=== PATIENT | male | born 1940 | race Caucasian/White ===

== ENCOUNTER 2022-01-23 17:03 | Inpatient (IN) | payer MEDICARE, OTHER ==
[~2022-01-23] VITALS: Ht 177.8 cm; Wt 81.5 kg
[2022-01-23 17:32] LABS: BASOPHILS % (AUTO) 0 % (0-10); EOSINOPHILS % (AUTO) 1 % (0-10); HEMATOCRIT 34 % (40-54); LYMPHOCYTES # (AUTO) 0.9 10^3/uL (1.0-4.0); LYMPHOCYTES % (AUTO) 12 % (12-44); MEAN CORPUSCULAR HEMOGLOBIN 27 pg (25-34); MEAN CORPUSCULAR HGB CONC 36 g/dL (32-36); MEAN CORPUSCULAR VOLUME 75 fL (80-99); MEAN PLATELET VOLUME 8.6 fL (9.0-12.2); MONOCYTES # (AUTO) 0.5 10^3/uL (0.0-1.0); MONOCYTES % (AUTO) 6 % (0-12); NEUTROPHILS # (AUTO) 6.2 10^3/uL (1.8-7.8); NEUTROPHILS % (AUTO) 81 % (42-75); PLATELET COUNT 405 10^3/uL (130-400); WHITE BLOOD COUNT 7.7 10^3/uL (4.3-11.0)
--- NOTE | 2022-01-23 17:36 | Diagnostic Imaging Report ---
INDICATION: Weak, vomiting. Shortness of air. COMPARISON: None FINDINGS: Two frontal radiographic views of the chest were obtained and demonstrate normal heart size and pulmonary vascularity. The lungs are well aerated and clear. No large pleural effusion or pneumothorax is seen. The visualized osseous structures show no acute abnormalities. IMPRESSION: 1. No acute cardiopulmonary process. Dictated by: Dictated on workstation # [id number]
--- NOTE | 2022-01-23 17:42 | ED Abdominal Pain ---
General Chief Complaint: Abdominal/GI Problems Stated Complaint: WEAKNESS/VOMITING Nursing Triage Note: PT PRESENTS TO ED WITH COMPLAINTS OF COMPLAINTS OF N/V, IRRITATION, HEARTBURN, RAND SINCE YESTERDAY EVENING. Source of Information: Patient Exam Limitations: No Limitations History of Present Illness Date Seen by Provider: Jan 23, 2022 Time Seen by Provider: 17:40 Initial Comments To ER from [facility] where he is at for rehab following a right hip fracture. He has a headache and vomiting since yesterday. No fevers or chills. He had Zofran called in and has been receiving that without much improvement in symptoms. Timing/Duration: 1-2 Days Severity/Quality: Moderate Radiation: No Radiation Activities at Onset: None Associated Symptoms: Headache, Nausea/Vomiting Allergies and Home Medications Allergies Coded Allergies: Penicillins (Verified Allergy, Unknown, 01/23/22) bee venom protein (honey bee) (Verified Allergy, Unknown, 01/23/22) codeine (Verified Allergy, Unknown, 01/23/22) Patient Home Medication List Home Medication List Reviewed: Yes Review of Systems Review of Systems Constitutional: see HPI EENTM: No Symptoms Reported Respiratory: No Symptoms Reported Cardiovascular: No Symptoms Reported Gastrointestinal: See HPI, Abdominal Pain; Denies Diarrhea; Nausea Genitourinary: No Symptoms Reported Musculoskeletal: no symptoms reported Psychiatric/Neurological: No Symptoms Reported Endocrine: No Symptoms Reported Hematologic/Lymphatic: No Symptoms Reported Past Yjoniwu-Yylhwq-Lleaqq Hx Patient Social History Tobacco Use?: Yes Smoking Status: Former Smoker Substance use?: No Alcohol Use?: No Pt feels they are or have been: No Immunizations Up To Date First/Initial COVID19 Vaccinat: YES Second COVID19 Vaccination Rick: YES 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 Physical Exam Vital Signs Vital Signs - First Documented 01/23/22 17:28 Temp 35.8 Pulse 77 Resp 18 B/P (MAP) 167/92 (117) Pulse Ox 94 Capillary Refill : Less Than 3 Seconds Height/Weight/BMI Height: '" Weight: lbs. oz. kg; 26.00 BMI Method: General Appearance: WD/WN, no apparent distress, other (No distress alert and oriented GCS 15. He states his headache "isNt bad".) HEENT: PERRL/EOMI, normal ENT inspection Neck: non-tender, full range of motion Respiratory: no respiratory distress, no accessory muscle use Cardiovascular: regular rate, rhythm, no murmur Gastrointestinal: normal bowel sounds, soft, tenderness (Right abdomen tender. Old healed incisions to the midline abdomen and right lower abdomen from what he states was appendectomy and cholecystectomy.) Extremities: normal range of motion, non-tender, normal inspection Skin: normal color, warm/dry Progress/Results/Core Measures Results/Orders Lab Results Laboratory Tests Test 01/23/22 17:25 Range/Units White Blood Count 7.7 4.3-11.0 10^3/uL Red Blood Count 4.48 4.30-5.52 10^6/uL Hemoglobin 12.0 L 13.3-17.7 g/dL Hematocrit 34 L 40-54 % Mean Corpuscular Volume 75 L 80-99 fL Mean Corpuscular Hemoglobin 27 25-34 pg Mean Corpuscular Hemoglobin Concent 36 32-36 g/dL Red Cell Distribution Width 13.3 10.0-14.5 % Platelet Count 405 H 130-400 10^3/uL Mean Platelet Volume 8.6 L 9.0-12.2 fL Immature Granulocyte % (Auto) 1 % Neutrophils (%) (Auto) 81 H 42-75 % Lymphocytes (%) (Auto) 12 12-44 % Monocytes (%) (Auto) 6 0-12 % Eosinophils (%) (Auto) 1 0-10 % Basophils (%) (Auto) 0 0-10 % Neutrophils # (Auto) 6.2 1.8-7.8 10^3/uL Lymphocytes # (Auto) 0.9 L 1.0-4.0 10^3/uL Monocytes # (Auto) 0.5 0.0-1.0 10^3/uL Eosinophils # (Auto) 0.0 0.0-0.3 10^3/uL Basophils # (Auto) 0.0 0.0-0.1 10^3/uL Immature Granulocyte # (Auto) 0.1 0.0-0.1 10^3/uL Prothrombin Time 14.1 12.2-14.7 SEC INR Comment 1.1 0.8-1.4 Sodium Level 108 *L 135-145 MMOL/L Potassium Level 3.1 L 3.6-5.0 MMOL/L Chloride Level 74 L 98-107 MMOL/L Carbon Dioxide Level 21 21-32 MMOL/L Anion Gap 13 5-14 MMOL/L Blood Urea Nitrogen 9 7-18 MG/DL Creatinine 0.80 0.60-1.30 MG/DL Estimat Glomerular Filtration Rate 88 BUN/Creatinine Ratio 11 Glucose Level 115 H 70-105 MG/DL Calcium Level 8.9 8.5-10.1 MG/DL Corrected Calcium 9.1 8.5-10.1 MG/DL Magnesium Level 1.3 L 1.6-2.4 MG/DL Total Bilirubin 1.2 H 0.1-1.0 MG/DL Aspartate Amino Transf (AST/SGOT) 24 5-34 U/L Alanine Aminotransferase (ALT/SGPT) 19 0-55 U/L Alkaline Phosphatase 107 40-136 U/L B-Type Natriuretic Peptide 41.0 <100.0 PG/ML Total Protein 6.4 6.4-8.2 GM/DL Albumin 3.8 3.2-4.5 GM/DL Lipase 35 8-78 U/L My Orders Orders - ANUPAM RAYMOND FIELD REP Cbc With Automated Diff (01/23/22 17:14) Comprehensive Metabolic Panel (01/23/22 17:14) Ua Culture If Indicated (01/23/22 17:14) Ed Iv/Invasive Line Start (01/23/22 17:14) Chest 1 View, Ap/Pa Only (01/23/22 17:14) Magnesium (01/23/22 17:14) Bnp Kailyn (01/23/22 17:14) Lipase (01/23/22 17:14) Protime With Inr (01/23/22 17:14) Ct Head Wo (01/23/22 17:38) Ct Abdomen/Pelvis Wo (01/23/22 17:38) Lactated Ringers (Lr 1000 Ml Iv Solution (01/23/22 17:45) Ketorolac Injection (Toradol Injection) (01/23/22 17:45) Promethazine Injection (Phenergan Injec (01/23/22 17:45) Sodium Chloride 3% (Hypertonic Sodium Ch (01/23/22 18:30) Osmolality Urine (01/23/22 18:38) Osmolality Serum (01/23/22 18:38) Sodium Urine Random (01/23/22 18:38) Thyroid Stimulating Hormone (01/23/22 18:38) Medications Given in ED Current Medications Medications Dose Ordered Sig/Latasha Route Start Time Stop Time Status Last Admin Dose Admin Ketorolac Tromethamine 15 mg ONCE ONCE IVP 01/23/22 17:45 01/23/22 17:46 DC 01/23/22 18:15 15 MG Promethazine HCl 12.5 mg ONCE ONCE IVP 01/23/22 17:45 01/23/22 17:46 DC 01/23/22 18:15 12.5 MG Vital Signs/I&O 01/23/22 17:28 Temp 35.8 Pulse 77 Resp 18 B/P (MAP) 167/92 (117) Pulse Ox 94 Blood Pressure Mean: 117 Departure Communication (Admissions) 1835-spoke with Dr. Junior hospitalist and Dr. Dorantes from [facility]. They would both like to finish the liter of LR. Then we will repeat a basic metabolic at 4 hours after the first 1 which would be 2124. She would also like a serum osmolality sent at that point and would like a urine osmolality and urine sodium as well as TSH sent. He is alert. There is been no seizure history. He is never been here before for me to evaluate previous sodium levels. 1851-spoke with the patient and his daughter who is at the bedside. They are not aware that his sodium has ever been low. Daughter asks if this could make him more tired than usual because he does seem to be a bit more tired recently. He states that he has been eating and drinking fine until yesterday when he developed the nausea and the headache and because of that he did not eat much but he did drink plenty of fluids and reports that he still feels like he is drinking enough fluids. He does not appear to be hyper or hypovolemic. Mucous membranes are moist. He has surprisingly mild symptoms given his severe hyponatremia. He was able to use the urinal to produce a urine sample for us. NAME: ANN MARIE JAIN MED REC#: [id number] PT STATUS: REG ER : 1940 PHYSICIAN: ANUPAM RAYMOND APRN ADMIT DATE: 01/23/22/ER Draft Date of Exam:01/23/22 CT HEAD WO INDICATION: HEADACHE VOMITING. TECHNIQUE: Routine non contrast-enhanced axial images were obtained from the skull base to the vertex. Auto Exposure Controls were utilized during the CT exam to meet ALARA standards for radiation dose reduction COMPARISON: None. FINDINGS: The ventricles and cortical sulci are diffusely prominent, compatible with age-related volume loss. There are confluent areas of abnormal, low attenuation in the periventricular white matter. Findings are most suggestive of chronic small vessel ischemic changes. There is, however, an asymmetric area of more prominent diminished attenuation extending from the periventricular deep white matter of the posterior horn of the right lateral ventricle to the subcortical deep white matter of the right temporal lobe. Cortical medullary differentiation in this area is maintained. There is no midline shift or mass-effect. No acute intra-axial hemorrhage is seen. There is no intra or extra-axial intracranial hemorrhage. No extra-axial masses or collections are present. The bony calvarium is intact. The visualized paranasal sinuses show small air-fluid level in the right sphenoid sinus. The mastoid air cells are clear. IMPRESSION: 1. No CT evidence of acute infarct or intracranial hemorrhage. 2. Asymmetric prominent area of diminished deep white matter attenuation of the right parietal lobe as described above. Findings may be on the basis of focal area of asymmetric chronic small vessel ischemic change. Given preservation of wei-white matter junction differentiation, cytotoxic edema from infarct is felt to be unlikely. Vasogenic edema from underlying parenchymal mass is a consideration, although no suspicious abnormality is seen on this noncontrast exam. Correlation with postcontrast MRI of the brain is recommended. Dictated on workstation # [id number] Dict: 01/23/22 1804 Trans: 01/23/22 1812 LUIS [id number] Interpreted by: MICHEL GARCIA MD Electronically signed by: NAME: ANN MARIE JAIN [facility] REC#: [id number] PT STATUS: REG ER : 1940 PHYSICIAN: ANUPAM RAYMOND APRN ADMIT DATE: 01/23/22/ER Signed Date of Exam:01/23/22 CT ABDOMEN/PELVIS WO PROCEDURE: CT abdomen and pelvis without contrast. TECHNIQUE: Multiple contiguous axial images were obtained through the abdomen and pelvis without the use of intravenous contrast. Auto Exposure Controls were utilized during the CT exam to meet ALARA standards for radiation dose reduction. INDICATION: Vomiting, pain, hip surgery 1 week ago. EXAMINATION: CT abdomen and pelvis without contrast 01/23/2022 FINDINGS: There is bibasilar atelectasis with a calcified granuloma at the left lung base. A tiny nodule in the right middle lobe may be calcified. This is less than 2 mm in size. The nonopacified abdominal viscera limited in evaluation given the lack of contrast. There are postcholecystectomy changes. The liver appears grossly unremarkable. The spleen and adrenal glands unremarkable. Pancreas unremarkable. There is a small hiatal hernia. There is a simple cyst along the lateral border of the left kidney. Kidneys otherwise unremarkable. Appendix not seen with clips in the right lower quadrant possibly due to a previous appendectomy. There is a nonobstructive bowel gas pattern. Diverticular disease is seen without evidence for acute diverticulitis. There is diffuse atherosclerotic disease. 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 There is no ascites or free air. There is a small fat-containing umbilical hernia. There is postoperative change about the right hip with a hip fracture noted in good anatomic alignment. Diffuse soft tissue prominence about the region likely postoperative and posttraumatic. Remaining osseous structures demonstrate degenerative changes with an age-indeterminate compression fracture at L1 and minimal loss of height also seen at T10, also age indeterminate. IMPRESSION: 1. Incidental findings throughout the abdomen and pelvis with no acute intra-abdominal process appreciated. 2. Postoperative changes about the right hip. 3. Age indeterminate fractures in the thoracolumbar spine. 4. Other findings, as above. Dictated by: Dictated on workstation # [id number] Dict: 01/23/22 1804 Trans: 01/23/221814 [facility] [id number] Interpreted by: ANGELINA CARLTON MD Electronically signed by: ANGELINA CARLTON MD 01/23/221814 Impression Primary Impression: hyponatremia Disposition: ADMITTED INPATIENT Condition: Stable Admissions Decision to Admit Reason: Admit from ER (General) Decision to Admit/Date: Jan 23, 2022 Time/Decision to Admit Time: 18:20 Departure-Patient Inst. Referrals: DAVID ESTRADA MD (PCP/Family) Primary Care Physician ANUPAM RAYMOND APRN Jan 23, 2022 17:42
[2022-01-23] MEDS ORDERED: PROMETHAZINE INJ 25 MG/ML (PHENERGAN) AMP IVP ONE (17:45)
[2022-01-23] MEDS ORDERED: KETOROLAC 30 MG/ML VIAL IVP ONE (17:45)
[2022-01-23] MEDS ORDERED: LACTATED RINGERS 1,000 ML IV SCH (17:45)
[2022-01-23 17:46] LABS: ALBUMIN 3.8 GM/DL (3.2-4.5); POTASSIUM 3.1 MMOL/L (3.6-5.0)
[2022-01-23 17:47] LABS: CALCIUM 8.9 MG/DL (8.5-10.1); INR 1.1 (0.8-1.4); PROTHROMBIN TIME PATIENT 14.1 SEC (12.2-14.7)
[2022-01-23 17:49] LABS: TOTAL PROTEIN 6.4 GM/DL (6.4-8.2)
[2022-01-23 17:50] LABS: BILIRUBIN,TOTAL 1.2 MG/DL (0.1-1.0)
[2022-01-23 17:52] LABS: CREATININE SERUM 0.8 MG/DL (0.60-1.30)
[2022-01-23 17:55] LABS: MAGNESIUM 1.3 MG/DL (1.6-2.4)
--- NOTE | 2022-01-23 18:13 | Diagnostic Imaging Report ---
INDICATION: HEADACHE VOMITING. TECHNIQUE: Routine non contrast-enhanced axial images were obtained from the skull base to the vertex. Auto Exposure Controls were utilized during the CT exam to meet ALARA standards for radiation dose reduction COMPARISON: None. FINDINGS: The ventricles and cortical sulci are diffusely prominent, compatible with age-related volume loss. There are confluent areas of abnormal, low attenuation in the periventricular white matter. Findings are most suggestive of chronic small vessel ischemic changes. There is, however, an asymmetric area of more prominent diminished attenuation extending from the periventricular deep white matter of the posterior horn of the right lateral ventricle to the subcortical deep white matter of the right temporal lobe. Cortical medullary differentiation in this area is maintained. There is no midline shift or mass-effect. No acute intra-axial hemorrhage is seen. There is no intra or extra-axial intracranial hemorrhage. No extra-axial masses or collections are present. The bony calvarium is intact. The visualized paranasal sinuses show small air-fluid level in the right sphenoid sinus. The mastoid air cells are clear. IMPRESSION: 1. No CT evidence of acute infarct or intracranial hemorrhage. 2. Asymmetric prominent area of diminished deep white matter attenuation of the right parietal lobe as described above. Findings may be on the basis of focal area of asymmetric chronic small vessel ischemic change. Given preservation of wei-white matter junction differentiation, cytotoxic edema from infarct is felt to be unlikely. Vasogenic edema from underlying parenchymal mass is a consideration, although no suspicious abnormality is seen on this noncontrast exam. Correlation with postcontrast MRI of the brain is recommended. Dictated by: Dictated on workstation # [id number]
--- NOTE | 2022-01-23 18:14 | Diagnostic Imaging Report ---
PROCEDURE: CT abdomen and pelvis without contrast. TECHNIQUE: Multiple contiguous axial images were obtained through the abdomen and pelvis without the use of intravenous contrast. Auto Exposure Controls were utilized during the CT exam to meet ALARA standards for radiation dose reduction. INDICATION: Vomiting, pain, hip surgery 1 week ago. EXAMINATION: CT abdomen and pelvis without contrast 01/23/2022 FINDINGS: There is bibasilar atelectasis with a calcified granuloma at the left lung base. A tiny nodule in the right middle lobe may be calcified. This is less than 2 mm in size. The nonopacified abdominal viscera limited in evaluation given the lack of contrast. There are postcholecystectomy changes. The liver appears grossly unremarkable. The spleen and adrenal glands unremarkable. Pancreas unremarkable. There is a small hiatal hernia. There is a simple cyst along the lateral border of the left kidney. Kidneys otherwise unremarkable. Appendix not seen with clips in the right lower quadrant possibly due to a previous appendectomy. There is a nonobstructive bowel gas pattern. Diverticular disease is seen without evidence for acute diverticulitis. There is diffuse atherosclerotic disease. 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 There is no ascites or free air. There is a small fat-containing umbilical hernia. There is postoperative change about the right hip with a hip fracture noted in good anatomic alignment. Diffuse soft tissue prominence about the region likely postoperative and posttraumatic. Remaining osseous structures demonstrate degenerative changes with an age-indeterminate compression fracture at L1 and minimal loss of height also seen at T10, also age indeterminate. IMPRESSION: 1. Incidental findings throughout the abdomen and pelvis with no acute intra-abdominal process appreciated. 2. Postoperative changes about the right hip. 3. Age indeterminate fractures in the thoracolumbar spine. 4. Other findings, as above. Dictated by: Dictated on workstation # [id number]
[2022-01-23] MEDS ORDERED: SODIUM CHLORIDE 3% 500 ML IV SCH (18:30)
[2022-01-23 18:55] LABS: BILIRUBIN,URINE NEGATIVE (NEGATIVE); CLARITY,URINE CLEAR; COLOR,URINE YELLOW; GLUCOSE, URINE (UA) NEGATIVE (NEGATIVE); KETONES,URINE NEGATIVE (NEGATIVE); LEUKOCYTE ESTERASE ,URINE NEGATIVE (NEGATIVE); NITRITE,URINE NEGATIVE (NEGATIVE); PROTEIN,URINE NEGATIVE (NEGATIVE)
[2022-01-23 19:04] LABS: AMORPHOUS SEDIMENT,UR FEW AMOR PHOSPHATE /LPF; BACTERIA,URINE NEGATIVE /HPF
[2022-01-23] MEDS ORDERED: ACETAMINOPHEN 325 MG TABLET PO PRN (21:15)
[2022-01-23] MEDS ORDERED: CALCIUM CARBONATE 500 MG (TUMS) TAB.CHEW PO PRN (21:15)
[2022-01-23] MEDS ORDERED: BISACODYL 10 MG SUPP (DULCOLAX) PR PRN (21:15)
[2022-01-23] MEDS ORDERED: diphenhydrAMINE 50 MG/ML INJ (BENADRYL) IVP PRN (21:15)
[2022-01-23] MEDS ORDERED: ONDANSETRON 4 MG (ZOFRAN) ORAL DISSOLVE TAB PO PRN (21:15)
[2022-01-23] MEDS ORDERED: ONDANSETRON 4 MG/2 ML (SDV) Z0FRAN IV PRN ×2 (21:15→22:45)
[2022-01-23] MEDS ORDERED: diphenhydrAMINE 25 MG TAB (BENADRYL) PO PRN (21:15)
[2022-01-23] MEDS ORDERED: polyethylene glycoL POWDER 17 GM (MIRALAX) PACK PO PRN (21:15)
[2022-01-23] MEDS ORDERED: morphine INJ 4 MG/ML 1 ML (VIAL/SYRINGE) IV PRN (21:15)
[2022-01-23] MEDS ORDERED: MELATONIN 3 MG TABLET PO PRN (21:15)
[2022-01-23] MEDS ORDERED: LACTULOSE SYRUP 10GM/15ML (ENULOSE) 30ML UDC PO PRN (21:15)
[2022-01-23] MEDS ORDERED: ANTACID SUSP 30 ML UDC (MYLANTA) PO PRN (21:15)
[2022-01-23] MEDS ORDERED: MILK OF MAGNESIA 400 MG/5 ML 30 ML UDC PO PRN (21:15)
[2022-01-23] MEDS ORDERED: PROMETHAZINE INJ 25 MG/ML (PHENERGAN) AMP IM PRN (21:15)
--- NOTE | 2022-01-23 21:30 | Tele-ICU Progress Note ---
Progress Note 81M has been at rehab for hip fx, transferred for RAND, vomitting since yesterday. Found to have Na 108 at 17:25. He has been given 1L LR, nothing currently infusing. Labs have just been drawn and are pending. Will review when available, should be <110 for goal of 116 on 01/24 at 1730. Will adjust fluids accordingly, likely requiring more LR or NS. Will use hypotonic if needed. Etiology of hyponatremia unclear. Urine electrolytes pending. Will evaluate med list when available. Focused Exam Height, Weight, BMI Height: '" Weight: lbs. oz. kg; 25.62 BMI Method: MAIKEL RANDHAWA MD Jan 23, 2022 21:30
[2022-01-23 21:44] LABS: CALCIUM 8.5 MG/DL (8.5-10.1); CREATININE SERUM 0.76 MG/DL (0.60-1.30); POTASSIUM 3.3 MMOL/L (3.6-5.0)
[2022-01-23 21:52] VITALS: BP 167/92
[2022-01-23] MEDS ORDERED: RT-ALBUTEROL SULF 2.5 MG/3 ML PRE-MIX VIAL INH PRN (22:00)
[2022-01-23] MEDS ORDERED: ONDANSETRON 4 MG/2 ML (SDV) Z0FRAN ONE (22:12)
[2022-01-23] MEDS ORDERED: NS IV 1000 ML 1,000 ML ONE (22:28)
[2022-01-23] MEDS: NS IV 1000 ML 1,000 ML IV SCH (22:36)
[2022-01-23] MEDS ORDERED: LORazepam INJ 2 MG/ML (ATIVAN) VIAL IV PRN (22:45)
[2022-01-23] MEDS ORDERED: PROMETHAZINE INJ 25 MG/ML (PHENERGAN) AMP IVP PRN (22:45)
[2022-01-23] MEDS: ENOXAPARIN 40 MG/0.4 ML (LOVENOX) SYR SC SCH (22:57)
[2022-01-23] MEDS: MAGNESIUM 1 GM/100 ML IVPB 100 ML IV SCH (22:58)
[2022-01-23] MEDS: POTASSIUM CL 10MEQ/50ML IVPB 50 ML IV SCH (22:58)
[2022-01-24] MEDS: MAGNESIUM 1 GM/100 ML IVPB 100 ML IV SCH ×4 (01:02→05:25)
[2022-01-24] MEDS: POTASSIUM CL 10MEQ/50ML IVPB 50 ML IV SCH ×10 (01:02→23:10)
[2022-01-24 01:26] LABS: POTASSIUM 3.2 MMOL/L (3.6-5.0)
[2022-01-24 01:27] LABS: CALCIUM 8.5 MG/DL (8.5-10.1)
[2022-01-24 01:31] LABS: CREATININE SERUM 0.78 MG/DL (0.60-1.30)
[2022-01-24 05:01] LABS: BASOPHILS % (AUTO) 0 % (0-10); EOSINOPHILS # (AUTO) 0.1 10^3/uL (0.0-0.3); EOSINOPHILS % (AUTO) 2 % (0-10); HEMATOCRIT 31 % (40-54); HEMOGLOBIN 10.8 g/dL (13.3-17.7); LYMPHOCYTES # (AUTO) 1.2 10^3/uL (1.0-4.0); LYMPHOCYTES % (AUTO) 19 % (12-44); MEAN CORPUSCULAR HEMOGLOBIN 27 pg (25-34); MEAN CORPUSCULAR HGB CONC 35 g/dL (32-36); MEAN CORPUSCULAR VOLUME 75 fL (80-99); MEAN PLATELET VOLUME 8.9 fL (9.0-12.2); MONOCYTES # (AUTO) 0.6 10^3/uL (0.0-1.0); MONOCYTES % (AUTO) 10 % (0-12); NEUTROPHILS # (AUTO) 4.3 10^3/uL (1.8-7.8); NEUTROPHILS % (AUTO) 68 % (42-75); PLATELET COUNT 357 10^3/uL (130-400); WHITE BLOOD COUNT 6.3 10^3/uL (4.3-11.0)
[2022-01-24 05:19] LABS: ALBUMIN 3.4 GM/DL (3.2-4.5); CALCIUM 8.3 MG/DL (8.5-10.1); CREATININE SERUM 0.76 MG/DL (0.60-1.30); PHOSPHORUS 2.5 MG/DL (2.3-4.7); POTASSIUM 3.3 MMOL/L (3.6-5.0); TOTAL PROTEIN 5.6 GM/DL (6.4-8.2)
[2022-01-24] MEDS: KCL 20 MEQ TAB (K-DUR) PO SCH (05:25)
[2022-01-24 09:20] LABS: CALCIUM 8.7 MG/DL (8.5-10.1); CREATININE SERUM 0.82 MG/DL (0.60-1.30); POTASSIUM 3.6 MMOL/L (3.6-5.0)
[2022-01-24] MEDS: DOCUSATE SODIUM 100 MG (COLACE) CAP PO SCH ×2 (09:39→20:05)
[2022-01-24] MEDS: SENNOSIDES 8.6 MG (SENOKOT) TAB PO SCH ×2 (09:40→20:05)
--- NOTE | 2022-01-24 09:50 | Tele-ICU Progress Note ---
Subjective Date Seen by a Provider: Jan 24, 2022 Time Seen by a Provider: 08:10 Subjective/Events-last exam This virtual visit was conducted using real time audio/video. Thank you for asking us to see this patient for Na 106. PE: Appears comfortable.VSS. O2 sat 95% on RA. HEENT: No obvious masses, adenopathy or JVD. Chest: clear to auscultation. CV: RRR S1 S2 No murmur or added sounds. Abd: Non-tender. Bowel sounds Y. : Unremarkable. Orellana . ILLUSTRATOR SET/psychiatric: Grossly intact. No obvious focal findings. Extremities: edema. Capillary refill < 3 seconds. Skin: Guille now up to 112. K 3.3 . Available chart/ vitals / labs / images reviewed. Video assessment done using teleICU camera, rest of exam as per RN. A/P: Critical Care: critically ill patient. Cont. NS for slow normalization of Na. Cont Lovenox. Discussed with ROBIN Shabazz. Asked RN to reach out to eICU if any questions or concerns later. Time spent with patient/coordination of care with other health professionals (mins): 20 Sepsis Event Evaluation Height, Weight, BMI Height: '" Weight: lbs. oz. kg; 25.62 BMI Method: Exam Exam Patient acknowledged, consented, and participated in this virtual visit which was conducted using real time audio/video Vital Signs Date Time Temp Pulse Resp B/P (MAP) Pulse Ox O2 Delivery O2 Flow Rate FiO2 01/24/22 08:00 84 12 128/85 Room Air 01/24/22 07:00 75 01/24/22 07:00 72 16 137/74 Room Air 01/24/22 06:00 67 15 129/84 NIV CPAP 01/24/22 05:00 69 9 129/78 NIV CPAP 01/24/22 04:36 36.1 01/24/22 04:00 NIV CPAP 01/24/22 04:00 68 10 126/83 NIV CPAP 01/24/22 03:00 81 11 142/83 98 NIV CPAP 01/24/22 02:34 82 12 127/92 92 NIV CPAP 01/24/22 01:00 75 15 119/88 97 NIV CPAP 01/24/22 01:00 75 01/24/22 00:00 73 15 140/87 94 NIV CPAP 01/24/22 00:00 NIV CPAP 01/23/22 23:35 NIV CPAP 01/23/22 23:30 36.4 01/23/22 23:24 73 13 128/83 95 Room Air 01/23/22 22:15 78 23 155/78 91 Room Air 01/23/22 22:00 77 16 142/83 92 Room Air 01/23/22 21:52 35.8 77 94 21 01/23/22 21:45 77 12 127/85 92 Room Air 01/23/22 21:30 89 17 159/86 94 Room Air 01/23/22 21:15 88 15 133/63 92 Room Air 01/23/22 21:00 89 12 154/97 93 Room Air 01/23/22 21:00 95 Room Air 01/23/22 20:48 37.7 89 14 155/93 95 Room Air 01/23/22 20:40 84 14 156/93 01/23/22 20:40 84 01/23/22 20:35 36.9 85 16 151/92 93 Room Air 01/23/22 17:28 35.8 77 18 167/92 (117) 94 I & O 01/24/22 07:00 Intake Total 1800 ml Output Total 1750 ml Balance 50 ml Height & Weight Height: '" Weight: lbs. oz. kg; 25.62 BMI Method: General Appearance: No Apparent Distress Capillary Refill: Less Than 3 Seconds Peripheral Pulses: 1+ Dorsalis Pedis (R), 1+ Left Dors-Pedis (L) (See free t ext.) Gastrointestinal: normal bowel sounds, soft, tenderness (Right abdomen tender. Old healed incisions to the midline abdomen and right lower abdomen from what he states was appendectomy and cholecystectomy.) Results Lab Laboratory Tests 01/23/22 17:25 01/23/22 21:10 01/24/22 01:09 01/24/22 04:45 01/24/22 08:41 Assessment/Plan Assessment/Plan See free text. Critical Care: Critically Ill Patient BOUBACAR WALSH MD Jan 24, 2022 09:50
--- NOTE | 2022-01-24 09:54 | Physical Therapy Evaluation ---
PT Evaluation-General Medical Diagnosis Admission Date Jan 23, 2022 at 18:41 Medical Diagnosis: hyponatremia Onset Date: Jan 23, 2022 Therapy Diagnosis Therapy Diagnosis: debility/weakness Precautions Precautions/Isolations: Fall Prevention, Standard Precautions Weight Bear Status Right Lower Extremity: Right Weight Bearing/Tolerated Left Lower Extremity: Left Full Weight Bearing Referral Physician: Leticia Reason for Referral: Evaluation/Treatment Medical History Additional Medical History right hip fracture Current History ER from [place] due to N&V, heartburn Reviewed History: Yes Social History Home: [facility] (for right hip fracture rehab) Prior Prior Level of Function SCALE: Activities may be completed with or without assistive devices. 2-Ziekcmxehu-dzszbiv completes the activity by him/herself with no assistance from a helper. 5-Set-up or Clean-up Assistance-helper sets up or cleans up; patient completes activity. [place] assists only prior to or following the activity. 4-Supervision or Touching Assistance-helper provides verbal cues and/or touching/steadying and/or contact guard assistance as patient completes activity. Assistance may be provided throughout the activity or intermittently. 3-Partial/Moderate Assistance-helper does LESS THAN HALF the effort. [place] lifts, holds or supports trunk or limbs, but provides less than half the effort. 2-Substantial/Maximal Assistance-helper does MORE THAN HALF the effort. [place] lifts or holds trunk or limbs and provides more than half the effort. 1-Jetqfumin-vqjove does ALL the effort. Patient does none of the effort to complete the activity. Or, the assistance of 2 or more helpers is required for the patient to complete the activity. If activity was not attempted, code reason: 7-Patient Refused. 9-Not Applicable-not attempted and the patient did not perform the activity before the current illness, exacerbation or injury. 10-Not Attempted due to Environmental Limitations-(lack of equipment, weather restraints, etc.). 88-Not Attempted due to Medical Conditions or Safety Concerns. Bed Mobility: 3 Transfers (B,C,W/C): 3 Gait: 3 Indoor Mobility (Ambulation): Needed Some Help Stairs: Not Applicalbe Prior Devices Use: Walker PT Evaluation-Current Subjective Patient agrees to PT. Pain Numeric Pain Scale: 5-Moderate Pain Location: Right Location Body Site: Hip Pain Description: Acute Objective Patient Orientation: Normal For Age Attachments: Orellana Catheter, IV ROM/Strength ROM Lower Extremities bilateral LE WFL Strength Lower Extremities right LE 3+/5 grossly/left LE 4/5 grossly Integumentary/Posture Bladder Incontinence: Orellana Cath Posture WFL Neuromuscular (Tone, Coordination, Reflexes) grossly intact Sensory Vision: Functional Hearing: Hearing Aid/Aides Transfers Lying to Sitting/Side of Bed(Q: 3 Sit to Stand (QC): 3 Chair/Zta-dr-Rwyjl Xfer(QC): 3 Gait Does the Patient Walk?: Yes Mode of Locomotion: Walk Anticipated Mode of Locomotion: Walk Walk 10 feet (QC): 3 Walk 50 ft with 2 Turns(QC): 3 Walk 150 ft (QC): 3 Distance: 200' Gait Assistive Device: FWW Comments/Gait Description slow, slightly antalgic and unsteady Balance Sitting Static: Normal Sitting Dynamic: Normal Standing Static: Fair Standing Dynamic: Fair Assessment/Needs 81 y.o. male, will benefit from skilled PT to address functional strength and mobility to improve current LOF. Patient is currently at [facility] assist LOF with all gross motor skills. Per patient, he is from home but fell on the ice last week resulting in right hip fracture. Transferred to [place] for rehab. Rehab Potential: Fair PT Snf Goals Snf Goals PT Substitute Teacher Goals Time Frame: Feb 04, 2022 Roll Left & Right (QC): 4 Sit to Lying (QC): 4 Lying-Sitting on Side/Bed(QC): 4 Sit to Stand (QC): 4 Chair/Zgz-wm-Zgqdr Xfer(QC): 4 Toilet Transfer (QC): 4 Walk 10 feet (QC): 4 Walk 50ft with 2 Turns (QC): 4 Walk 150 ft (QC): 4 PT Plan Problem List Problem List: Activity Tolerance, Functional Strength, Safety, Balance, Gait, Transfer, Bed Mobility Treatment/Plan Treatment Plan: Continue Plan of Care Treatment Plan: Bed Mobility, Education, Functional Activity Jamie, Functional Strength, Gait, Safety, Therapeutic Exercise, Transfers Treatment Duration: Feb 04, 2022 Frequency: 6 times per week Estimated Hrs Per Day: .5 hour per day Patient and/or Family Agrees t: Yes Time/GCodes Time In: 720 Time Out: 744 Total Billed Treatment Time: 24 Total Billed Treatment 1 visit EVModC 10min GT 14 min WANDER OTT PT Jan 24, 2022 09:54
--- NOTE | 2022-01-24 10:16 | Occupational Therapy Eval ---
OT Evaluation-General/PLF Medical Diagnosis Admission Date Jan 23, 2022 at 18:41 Medical Diagnosis: hyponatremia Onset Date: Jan 23, 2022 Therapy Diagnosis Therapy Diagnosis: reduced adl status, weakness Precautions Precautions/Isolations: Fall Prevention, Standard Precautions Referral Physician: Leticia Garcia Reason: Evaluation/Treatment Medical History Additional Medical History Recent R hip fracture. Current History Pt transferred from [facility] with c/o abdominal pain, heartburn, and vomiting. Per patient he was at [facility] for rehab after having recent R hip surgery. Pt denies having any hip precautions. Prior to surgery, pt was living in a single level home with his , son and daughter. He was indep with adls and shared all iadl responsibilities with his family. He was not using any AD prior to admission but was using a Walker while receiving rehab. Reviewed History: Yes Social History Home: Single Level Current Living Status: Spouse ADL-Prior Level of Function SCALE: Activities may be completed with or without assistive devices. 0-Hqdwptgvsi-dloyjrr completes the activity by him/herself with no assistance from a helper. 5-Set-up or Clean-up Assistance-helper sets up or cleans up; patient completes activity. [place] assists only prior to or following the activity. 4-Supervision or Touching Assistance-helper provides verbal cues and/or touching/steadying and/or contact guard assistance as patient completes activity. Assistance may be provided throughout the activity or intermittently. 3-Partial/Moderate Assistance-helper does LESS THAN HALF the effort. [place] lifts, holds or supports trunk or limbs, but provides less than half the effort. 2-Substantial/Maximal Assistance-helper does MORE THAN HALF the effort. [place] lifts or holds trunk or limbs and provides more than half the effort. 0-Cnqvtgzoo-rkreso does ALL the effort. Patient does none of the effort to complete the activity. Or, the assistance of 2 or more helpers is required for the patient to complete the activity. If activity was not attempted, code reason: 7-Patient Refused. 9-Not Applicable-not attempted and the patient did not perform the activity be fore the current illness, exacerbation or injury. 10-Not Attempted due to Environmental Limitations-(lack of equipment, weather restraints, etc.). 88-Not Attempted due to Medical Conditions or Safety Concerns. Self Care: Independent Functional Cognition: Independent DME/Equipment: Bath Chair, Tub/Shower OT Current Status Subjective Denies pain, reports feeling much better, agreeable to treatment. Appearance Pt returned to sitting in recliner, all needs within reach. Mental Status/Objective Patient Orientation: Person, Situation Attachments: IV, Telemetry Current Glasses/Contacts: Yes Hearing Aids: Yes (bilateral, still [place]) Hand Dominance: Right Upper Extremity ROM WNL Upper Extremity Strength 3+/5 throughout ADL-Treatment Eating (QC): 5 Lower Body Dressing (QC): 3 On/Off Footwear (QC): 4 Pt sitting using urinal at OT arrival. He denies having hip precautions/restrictions (no notes clarify what kind of surgery was performed). OT educated pt on adaptive equipment and paying attention to pain tolerance. He was able to don/doff bilateral socks without assist, extra time only with R due to weakness and extra effort to lift completely off the floor. No c/o pain. He stood with Min a, slightly unsteady. He was able to demonstrate lifting one hand off walker for a short time (~15 seconds) with min a for balance. Anticipate steadying/min a will be needed at this time during clothing management. Education OT Patient Education: Correct positioning, Disease process, Energy conservation, Modified ADL techniques, Purpose of tx/functional activities, Reviewed precautions, Safety issues, Use of adapted equipment Teaching Recipient: Patient Teaching Methods: Discussion Response to Teaching: Verbalize Understanding, Return Demonstration, Reinforcement Needed OT Back Tender Cloth Printing Goals Back Tender [employer] Printing Goals 1=Demonstrate adherence to instructed precautions during ADL tasks. 2=Patient will verbalize/demonstrate understanding of assistive devices/modifications for ADL. 3=Patient will improve strength/tolerance for activity to enable patient to perform ADL's. OT Education/Plan Problem List/Assessment Assessment: Decreased Activ Tolerance, Decreased UE Strength, Impaired Funct Balance, Impaired I ADL's, Impaired Self-Care Skills Discharge Recommendations Plan/Recommendations: Continue POC Therapy Discharge Recommendati: Post Acute OT Target Placement anticipate return to [facility] Treatment Plan/Plan of Care Treatment,Training & Education: Yes Patient would benefit from OT for education, treatment and training to promote independence in ADL's, mobility, safety and/or upper extremity function for ADL's. Plan of Care: ADL Retraining, Functional Mobility, Group Exercise/Act as Ind, UE Funct Exercise/Act Treatment Duration: Feb 03, 2022 Frequency: 3 times per week (3-5x/week) Estimated Hrs Per Day: .25 hour per day Agreement: Yes Rehab Potential: Fair Time/GCodes Start Time: 09:46 Stop Time: 09:58 Total Time Billed (hr/min): 12 Billed Treatment Time 1 visit Re [place] OT Jan 24, 2022 10:16
--- NOTE | 2022-01-24 10:34 | History & Physical ---
MIGUEL JUNIOR 01/24/22 1034: History of Present Illness History of Present Illness Reason for visit/HPI CC: Abdominal Pain and Vomiting HPI: This is a 81 yo M who presented to the ER on 01/23/2022 with abdominal pain and vomiting from [facility] where he is completing rehab following a right hip fracture. History of COPD, wears O2 as needed. Patient also had weakness, headache, and heart burn symptoms. Zofran did not improve symptoms. Initial labs on 01/23 showed the patient to have hyponatremia at 108, hypokalemia at 3.1, and hypochloremia at 74. CXR on 01/[address] abdomen/pelvis on 01/23 were both unremarkable. Head CT on 01/23 showed no acute infarct or intracranial hemorrhage, and does have a parenchymal mass. Further imaging by MRI suggested. When visiting the patient today, he reported to be doing much better. Not having abdominal pain, nausea, or vomiting. He is also getting up and walking down the hyman with PT. Date of Admission Jan 23, 2022 at 18:41 Date Seen by a Provider: Jan 24, 2022 Time Seen by a Provider: 08:40 I consulted on this patient on 01/24/22 10:33 Attending Physician Sasha Junior MD Admitting Physician Bruno Richardson MD Consult Allergies and Home Medications Allergies Coded Allergies: Penicillins (Verified Allergy, Unknown, 01/23/22) bee venom protein (honey bee) (Verified Allergy, Unknown, 01/23/22) codeine (Verified Allergy, Unknown, 01/23/22) Patient Home Medication List Acetaminophen (Tylenol Extra Strength) 500 Mg Tablet, 500-1,000 MG PO Q6H, (Reported) Entered as Reported by: GENA BJEARANO on 01/24/221127 Last Action: Continued Aspirin (Aspirin) 81 Mg Tab.chew, 81 MG PO DAILY, (Reported) Entered as Reported by: GENA BEJARANO on 01/24/221127 Last Action: Continued Donepezil HCl (Donepezil HCl) 10 Mg Tablet, 10 MG PO HS, (Reported) Entered as Reported by: GENA BEJARANO on 01/24/221127 Last Action: Continued Ergocalciferol (Vitamin D2) (Vitamin D2) 50 Mcg Capsule, 50 MCG PO DAILY, (Reported) Entered as Reported by: GENA BEJARANO on 01/24/221127 Last Action: Converted Famotidine (Pepcid) 20 Mg Tablet, 20 MG PO BID, (Reported) Entered as Reported by: GENA BEJARANO on 01/24/221127 Last Action: Continued Losartan/Hydrochlorothiazide (Losartan-Hctz 100-25 mg Tab) 1 Each Tablet, 1 EACH PO BID, (Reported) Entered as Reported by: GENA BEJARANO on 01/24/221127 Last Action: Held Montelukast Sodium (Montelukast Sodium) 10 Mg Tablet, 10 MG PO HS, (Reported) Entered as Reported by: GENA BEJARANO on 01/24/221127 Last Action: Continued [employer] Fatty Acids/Fish Oil ([employer] 3 1,000 mg Softgel) 1 Each Capsule, 1 EACH PO Q12H, (Reported) Entered as Reported by: GENA BEJARANO on 01/24/221127 Last Action: Converted Omeprazole (Omeprazole) 20 Mg Capsule.dr, 20 MG PO DAILY, (Reported) Entered as Reported by: GENA BEJARANO on 01/24/221127 Last Action: Continued Ondansetron (Ondansetron Odt) 8 Mg Tab.rapdis, 8 MG PO Q6H PRN for NAUSEA/VOMITING-1ST LINE, (Reported) Entered as Reported by: GENA BEJARANO on 01/24/221127 Last Action: Converted Venlafaxine HCl (Venlafaxine HCl ER) 150 Mg Cap.er.24h, 150 MG PO DAILY, (Reported) Entered as Reported by: GENA BEJARANO on 01/24/221127 Last Action: Converted Vit A/C/E/Zinc/Co (Preservision Areds Softgel) 1 Cap Capsule, 1 CAP PO BID, (Reported) Entered as Reported by: GENA BEJARANO on 01/24/221127 Last Action: Continued Past Srspxvt-Grntxj-Qxmkow Hx Patient Social History Tobacco Use?: No Tobacco type used: Cigarettes Smoking Status: Former Smoker Smokeless Tobacco Frequency: Never a User Use of E-Cig and/or Vaping dev: No Substance use?: No Alcohol Use?: No Pt feels they are or have been: No Immunizations Up To Date First/Initial COVID19 Vaccinat: 2020 Second COVID19 Vaccination Rick: 2020 Current Status Advance Directives: No Communicates: Verbally Primary Language: [place] Preferred Spoken Language: [place]agu[place] Sensory deficits: Hearing impairment Implanted or Applied Medical D: None Review of Systems Constitutional: No chills, No diaphoresis, No dizziness, No fever EENTM: No hearing loss, No blurred vision Respiratory: No cough, No dyspnea on exertion Cardiovascular: No chest pain, No edema Gastrointestinal: No abdominal pain, No diarrhea, No nausea, No vomiting Genitourinary: No decreased output, No dysuria Musculoskeletal: No back pain, No muscle pain Skin: No change in color, No dryness Psychiatric/Neurological: Denies Anxiety, Denies Depressed, Denies Headache Physical Exam Vital Signs Vital Signs - First Documented 01/23/22 01/23/22 01/23/22 17:28 20:35 21:52 Temp 35.8 Pulse 77 Resp 18 B/P (MAP) 167/92 (117) Pulse Ox 94 O2 Delivery Room Air FiO2 21 Capillary Refill : Less Than 3 Seconds Height, Weight, BMI Height: '" Weight: lbs. oz. kg; 25.62 BMI Method: General Appearance: No Apparent Distress, WD/WN, Other (Elderly) Respiratory: Chest Non Tender, Lungs Clear, Normal Breath Sounds, No Accessory Muscle Use, No Respiratory Distress Cardiovascular: No Murmur Gastrointestinal: Normal Bowel Sounds, No Organomegaly, No Pulsatile Mass, Non Tender, Soft Neurologic/Psychiatric: Alert, Oriented x3, No Motor/Sensory Deficits Skin: Normal Color, Warm/Dry Assessment/Plan Assessment and Plan Assessment: Emesis Hyponatremia Hypokalemia Hypochloremia Weakness Parenchymal Mass- Head CT on 01/23 Plan: 01/23/2022 Start with hypertonic saline to address hyponatremia, then to normal saline IVF Potassium Supplement Supportive Care Brain MRI CARLITOS BOWLES DO 01/25/22 0630: History of Present Illness History of Present Illness Reason for visit/HPI Chief complaint: Hyponatremia History of present illness: This is an 81-year-old white male clinic patient of [facility] in [place] who remains at [facility] to recover from right hip fracture who presents to the ER with nausea and vomiting and abdominal pain found to have hyponatremia of 108. He was placed on normal saline and eICU has been monitoring BMP checks every 4 hours. MRI will be obtained to evaluate a brain mass. Allergies and Home Medications Allergies Coded Allergies: Penicillins (Verified Allergy, Unknown, 01/23/22) bee venom protein (honey bee) (Verified Allergy, Unknown, 01/23/22) codeine (Verified Allergy, Unknown, 01/23/22) Patient Home Medication List Home Medication List Reviewed: Yes Acetaminophen (Tylenol Extra Strength) 500 Mg Tablet, 500-1,000 MG PO Q6H, (Reported) Entered as Reported by: GENA BEJARANO on 01/24/221127 Last Action: Continued Aspirin (Aspirin) 81 Mg Tab.chew, 81 MG PO DAILY, (Reported) Entered as Reported by: GENA BEJARANO on 01/24/221127 Last Action: Continued Donepezil HCl (Donepezil HCl) 10 Mg Tablet, 10 MG PO HS, (Reported) Entered as Reported by: GENA BEJARANO on 01/24/221127 Last Action: Continued Ergocalciferol (Vitamin D2) (Vitamin D2) 50 Mcg Capsule, 50 MCG PO DAILY, (Reported) Entered as Reported by: GENA BEJARANO on 01/24/221127 Last Action: Converted Famotidine (Pepcid) 20 Mg Tablet, 20 MG PO BID, (Reported) Entered as Reported by: GENA BEJARANO on 01/24/221127 Last Action: Continued Losartan/Hydrochlorothiazide (Losartan-Hctz 100-25 mg Tab) 1 Each Tablet, 1 EACH PO BID, (Reported) Entered as Reported by: GENA BEJARANO on 01/24/221127 Last Action: Held Montelukast Sodium (Montelukast Sodium) 10 Mg Tablet, 10 MG PO HS, (Reported) Entered as Reported by: GENA BEJARANO on 01/24/221127 Last Action: Continued [employer] Fatty Acids/Fish Oil ([employer] 3 1,000 mg Softgel) 1 Each Capsule, 1 EACH PO Q12H, (Reported) Entered as Reported by: GENA BEJARANO on 01/24/221127 Last Action: Converted Omeprazole (Omeprazole) 20 Mg Capsule.dr, 20 MG PO DAILY, (Reported) Entered as Reported by: GENA BEJARANO on 01/24/221127 Last Action: Continued Ondansetron (Ondansetron Odt) 8 Mg Tab.rapdis, 8 MG PO Q6H PRN for NAUSEA/VOMITING-1ST LINE, (Reported) Entered as Reported by: GENA BEJARANO on 01/24/221127 Last Action: Converted Venlafaxine HCl (Venlafaxine HCl ER) 150 Mg Cap.er.24h, 150 MG PO DAILY, (Reported) Entered as Reported by: GENA BEJARANO on 01/24/221127 Last Action: Converted Vit A/C/E/Zinc/Co (Preservision Areds Softgel) 1 Cap Capsule, 1 CAP PO BID, (Reported) Entered as Reported by: GENA BEJARANO on 01/24/221127 Last Action: Continued Past Yxwzuix-Cuiupy-Babals Hx Patient Social History Marrital Status: Employed/Student: retired Smoking Status: Former Smoker Past Medical History Surgeries: Orthopedic COPD High Cholesterol, Hypertension Dementia Bladder Infection Gastroesophageal Reflux Review of Systems Constitutional: see HPI, malaise, weakness EENTM: no symptoms reported Respiratory: no symptoms reported Cardiovascular: no symptoms reported Gastrointestinal: no symptoms reported Genitourinary: no symptoms reported Musculoskeletal: joint pain Skin: no symptoms reported Physical Exam General Appearance: No Apparent Distress, WD/WN, Chronically ill, Other (frail) Eyes: Bilateral Eye Normal Inspection, Bilateral Eye PERRL, Bilateral Eye EOMI HEENT: PERRL/EOMI, Normal ENT Inspection, Pharynx Normal Neck: Full Range of Motion, Normal Inspection, Non Tender, Supple, Carotid Bruit Respiratory: Chest Non Tender, Lungs Clear, Normal Breath Sounds, No Accessory Muscle Use, No Respiratory Distress Cardiovascular: Regular Rate, Rhythm, No Edema, No Gallop, No JVD, No Murmur, Normal Peripheral Pulses Gastrointestinal: Normal Bowel Sounds, No Organomegaly, No Pulsatile Mass, Non Tender, Soft Back: Normal Inspection, No CVA Tenderness, No Vertebral Tenderness Extremity: Normal Capillary Refill, Normal Inspection, Normal Range of Motion, Non Tender, No Calf Tenderness, No Pedal Edema Neurologic/Psychiatric: Alert, Oriented x3, No Motor/Sensory Deficits, Normal Mood/Affect Skin: Normal Color, Warm/Dry Lymphatic: No Adenopathy Assessment/Plan Assessment and Plan Assessment: Hyponatremia N/V CVA on MRI Weakness Hip fracture hx Dementia Plan: Fluid restriction NS BMP Cardiology consult Carotid usg Lipid Problems: (1) Hyponatremia (2) CVA (cerebral vascular accident) (3) Hypertension (4) Hip fracture (5) Dementia Admission Diagnosis Admission Status: Inpatient Order (span 2 midnights) Reason for Inpatient Admission: Hyponatremia Supervisory-Addendum Brief Verification & Attestation Participated in pt care: history, MDM, physical Personally performed: exam, history, MDM, supervision of care Care discussed with: Medical Student Procedures: n/a Results interpretation: Verified all documentation Verification and Attestation of Medical Student E/M Service A medical student performed and documented this service in my presence. I reviewed and verified all information documented by the medical student and made modifications to such information, when appropriate. I personally performed the physical exam and medical decision making. Carlitos Bowles, Jan 25, 2022,06:31 MIGUEL JUNIOR Jan 24, 2022 10:34 CARLITOS BOWLES DO Jan 25, 2022 06:30
[2022-01-24] MEDS: NS IV 1000 ML 1,000 ML IV SCH ×2 (10:56→20:38)
[2022-01-24] MEDS ORDERED: VENL150C98 PO (11:28)
[2022-01-24] MEDS ORDERED: OMEG1CAP58 PO (11:28)
[2022-01-24] MEDS ORDERED: ASPI-999 PO (11:28)
[2022-01-24] MEDS ORDERED: MONT-40 PO (11:28)
[2022-01-24] MEDS ORDERED: OMEP20CA18 PO (11:28)
[2022-01-24] MEDS ORDERED: FAMO-119 PO (11:28)
[2022-01-24] MEDS ORDERED: DONE10TA41 PO (11:28)
[2022-01-24] MEDS ORDERED: ACET-2267 PO (11:28)
[2022-01-24] MEDS ORDERED: ONDA8TAB13 PO (11:28)
[2022-01-24] MEDS ORDERED: VIT1CAPS5 PO (11:28)
[2022-01-24] MEDS ORDERED: LOSA1TAB23 PO (11:28)
[2022-01-24] MEDS ORDERED: ERGO50CA PO (11:28)
[2022-01-24] MEDS ORDERED: GADOTERATE 0.5 MMOL/ML (CLARISCAN) 15 ML VIAL IV ONE (12:30)
[2022-01-24 12:43] LABS: POTASSIUM 4.1 MMOL/L (3.6-5.0)
[2022-01-24 12:44] LABS: CALCIUM 8.7 MG/DL (8.5-10.1)
[2022-01-24 12:48] LABS: CREATININE SERUM 0.77 MG/DL (0.60-1.30)
[2022-01-24] MEDS ORDERED: ACETAMINOPHEN 500 MG TAB (TYLENOL) PO SCH (13:15)
[2022-01-24] MEDS ORDERED: ONDANSETRON 4 MG (ZOFRAN) ORAL DISSOLVE TAB PO PRN (13:15)
[2022-01-24] MEDS ORDERED: NON-FORMULARY MEDICATION 1 EA EA (Ondansetron (Ondansetron Odt) 8 MG) PO PRN (13:15)
[2022-01-24] MEDS ORDERED: ACETAMINOPHEN 500 MG TAB (TYLENOL) PO PRN (13:30)
--- NOTE | 2022-01-24 14:06 | Diagnostic Imaging Report ---
CLINICAL INDICATION: Abnormality found on prior head CT. MRI brain recommended. EXAM: MRI of the brain performed without and with 15 cc of Clariscan IV contrast. Sequences include axial DWI, ADC map, axial gradient echo, axial T2, axial FLAIR, axial T1, axial T1 post IV contrast, coronal T1 fat-sat post IV contrast, and sagittal T1 post IV contrast. COMPARISON: Head CT without contrast dated 01/23/2022. FINDINGS: There is no abnormal IV contrast enhancement seen on this exam. There is a roughly 13 mm x 4 mm area of diffusion restriction involving the high posterior right frontal lobe subcortical white matter. There is associated increased T2 signal in the region. There is a small area of elevated DWI and increased ADC map signal related to T2 shine-through involving right posterior aspects of the griffin. There are other small areas of high T2 signal involving the griffin, which may be related to chronic ischemic disease. There are no other areas of acute cerebral infarct. There is no intracranial hemorrhage, brain herniation, or midline shift. There is a 4 mm area of low gradient echo signal involving the right cerebellum. There is no associated T2 or T1 signal with it, and this may represent an area of remote microhemorrhage. There is a small confluent area of high T2 signal involving the right parietal lobe subcortical and deep white matter region, which was noted on the prior head CT. This does not involve the cortex. This may represent an area of asymmetric chronic ischemic changes. There are other focal, patchy, and confluent areas of high T2 signal white matter changes involving both cerebral hemispheres and periventricular regions, which is suspected to represent chronic small vessel ischemic disease and leukoaraiosis. There is brain parenchymal volume loss which appears appropriate for patient's age. There is no hydrocephalus. The [place] vascular structures show no gross abnormality as visualized. The pituitary gland, sella, and suprasellar regions are unremarkable as visualized. The extracranial soft tissue, skull, and orbits show no significant abnormality. Postop changes to both globes are noted, which may be related to cataract surgery/lens implants. There is mild mucosal thickening involving the ethmoid sinus. There is minimal fluid in the right mastoid air cells. IMPRESSION: 1: There is a small area of acute infarct involving the high posterior right frontal lobe region with small amount of high T2 signal. There is no associated IV contrast enhancement. 2: The remainder of the brain parenchyma shows no other acute abnormality. 3: There is a small amount of confluent high T2 signal involving the right parietal lobe, which correlates to the area on the prior head CT. This may represent asymmetric chronic ischemic changes. There is no abnormal enhancement in this region. 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 5: There is a small area of focal remote microhemorrhage involving the right cerebellum. Dictated by: Dictated on workstation # [id number]
[2022-01-24 16:39] LABS: POTASSIUM 3.9 MMOL/L (3.6-5.0)
[2022-01-24 16:40] LABS: CALCIUM 8.7 MG/DL (8.5-10.1)
[2022-01-24 16:44] LABS: CREATININE SERUM 0.81 MG/DL (0.60-1.30)
[2022-01-24 20:35] LABS: CALCIUM 8.5 MG/DL (8.5-10.1); CREATININE SERUM 0.76 MG/DL (0.60-1.30); POTASSIUM 3.4 MMOL/L (3.6-5.0)
[2022-01-24] MEDS: MONTELUKAST 10 MG (SINGULAIR) TAB PO SCH (20:39)
[2022-01-24] MEDS: ENOXAPARIN 40 MG/0.4 ML (LOVENOX) SYR SC SCH (20:39)
[2022-01-24] MEDS: DONEPEZIL 10 MG (ARICEPT) TAB PO SCH (20:39)
[2022-01-24] MEDS: FAMOTIDINE 20 MG (PEPCID) TABLET PO SCH (20:39)
[2022-01-24] MEDS: OMEGA 3 (FISH OIL) 1000 MG CAP PO SCH (20:39)
[2022-01-24] MEDS ORDERED: PRESERVISION AREDS SOFTGEL (BAUSH & LOMB) PO SCH (21:00)
[2022-01-25 00:49] LABS: POTASSIUM 4.3 MMOL/L (3.6-5.0)
[2022-01-25 00:50] LABS: CALCIUM 8.5 MG/DL (8.5-10.1)
[2022-01-25 00:55] LABS: CREATININE SERUM 0.72 MG/DL (0.60-1.30)
[2022-01-25] MEDS: KCL 20 MEQ TAB (K-DUR) PO SCH (01:46)
[2022-01-25] MEDS: POTASSIUM CL 10MEQ/50ML IVPB 50 ML IV SCH (01:46)
[2022-01-25] MEDS: MAGNESIUM 1 GM/100 ML IVPB 100 ML IV SCH ×2 (01:46→08:08)
[2022-01-25 04:57] LABS: BASOPHILS % (AUTO) 1 % (0-10); EOSINOPHILS # (AUTO) 0.1 10^3/uL (0.0-0.3); EOSINOPHILS % (AUTO) 1 % (0-10); HEMATOCRIT 34 % (40-54); HEMOGLOBIN 11.7 g/dL (13.3-17.7); LYMPHOCYTES # (AUTO) 0.8 10^3/uL (1.0-4.0); LYMPHOCYTES % (AUTO) 13 % (12-44); MEAN CORPUSCULAR HEMOGLOBIN 27 pg (25-34); MEAN CORPUSCULAR HGB CONC 35 g/dL (32-36); MEAN CORPUSCULAR VOLUME 78 fL (80-99); MEAN PLATELET VOLUME 8.9 fL (9.0-12.2); MONOCYTES # (AUTO) 0.4 10^3/uL (0.0-1.0); MONOCYTES % (AUTO) 7 % (0-12); NEUTROPHILS # (AUTO) 4.6 10^3/uL (1.8-7.8); NEUTROPHILS % (AUTO) 77 % (42-75); PLATELET COUNT 379 10^3/uL (130-400); WHITE BLOOD COUNT 5.9 10^3/uL (4.3-11.0)
[2022-01-25 05:03] LABS: ALBUMIN 3.7 GM/DL (3.2-4.5); POTASSIUM 4.1 MMOL/L (3.6-5.0)
[2022-01-25 05:05] LABS: CALCIUM 8.8 MG/DL (8.5-10.1)
[2022-01-25 05:06] LABS: TOTAL PROTEIN 6.1 GM/DL (6.4-8.2)
[2022-01-25 05:09] LABS: PHOSPHORUS 2.4 MG/DL (2.3-4.7)
[2022-01-25 05:10] LABS: CREATININE SERUM 0.76 MG/DL (0.60-1.30)
[2022-01-25 05:13] LABS: MAGNESIUM 1.5 MG/DL (1.6-2.4)
[2022-01-25] MEDS: VENlafaxine XR 75 MG (EFFEXOR XR) CAP PO SCH (06:18)
[2022-01-25 06:37] LABS: TRIGLYCERIDES 78 MG/DL (<150); VLDL CHOLESTEROL 16 MG/DL (5-40)
[2022-01-25 06:41] LABS: CHOLESTEROL 157 MG/DL (< 200)
[2022-01-25 06:42] LABS: HDL CHOLESTEROL 33 MG/DL (40-60)
[2022-01-25] MEDS: NS IV 1000 ML 1,000 ML IV SCH (06:47)
[2022-01-25] MEDS: DOCUSATE SODIUM 100 MG (COLACE) CAP PO SCH ×2 (08:07→19:58)
[2022-01-25] MEDS: ASPIRIN 81 MG CHEW (CHILDREN'S ASA) PO SCH (08:07)
[2022-01-25] MEDS: OMEGA 3 (FISH OIL) 1000 MG CAP PO SCH ×2 (08:07→20:27)
[2022-01-25] MEDS: PANTOPRAZOLE 20 MG TABLET (PROTONIX) PO SCH (08:07)
[2022-01-25] MEDS: SENNOSIDES 8.6 MG (SENOKOT) TAB PO SCH (08:07)
[2022-01-25] MEDS: FAMOTIDINE 20 MG (PEPCID) TABLET PO SCH ×2 (08:07→20:27)
--- NOTE | 2022-01-25 08:21 | Diagnostic Imaging Report ---
PROCEDURE: US carotid duplex, bilateral. TECHNIQUE: Multiple real-time grayscale images were obtained over the carotid arteries in various projections, bilaterally. Additional spectral analysis and color Doppler duplex images were also obtained. INDICATION: CVA Parameters based on the consensus panel Majano-Scale and Doppler ultrasound criteria published September 2003, Radiology, Volume 229. DOPPLER (peak systolic velocity M/S Right Left CCA .68 .80 ICA Proximal .52 .41 ICA Mid .37 .52 ICA Distal .37 .78 RATIO .77 .98 ECA .91 .49 VERT .52 .49 Mild plaque is seen within the carotid bulbs and bifurcations extending into the internal carotid arteries. Waveforms are normal. Normal antegrade flow within the vertebral arteries. IMPRESSION: Less than 50% stenosis of the bilateral internal carotid arteries by velocity and ratio criteria. Dictated by: Dictated on workstation # [id number]
--- NOTE | 2022-01-25 08:46 | Occupational Ther Daily Note ---
OT Current Status-Daily Note Subjective Pt denies pain, agreeable to treatment. Appearance Pt left sitting in recliner, all needs within reach at OT departure. Mental Status/Objective Attachments: IV, Telemetry ADL-Treatment Therapy Code Descriptions/Definitions Functional [place] Measure: 0=Not Assessed/NA 4=Minimal Assistance 1=Total Assistance 5=Supervision or Setup 2=Maximal Assistance 6=Modified [place] 3=Moderate Assistance 7=Complete IndependenceSCALE: Activities may be completed with or without assistive devices. 3-Tqichwksiu-qzynyfv completes the activity by him/herself with no assistance from a helper. 5-Set-up or Clean-up Assistance-helper sets up or cleans up; patient completes activity. [place] assists only prior to or following the activity. 4-Supervision or Touching Assistance-helper provides verbal cues and/or touching/steadying and/or contact guard assistance as patient completes activity. Assistance may be provided throughout the activity or intermittently. 3-Partial/Moderate Assistance-helper does LESS THAN HALF the effort. [place] lifts, holds or supports trunk or limbs, but provides less than half the effort. 2-Substantial/Maximal Assistance-helper does MORE THAN HALF the effort. [place] lifts or holds trunk or limbs and provides more than half the effort. 5-Aklgnzozl-riwuqe does ALL the effort. Patient does none of the effort to complete the activity. Or, the assistance of 2 or more helpers is required for the patient to complete the activity. If activity was not attempted, code reason: 7-Patient Refused. 9-Not Applicable-not attempted and the patient did not perform the activity before the current illness, exacerbation or injury. 10-Not Attempted due to Environmental Limitations-(lack of equipment, weather restraints, etc.). 88-Not Attempted due to Medical Conditions or Safety Concerns. Eating (QC): 6 Toileting Hygiene (QC): 4 Toilet Transfer (QC): 4 At OT arrival, Pt is sitting EOB eating breakfast. He was Agreeable to transfer to chair to finish meal. Sit<>stand: SBA. Pt ambulated ~8 feet to recliner with walker and close SBA-CGA for safety. Pt exhibits very slow movements but no unsteadiness observed this date. Once reaching chair, he requests to use urinal. He was able to lower pants with CGA and alternating one hand on walker. He requested to sit when voiding. No assistance needed for positioning/placement of urinal. Pt then able to manage pants back up to waist again with CGA. Education OT Patient Education: Correct positioning, Modified ADL techniques, Progress toward Goal/Update tx plan, Purpose of tx/functional activities, Transfer techniques Teaching Recipient: Patient Teaching Methods: Discussion Response to Teaching: Verbalize Understanding, Return Demonstration, Reinforcement Needed OT Shelter Goals Treating Engineer Helper Goals 1=Demonstrate adherence to instructed precautions during ADL tasks. 2=Patient will verbalize/demonstrate understanding of assistive devices/modifications for ADL. 3=Patient will improve strength/tolerance for activity to enable patient to perform ADL's. OT Education/Plan Problem List/Assessment Assessment: Decreased Activ Tolerance, Decreased UE Strength, Impaired Funct Balance, Impaired I ADL's, Impaired Self-Care Skills Discharge Recommendations Plan/Recommendations: Continue POC Treatment Plan/Plan of Care Treatment,Training & Education: Yes Patient would benefit from OT for education, treatment and training to promote independence in ADL's, mobility, safety and/or upper extremity function for ADL's. Plan of Care: ADL Retraining, Functional Mobility, Group Exercise/Act as Ind, UE Funct Exercise/Act Treatment Duration: Feb 03, 2022 Frequency: 3 times per week (3-5x/week) Estimated Hrs Per Day: .25 hour per day Agreement: Yes Rehab Potential: Fair Time/GCodes Start Time: 08:11 Stop Time: 08:25 Total Time Billed (hr/min): 14 Billed Treatment Time 1 visit ADL Re Tripathi OT Jan 25, 2022 08:46
[2022-01-25] MEDS ORDERED: OMEPRAZOLE 20 MG (PriLOSEC) CAP NON-FORMULARY PO SCH (09:00)
[2022-01-25] MEDS ORDERED: NON-FORMULARY MEDICATION 1 EA EA (Venlafaxine HCl (Venlafaxine HCl ER) 150 MG) PO SCH (09:00)
[2022-01-25] MEDS ORDERED: ERGOCALCIFEROL 50 MCG PO SCH (09:00)
--- NOTE | 2022-01-25 09:18 | Consultation-Cardiology ---
HPI-Cardiology Cardiology Consultation: Date of Consultation 01/25/2022 Date of Admission 01/23/2022 Attending Physician Itzel Kelly DO Admitting Physician Bruno Richardson MD Consulting Physician MOLLY VELAZQUEZ JR, MD HPI: Time Seen by a Provider: 09:17 Chief Complaint: Acute cerebrovascular accident I had the pleasure of seeing Cj in the intensive care unit at [facility] in [place], [place] this morning. He presented to the emergency room due to severe nausea and vomiting. He was actually at [facility] doing physical rehab after he fell and broke his hip a couple of weeks ago. During his evaluation in the emergency room, he was found to have altered mental status and severe hyponatremia. A head CT was performed that showed a questionable right frontal lesion. He then underwent an MRI of the brain that showed an acute right frontal stroke. A cardiology consultation was then requested. He denies any focal neurologic symptoms. He denies chest discomfort. He does have some dyspnea on exertion while doing physical therapy but this has improved since he started. He denies paroxysmal nocturnal dyspnea, orthopnea, palpitations, lightheadedness, syncope, or ankle edema. Certain portions of this document may have been dictated utilizing voice recognition technology. Inherent to this technology, typographical and grammatical errors may exist. As much as I am diligent to identify and correct these mistakes, some errors may remain in the document. Review of Systems-Cardiology Review of Systems Other comments Review of 10 organ systems is as per the history of present illness, otherwise negative. JRC-Lakswz-Mftxxb Hx Patient Social History Marrital Status: Employed/Student: retired Smoking Status: Former Smoker Have you traveled recently?: No Alcohol Use?: No Pt feels they are or have been: No Tobacco type used: Cigarettes Past Medical History PMH As described under Assessment. Family Medical History Family Medical History: The patient does not know of any family history of premature coronary artery disease in first-degree relatives. Allergies and Home Medications Allergies Coded Allergies: Penicillins (Verified Allergy, Unknown, 01/23/22) bee venom protein (honey bee) (Verified Allergy, Unknown, 01/23/22) codeine (Verified Allergy, Unknown, 01/23/22) Patient Home Medication List Home Medication List Reviewed: Yes Acetaminophen (Tylenol Extra Strength) 500 Mg Tablet, 500-1,000 MG PO Q6H, (Reported) Entered as Reported by: GENA BEJARANO on 01/24/221127 Last Action: Continued Aspirin (Aspirin) 81 Mg Tab.chew, 81 MG PO DAILY, (Reported) Entered as Reported by: GENA BEJARANO on 01/24/221127 Last Action: Continued Donepezil HCl (Donepezil HCl) 10 Mg Tablet, 10 MG PO HS, (Reported) Entered as Reported by: GENA BEJARANO on 01/24/221127 Last Action: Continued Ergocalciferol (Vitamin D2) (Vitamin D2) 50 Mcg Capsule, 50 MCG PO DAILY, (Reported) Entered as Reported by: GENA BEJARANO on 01/24/221127 Last Action: Converted Famotidine (Pepcid) 20 Mg Tablet, 20 MG PO BID, (Reported) Entered as Reported by: GENA BEJARANO on 01/24/221127 Last Action: Continued Losartan/Hydrochlorothiazide (Losartan-Hctz 100-25 mg Tab) 1 Each Tablet, 1 EACH PO BID, (Reported) Entered as Reported by: GENA BEJARANO on 01/24/221127 Last Action: Held Montelukast Sodium (Montelukast Sodium) 10 Mg Tablet, 10 MG PO HS, (Reported) Entered as Reported by: GENA BEJARANO on 01/24/221127 Last Action: Continued Arden-3 Fatty Acids/Fish Oil (Arden 3 1,000 mg Softgel) 1 Each Capsule, 1 EACH PO Q12H, (Reported) Entered as Reported by: GENA BEJARANO on 01/24/221127 Last Action: Converted Omeprazole (Omeprazole) 20 Mg Capsule.dr, 20 MG PO DAILY, (Reported) Entered as Reported by: GENA BEJARANO on 01/24/221127 Last Action: Continued Ondansetron (Ondansetron Odt) 8 Mg Tab.rapdis, 8 MG PO Q6H PRN for NAUSEA/VOMITING-1ST LINE, (Reported) Entered as Reported by: GENA BEJARANO on 01/24/221127 Last Action: Converted Venlafaxine HCl (Venlafaxine HCl ER) 150 Mg Cap.er.24h, 150 MG PO DAILY, (Reported) Entered as Reported by: GENA BEJARANO on 3/15/22 1128 Last Action: Converted Vit A/C/E/Zinc/Co (Preservision Areds Softgel) 1 Cap Capsule, 1 CAP PO BID, (Reported) Entered as Reported by: GENA BEJARANO on 01/24/22 1128 Last Action: Continued Exam Vital Signs Vital Signs Date Time Temp Pulse Resp B/P (MAP) Pulse Ox O2 Delivery O2 Flow Rate FiO2 01/25/22 15:46 36.1 78 14 144/85 92 Room Air 01/23/22 21:52 21 Physical Exam General: Alert. No acute distress. Well nourished and appears stated age. Eye: Extraocular movements are intact. Conjunctivae are clear. There are no xanthelasma. HENT: Normocephalic. Atraumatic. Carotid pulsations 2/2 without bruits. Neck: Jugular venous pressure does not appear elevated. No thyromegaly appreciated. Respiratory: Lungs have crackles at the right base. Respirations are non- labored. Breath sounds are equal. Symmetrical chest wall expansion. Cardiovascular: Normal rate. Regular rhythm. No murmur. No gallop. Point of maximal impulse is not appear displaced. Good pulses equal in all extremities. No edema. Gastrointestinal: Soft. Normal bowel sounds. Skin: Skin turgor is normal. There is no pallor. Musculoskeletal: No kyphosis or scoliosis appreciated. Neurologic: Alert and oriented to person, place, time. Cranial nerves 3-12 appear grossly intact. The patient has good motor tone strength in the upper and lower extremities bilaterally. Psychiatric: Cooperative. Appropriate mood & affect. Labs Laboratory Tests Test 01/24/22 20:00 01/25/22 00:25 01/25/22 04:25 01/25/22 04:45 Range/Units Sodium Level 117 *L 117 *L 120 *L 135-145 MMOL/L Potassium Level 3.4 L 4.3 4.1 3.6-5.0 MMOL/L Chloride Level 85 L 87 L 90 L 98-107 MMOL/L Carbon Dioxide Level 22 18 L 20 L 21-32 MMOL/L Anion Gap 10 12 10 5-14 MMOL/L Blood Urea Nitrogen 8 7 6 L 7-18 MG/DL Creatinine 0.76 0.72 0.76 0.60-1.30 MG/DL Estimat Glomerular Filtration Rate 90 91 90 BUN/Creatinine Ratio 11 10 8 Glucose Level 91 82 85 70-105 MG/DL Calcium Level 8.5 8.5 8.8 8.5-10.1 MG/DL Triglycerides Level 78 <150 MG/DL Cholesterol Level 157 < 200 MG/DL LDL Cholesterol Direct 121 1-129 MG/DL VLDL Cholesterol 16 5-40 MG/DL HDL Cholesterol 33 L 40-60 MG/DL White Blood Count 5.9 4.3-11.0 10^3/uL Red Blood Count 4.35 4.30-5.52 10^6/uL Hemoglobin 11.7 L 13.3-17.7 g/dL Hematocrit 34 L 40-54 % Mean Corpuscular Volume 78 L 80-99 fL Mean Corpuscular Hemoglobin 27 25-34 pg Mean Corpuscular Hemoglobin Concent 35 32-36 g/dL Red Cell Distribution Width 13.9 10.0-14.5 % Platelet Count 379 130-400 10^3/uL Mean Platelet Volume 8.9 L 9.0-12.2 fL Immature Granulocyte % (Auto) 1 % Neutrophils (%) (Auto) 77 H 42-75 % Lymphocytes (%) (Auto) 13 12-44 % Monocytes (%) (Auto) 7 0-12 % Eosinophils (%) (Auto) 1 0-10 % Basophils (%) (Auto) 1 0-10 % Neutrophils # (Auto) 4.6 1.8-7.8 10^3/uL Lymphocytes # (Auto) 0.8 L 1.0-4.0 10^3/uL Monocytes # (Auto) 0.4 0.0-1.0 10^3/uL Eosinophils # (Auto) 0.1 0.0-0.3 10^3/uL Basophils # (Auto) 0.0 0.0-0.1 10^3/uL Immature Granulocyte # (Auto) 0.0 0.0-0.1 10^3/uL Corrected Calcium 9.0 8.5-10.1 MG/DL Phosphorus Level 2.4 2.3-4.7 MG/DL Magnesium Level 1.5 L 1.6-2.4 MG/DL Total Bilirubin 1.0 0.1-1.0 MG/DL Aspartate Amino Transf (AST/SGOT) 27 5-34 U/L Alanine Aminotransferase (ALT/SGPT) 23 0-55 U/L Alkaline Phosphatase 116 40-136 U/L Total Protein 6.1 L 6.4-8.2 GM/DL Albumin 3.7 3.2-4.5 GM/DL Radiology ECHOCARDIOGRAM (01/25/2022): 1. This is a technically difficult study due to poor image quality in the apical views. 2. Left ventricle: The cavity size is normal. There is severe concentric hypertrophy. Systolic function is normal. The estimated ejection fraction is 60- 65%. There are no regional wall motion abnormalities identified on this technically difficult study. Doppler parameters are consistent with abnormal left ventricular relaxation (grade 1 diastolic dysfunction). 3. Left atrium: The left atrium is mildly dilated with a volume index ranging from 27-48 mL/m. 4. Aortic valve: There is mild aortic valve sclerosis. There is trivial regurgitation. 5. Pulmonary arteries: The estimated pulmonary artery systolic pressure is 32 mmHg assuming a right atrial pressure of 5 mmHg. ECG Impression ECG Comment Sinus rhythm with first-degree AV block, otherwise unremarkable tracing. Diagnosis/Problems Diagnosis/Problems (1) Acute cerebrovascular accident Assessment & Plan: Exact etiology unclear. He has mild bilateral carotid atherosclerosis but no significant stenosis. This raises a concern for a cardiac embolic event. His echocardiogram did not show any obvious structural heart disease to explain cardiac source of embolism. This raises a concern for paroxysmal atrial fibrillation. I recommend he continue on aspirin, clopidogrel and high-dose statin medication. I will plan on an implantable loop recorder insertion tomorrow for prolonged surveillance for atrial fibrillation. There is no indication to start him on oral anticoagulation at this time. He should just continue with dual antiplatelet therapy. (2) Atherosclerosis of both carotid arteries Assessment & Plan: As above, he had a carotid ultrasound earlier today showing mild bilateral disease but no obstruction. He should continue on aspirin and statin medication. (3) Mixed hyperlipidemia Assessment & Plan: Continue statin medication. He should be on intensive dose statin for at least the next month due to the acute stroke. (4) Primary hypertension Assessment & Plan: Blood pressures are intermittently elevated although he has not this acute stroke so we want to avoid excessive drops in his blood pressure. We may want to consider restarting his losartan in the next 24-48 hours. Given his severe hyponatremia at the time of admission, we may want to avoid restart ing hydrochlorothiazide. (5) Short-term memory loss Assessment & Plan: He tells me his primary provider started him on donezepil well over 5 years ago but he is completely oriented and does not appear to have any significant memory loss. I would question the diagnosis of dementia. MOLLY VELAZQUEZ JR, MD Jan 25, 2022 09:18
--- NOTE | 2022-01-25 09:54 | Physical Therapy Daily Note ---
PT Daily Note-Current Subjective Pt. in bed, states he just found out that he has had a little stroke, "and they are hooking me up to a special kind of heart monitor this afternoon" Also states it feels so good to get up Pain Location: No Pain Reported Mental Status Patient Orientation: Normal For Age Attachments: [place] Catheter, Other-See Comments (,BP,O2 sat, telemetry), IV Transfers SCALE: Activities may be completed with or without assistive devices. 8-Ukxosggwtr-fgyccmn completes the activity by him/herself with no assistance from a helper. 5-Set-up or Clean-up Assistance-helper sets up or cleans up; patient completes activity. [place] assists only prior to or following the activity. 4-Supervision or Touching Assistance-helper provides verbal cues and/or touching/steadying and/or contact guard assistance as patient completes activi ty. Assistance may be provided throughout the activity or intermittently. 3-Partial/Moderate Assistance-helper does LESS THAN HALF the effort. [place] lifts, holds or supports trunk or limbs, but provides less than half the effort. 2-Substantial/Maximal Assistance-helper does MORE THAN HALF the effort. [place] lifts or holds trunk or limbs and provides more than half the effort. 8-Ddqutrzdu-ncmrjs does ALL the effort. Patient does none of the effort to complete the activity. Or, the assistance of 2 or more helpers is required for the patient to complete the activity. If activity was not attempted, code reason: 7-Patient Refused. 9-Not Applicable-not attempted and the patient did not perform the activity before the current illness, exacerbation or injury. 10-Not Attempted due to Environmental Limitations-(lack of equipment, weather restraints, etc.). 88-Not Attempted due to Medical Conditions or Safety Concerns. Roll Left & Right (QC): 4 Lying to Sitting/Side of Bed(Q: 4 Sit to Stand (QC): 4 Chair/Drz-tr-Egfsm Xfer(QC): 4 instruction in use of FWW for sit to stand and proper hand placement on bed or chair arms etc Weight Bearing Right Lower Extremity: Right Weight Bearing/Tolerated Left Lower Extremity: Left Full Weight Bearing Gait Training Does the Patient Walk?: Yes Walk 10 feet (QC): 4 Walk 50 ft with 2 Turns(QC): 4 Gait Persons Needed: 1 Gait Assistive Device: FWW 60ft, 10 ft CGA and assist all attachments, instruction in proper use of AD Exercises Seated Therapy Exercises: Ankle pumps, Sit to stand, Long arc quads Seated Reps: 10 Treatments TRFs, gait, up in recliner with all attachments insitu, call trivedi at hand Assessment Current Status: Good Progress PT Usp Goals Exploitation Analyst Goals PT Exploitation Analyst Goals Time Frame: Feb 04, 2022 Roll Left & Right (QC): 4 Sit to Lying (QC): 4 Lying-Sitting on Side/Bed(QC): 4 Sit to Stand (QC): 4 Chair/Qqq-sv-Dfrlq Xfer(QC): 4 Toilet Transfer (QC): 4 Walk 10 feet (QC): 4 Walk 50ft with 2 Turns (QC): 4 Walk 150 ft (QC): 4 PT Plan Treatment/Plan Treatment Plan: Continue Plan of Care Treatment Plan: Bed Mobility, Education, Functional Activity Jamie, Functional Strength, Gait, Safety, Therapeutic Exercise, Transfers Treatment Duration: Feb 04, 2022 Frequency: 6 times per week Estimated Hrs Per Day: .5 hour per day Patient and/or Family Agrees t: Yes Safety Risks/Education Patient Education: Gait Training, Transfer Techniques, Correct Positioning, Safety Issues Teaching Recipient: Patient Teaching Methods: Demonstration, Discussion Response to Teaching: Verbalize Understanding, Return Demonstration, Reinforcement Needed Time/GCodes Time In: 919 Time Out: 944 Total Billed Treatment Time: 25 Total Billed Treatment 1,FA25m SIA HUGHES PTA Jan 25, 2022 09:54
[2022-01-25] MEDS: LACTULOSE SYRUP 10GM/15ML (ENULOSE) 30ML UDC PO SCH ×2 (10:12→19:58)
--- NOTE | 2022-01-25 10:12 | Tele-ICU Progress Note ---
Subjective Date Seen by a Provider: Jan 25, 2022 Time Seen by a Provider: 10:12 Sepsis Event Evaluation Height, Weight, BMI Height: '" Weight: lbs. oz. kg; 25.62 BMI Method: Exam Exam Patient acknowledged, consented, and participated in this virtual visit which was conducted using real time audio/video Vital Signs Date Time Temp Pulse Resp B/P (MAP) Pulse Ox O2 Delivery O2 Flow Rate FiO2 01/25/22 09:00 90 14 Room Air 01/25/22 08:05 96 Room Air 01/25/22 08:00 82 16 142/88 Room Air 01/25/22 07:25 36.8 01/25/22 07:00 73 10 153/80 Room Air 01/25/22 06:42 70 01/25/22 06:00 69 9 152/101 Room Air 01/25/22 05:00 85 132/67 90 Room Air 01/25/22 04:00 68 12 151/82 91 NIV CPAP 01/25/22 04:00 96 Room Air 01/25/22 03:00 87 15 172/84 92 NIV CPAP 01/25/22 02:00 70 11 131/91 90 NIV CPAP 01/25/22 01:00 78 01/25/22 01:00 78 16 135/86 88 NIV CPAP 01/25/22 00:00 64 12 146/94 97 NIV CPAP 01/24/22 23:59 95 Room Air 01/24/22 23:17 67 9 134/87 91 NIV CPAP 01/24/22 22:00 72 18 110/84 99 Room Air 01/24/22 21:00 74 11 123/75 97 Room Air 01/24/22 20:00 81 20 137/72 96 Room Air 01/24/22 20:00 96 Room Air 01/24/22 19:40 36.6 83 16 126/77 94 Room Air 01/24/22 19:00 87 01/24/22 18:00 88 14 152/84 91 Room Air 01/24/22 17:00 80 8 129/75 93 Room Air 01/24/22 16:00 98 Room Air 01/24/22 16:00 72 15 133/74 96 Room Air 01/24/22 15:50 36.4 01/24/22 15:00 79 22 125/78 98 Room Air 01/24/22 14:00 83 13 Room Air 01/24/22 13:00 75 30 128/77 94 Room Air 01/24/22 13:00 86 01/24/22 12:00 74 14 142/85 98 Room Air 01/24/22 12:00 36.4 01/24/22 11:42 98 Room Air 01/24/22 11:00 73 12 147/89 Room Air I & O 01/25/22 07:00 Intake Total 3990 ml Output Total 3775 ml Balance 215 ml Height & Weight Height: '" Weight: lbs. oz. kg; 25.62 BMI Method: General Appearance: No Apparent Distress, WD/WN, Chronically ill, Other (frail) HEENT: PERRL/EOMI, Normal ENT Inspection, Pharynx Normal Neck: Full Range of Motion, Normal Inspection, Non Tender, Supple, Carotid Bruit Respiratory: Chest Non Tender, Lungs Clear, Normal Breath Sounds, No Accessory Muscle Use, No Respiratory Distress Cardiovascular: Regular Rate, Rhythm, No Edema, No Gallop, No JVD, No Murmur, Normal Peripheral Pulses Capillary Refill: Less Than 3 Seconds Peripheral Pulses: 1+ Dorsalis Pedis (R), 1+ Left Dors-Pedis (L) (See free text.) Gastrointestinal: normal bowel sounds, soft, tenderness (Right abdomen tender. Old healed incisions to the midline abdomen and right lower abdomen from what he states was appendectomy and cholecystectomy.) Extremity: Normal Capillary Refill, Normal Inspection, Normal Range of Motion, Non Tender, No Calf Tenderness, No Pedal Edema Neurologic/Psychiatric: Alert, Oriented x3, No Motor/Sensory Deficits, Normal Mood/Affect Skin: Normal Color, Warm/Dry Lymphatic: No Adenopathy Results Lab Laboratory Tests 01/23/22 17:25 01/23/22 21:10 01/24/22 01:09 01/24/22 04:45 01/24/22 08:41 01/24/22 12:15 01/24/22 16:15 01/24/22 20:00 01/25/22 00:25 01/25/22 04:45 Assessment/Plan Assessment/Plan (Tele-ICU Physician , Progress Note ) Available chart/ vitals / labs / Images reviewed Video assessment done using teleICU camera, rest of exam as per RN Discussed with RN , EXAM PER RN Events overnight : Afebrile FiO2 - ra I/O = pos Drips: ns 100 Pressors: , hemodynamically stable Consultants: Hospital course: 01/23: 81 y/o male presented to the ED from Rehab facility and admitted with hyponatremia, RAND and N/V A/P Hyponatremia . 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 Discussed with RN to reach out if any questions or concerns A total of 31 minutes of critical care time was devoted to this patient today, required to treat and/or prevent further deterioration of critical care condition ( as above) . KRISTEN HAIR MD Jan 25, 2022 10:12
[2022-01-25] MEDS: SENNA W/DOCUSATE (SENOKOT S) TABLET PO SCH ×2 (10:13→19:59)
[2022-01-25] MEDS: polyethylene glycoL POWDER 17 GM (MIRALAX) PACK PO SCH ×2 (10:13→19:59)
--- NOTE | 2022-01-25 11:06 | Progress Note ---
MIGUEL JUNIOR 01/25/22 1106: Subjective Date Seen by a Provider: Jan 25, 2022 Time Seen by a Provider: 07:50 Subjective/Events-last exam Chief complaint: Hyponatremia History of present illness: This is an 81-year-old white male clinic patient of physician in [place] who remains at [facility] to recover from right hip fracture who presents to the ER with nausea and vomiting and abdominal pain found to have hyponatremia of 108. He was placed on normal saline and eICU has been monitoring BMP checks every 4 hours. MRI will be obtained to evaluate a brain mass. Subjective/Events-last exam Patient reported that he is doing well. Not having abdominal pain, nausea, or vomiting. He is continuing to be active and walk with PT. Reports that he peed a lot last night. Hyponatremia is continuing to resolve, Na at 120 today. Patient records were received showing medications he receives at [facility]. Losartan/Hydrochlorothiazide was recorded to have been started within the past week and Hydrochlorothiazide is likely the cause of the patient's severe hyponatremia. Patient needs to be listed as having an adverse reaction to Hydrochlorothiazide. MRI completed on 01/24 shows a small area of acute infarct. Review of Systems General: No Chills, No Night Sweats, No Fatigue HEENT: No Head Aches, No Visual Changes Pulmonary: No Dyspnea; Cough Cardiovascular: No: Chest Pain, Palpitations Gastrointestinal: Diarrhea; No: Nausea, Vomiting Genitourinary: No Dysuria, No Frequency, No Incontinence Musculoskeletal: No: back pain Neurological: No: Numbness, Change in speech, Confusion Objective Exam Last Set of Vital Signs Vital Signs Date Time Temp Pulse Resp B/P (MAP) Pulse Ox O2 Delivery O2 Flow Rate FiO2 01/25/22 09:00 90 14 Room Air 01/25/22 08:05 96 01/25/22 07:25 36.8 01/23/22 21:52 21 Capillary Refill : Less Than 3 Seconds I&O Intake and Output 01/25/22 00:00 Intake Total 4040 ml Output Total 3825 ml Balance 215 ml Intake Oral 2340 ml IV Total 1700 ml Output Urine Total 3825 ml # Voids 2 # Bowel Movements 2 General: Alert, Oriented X3 Lungs: Clear to Auscultation, Normal Air Movement Heart: Regular Rate, No Murmurs Abdomen: Normal Bowel Sounds, No Tenderness Psych/Mental Status: Mental Status NL, Mood NL Results Lab Laboratory Tests 01/24/22 12:15: Sodium Level 113*L, Potassium Level 4.1, Chloride Level 82L, Carbon Dioxide Level 20L, Anion Gap 11, Blood Urea Nitrogen 8, Creatinine 0.77, Estimat Glomerular Filtration Rate 89, BUN/Creatinine Ratio 10, Glucose Level 91, Calcium Level 8.7 01/24/22 16:15: Sodium Level 116*L, Potassium Level 3.9, Chloride Level 84L, Carbon Dioxide Level 21, Anion Gap 11, Blood Urea Nitrogen 8, Creatinine 0.81, Estimat Glomerular Filtration Rate 88, BUN/Creatinine Ratio 10, Glucose Level 83, Calcium Level 8.7 01/24/22 20:00: Sodium Level 117*L, Potassium Level 3.4L, Chloride Level 85L, Carbon Dioxide Level 22, Anion Gap 10, Blood Urea Nitrogen 8, Creatinine 0.76, Estimat Glomer ular Filtration Rate 90, BUN/Creatinine Ratio 11, Glucose Level 91, Calcium Level 8.5 01/25/22 00:25: Sodium Level 117*L, Potassium Level 4.3, Chloride Level 87L, Carbon Dioxide Level 18L, Anion Gap 12, Blood Urea Nitrogen 7, Creatinine 0.72, Estimat Glomerular Filtration Rate 91, BUN/Creatinine Ratio 10, Glucose Level 82, Calcium Level 8.5 01/25/22 04:25: Triglycerides Level 78, Cholesterol Level 157, LDL Cholesterol Direct 121, VLDL Cholesterol 16, HDL Cholesterol 33L 01/25/22 04:45: White Blood Count 5.9, Red Blood Count 4.35, Hemoglobin 11.7L, Hematocrit 34L, Mean Corpuscular Volume 78L, Mean Corpuscular Hemoglobin 27, Mean Corpuscular Hemoglobin Concent 35, Red Cell Distribution Width 13.9, Platelet Count 379, Mean Platelet Volume 8.9L, Immature Granulocyte % (Auto) 1, Neutrophils (%) (Auto) 77H, Lymphocytes (%) (Auto) 13, Monocytes (%) (Auto) 7, Eosinophils (%) (Auto) 1, Basophils (%) (Auto) 1, Neutrophils # (Auto) 4.6, Lymphocytes # (Auto) 0.8L, Monocytes # (Auto) 0.4, Eosinophils # (Auto) 0.1, Basophils # (Auto) 0.0, Immature Granulocyte # (Auto) 0.0, Sodium Level 120*L, Potassium Level 4.1, Chloride Level 90L, Carbon Dioxide Level 20L, Anion Gap 10, Blood Urea Nitrogen 6L, Creatinine 0.76, Estimat Glomerular Filtration Rate 90, BUN/Creatinine Ratio 8, Glucose Level 85, Calcium Level 8.8, Corrected Calcium 9.0, Phosphorus Level 2.4, Magnesium Level 1.5L, Total Bilirubin 1.0, Aspartate Amino Transf (AST/SGOT) 27, Alanine Aminotransferase (ALT/SGPT) 23, Alkaline Phosphatase 116, Total Protein 6.1L, Albumin 3.7 Microbiology 01/23/22 MRSA Screen - Final, Complete MRSA not isolated Assessment/Plan Assessment/Plan Assess & Plan/Chief Complaint Assessment: Hyponatremia due to Hydrochlorothiazide as an adverse event N/V CVA on MRI Weakness Hip fracture hx Dementia Plan: 01/24/2022: Fluid restriction NS BMP Cardiology consult Carotid usg Lipid 01/25/2022: Fluid restriction Stop Normal Saline due to excess urination and adequate oral intake of fluids Transition to 4th floor Clinical Quality Measures Admission Status Admission Dx Assessment: Emesis Hyponatremia Hypokalemia Hypochloremia Weakness Parenchymal Mass- Head CT on 01/23 Plan: 01/24/2022 Start with hypertonic saline to address hyponatremia, then to normal saline IVF Potassium Supplement Supportive Care Brain MRI ITZEL BOWLES DO 01/26/22 0600: Subjective Subjective/Events-last exam Patient doing a lot better Had an assisted fall later in the afternoon Dementia and poor judgment of position is noted Fluid restriction continues Transferring patient to fourth floor Review of Systems General: Fatigue, Malaise Musculoskeletal: leg pain Neurological: Confusion Objective Exam General: Alert, Oriented X3 Lungs: Clear to Auscultation Heart: Regular Rate Abdomen: Normal Bowel Sounds Psych/Mental Status: Mental Status NL Assessment/Plan Assessment/Plan Assess & Plan/Chief Complaint Transfer to fourth floor Loop recorder per cardiology Hep-Lock IV fluid Place hydrochlorothiazide as an allergy Supervisory-Addendum Brief Verification & Attestation Participated in pt care: history, MDM, physical Personally performed: exam, history, MDM, supervision of care Care discussed with: Medical Student Procedures: n/a Results interpretation: Verified all documentation Verification and Attestation of Medical Student E/M Service A medical student performed and documented this service in my presence. I reviewed and verified all information documented by the medical student and made modifications to such information, when appropriate. I personally performed the physical exam and medical decision making. Itzel Bowles, Jan 26, 2022,05:58 MIGUEL JUNIOR Jan 25, 2022 11:06 ITZEL BOWLES DO Jan 26, 2022 06:00
[2022-01-25] MEDS: MONTELUKAST 10 MG (SINGULAIR) TAB PO SCH (20:27)
[2022-01-25] MEDS: DONEPEZIL 10 MG (ARICEPT) TAB PO SCH (20:27)
[2022-01-25] MEDS: ENOXAPARIN 40 MG/0.4 ML (LOVENOX) SYR SC SCH (20:27)
[2022-01-26 05:06] LABS: BASOPHILS % (AUTO) 0 % (0-10); EOSINOPHILS # (AUTO) 0.1 10^3/uL (0.0-0.3); EOSINOPHILS % (AUTO) 2 % (0-10); HEMATOCRIT 32 % (40-54); HEMOGLOBIN 10.7 g/dL (13.3-17.7); LYMPHOCYTES # (AUTO) 0.9 10^3/uL (1.0-4.0); LYMPHOCYTES % (AUTO) 20 % (12-44); MEAN CORPUSCULAR HEMOGLOBIN 27 pg (25-34); MEAN CORPUSCULAR HGB CONC 34 g/dL (32-36); MEAN CORPUSCULAR VOLUME 79 fL (80-99); MEAN PLATELET VOLUME 9.4 fL (9.0-12.2); MONOCYTES # (AUTO) 0.5 10^3/uL (0.0-1.0); MONOCYTES % (AUTO) 10 % (0-12); NEUTROPHILS # (AUTO) 3.1 10^3/uL (1.8-7.8); NEUTROPHILS % (AUTO) 67 % (42-75); PLATELET COUNT 313 10^3/uL (130-400); WHITE BLOOD COUNT 4.6 10^3/uL (4.3-11.0)
[2022-01-26 05:28] LABS: ALBUMIN 3.4 GM/DL (3.2-4.5)
[2022-01-26 05:29] LABS: POTASSIUM 3.7 MMOL/L (3.6-5.0)
[2022-01-26 05:30] LABS: CALCIUM 8.8 MG/DL (8.5-10.1)
[2022-01-26 05:31] LABS: TOTAL PROTEIN 5.6 GM/DL (6.4-8.2)
[2022-01-26 05:33] LABS: BILIRUBIN,TOTAL 0.7 MG/DL (0.1-1.0)
[2022-01-26 05:35] LABS: CREATININE SERUM 0.75 MG/DL (0.60-1.30)
[2022-01-26 05:37] LABS: MAGNESIUM 1.6 MG/DL (1.6-2.4)
[2022-01-26] MEDS: BISACODYL 10 MG SUPP (DULCOLAX) PR SCH (07:39)
[2022-01-26] MEDS: LACTULOSE SYRUP 10GM/15ML (ENULOSE) 30ML UDC PO SCH ×2 (07:39→20:15)
[2022-01-26] MEDS: polyethylene glycoL POWDER 17 GM (MIRALAX) PACK PO SCH ×2 (07:39→20:15)
[2022-01-26] MEDS: DOCUSATE SODIUM 100 MG (COLACE) CAP PO SCH ×2 (07:39→20:14)
[2022-01-26] MEDS: SENNA W/DOCUSATE (SENOKOT S) TABLET PO SCH ×2 (07:39→20:14)
[2022-01-26] MEDS ORDERED: LIDOCAINE 2% 20 ML (XYLOCAINE) VIAL ONE (07:40)
[2022-01-26] MEDS: PANTOPRAZOLE 20 MG TABLET (PROTONIX) PO SCH (08:03)
[2022-01-26] MEDS: ASPIRIN 81 MG CHEW (CHILDREN'S ASA) PO SCH (08:03)
[2022-01-26] MEDS: VENlafaxine XR 75 MG (EFFEXOR XR) CAP PO SCH (08:03)
[2022-01-26] MEDS: OMEGA 3 (FISH OIL) 1000 MG CAP PO SCH ×2 (08:03→20:14)
[2022-01-26] MEDS: FAMOTIDINE 20 MG (PEPCID) TABLET PO SCH ×2 (08:03→20:14)
--- NOTE | 2022-01-26 09:25 | Cardiology Progress Note ---
Progress Note-Cardiology Events since last exam Date Seen by Provider: Jan 26, 2022 Time Seen by Provider: 09:21 Events since last exam I am following him due to acute cerebrovascular accident. He denies any kavitha rologic symptoms. Furthermore, when he presented to the hospital he was not having any focal neurologic symptoms. He denies chest pain, dyspnea, palpitations, syncope, or ankle edema. He wants to know when he can go back to [facility] for inpatient rehab which he was doing after he fell and slipped on the ice and broke his hip. Vitals Last set of Vitals Signs Vital Signs 01/23/22 01/26/22 01/26/22 01/26/22 21:52 07:59 08:00 08:06 Temp 37.4 Pulse 84 Resp 20 B/P (MAP) 141/91 Pulse Ox 96 O2 Delivery Room Air FiO2 21 Labs Labs Laboratory Tests 01/26/22 04:43 Exam Vital Signs Vital Signs Date Time Temp Pulse Resp B/P (MAP) Pulse Ox O2 Delivery O2 Flow Rate FiO2 01/26/22 08:06 96 Room Air 01/26/22 08:00 84 20 141/91 01/26/22 07:59 37.4 01/23/22 21:52 21 Physical Exam General: Alert. No acute distress. Eye: No xanthelasma. HENT: Normocephalic. Neck: Jugular venous pressure does not appear elevated. Respiratory: Lungs are clear to auscultation. Respirations are non-labored. Breath sounds are equal. Symmetrical chest wall expansion. Cardiovascular: Normal rate. Regular rhythm. No murmur. No gallop. No edema. Gastrointestinal: Soft. Normal bowel sounds. Skin: Warm. Dry. Neurologic: Alert and oriented to person, place, time. Cranial nerves 3-11 grossly intact. Psychiatric: Cooperative. Appropriate mood & affect. Labs Laboratory Tests Test 01/26/22 04:43 Range/Units White Blood Count 4.6 4.3-11.0 10^3/uL Red Blood Count 3.98 L 4.30-5.52 10^6/uL Hemoglobin 10.7 L 13.3-17.7 g/dL Hematocrit 32 L 40-54 % Mean Corpuscular Volume 79 L 80-99 fL Mean Corpuscular Hemoglobin 27 25-34 pg Mean Corpuscular Hemoglobin Concent 34 32-36 g/dL Red Cell Distribution Width 14.5 10.0-14.5 % Platelet Count 313 130-400 10^3/uL Mean Platelet Volume 9.4 9.0-12.2 fL Immature Granulocyte % (Auto) 0 % Neutrophils (%) (Auto) 67 42-75 % Lymphocytes (%) (Auto) 20 12-44 % Monocytes (%) (Auto) 10 0-12 % Eosinophils (%) (Auto) 2 0-10 % Basophils (%) (Auto) 0 0-10 % Neutrophils # (Auto) 3.1 1.8-7.8 10^3/uL Lymphocytes # (Auto) 0.9 L 1.0-4.0 10^3/uL Monocytes # (Auto) 0.5 0.0-1.0 10^3/uL Eosinophils # (Auto) 0.1 0.0-0.3 10^3/uL Basophils # (Auto) 0.0 0.0-0.1 10^3/uL Immature Granulocyte # (Auto) 0.0 0.0-0.1 10^3/uL Sodium Level 125 *L 135-145 MMOL/L Potassium Level 3.7 3.6-5.0 MMOL/L Chloride Level 96 L 98-107 MMOL/L Carbon Dioxide Level 18 L 21-32 MMOL/L Anion Gap 11 5-14 MMOL/L Blood Urea Nitrogen 9 7-18 MG/DL Creatinine 0.75 0.60-1.30 MG/DL Estimat Glomerular Filtration Rate 90 BUN/Creatinine Ratio 12 Glucose Level 91 70-105 MG/DL Calcium Level 8.8 8.5-10.1 MG/DL Corrected Calcium 9.3 8.5-10.1 MG/DL Magnesium Level 1.6 1.6-2.4 MG/DL Total Bilirubin 0.7 0.1-1.0 MG/DL Aspartate Amino Transf (AST/SGOT) 22 5-34 U/L Alanine Aminotransferase (ALT/SGPT) 22 0-55 U/L Alkaline Phosphatase 101 40-136 U/L Total Protein 5.6 L 6.4-8.2 GM/DL Albumin 3.4 3.2-4.5 GM/DL Diagnosis/Problems Diagnosis/Problems (1) Acute cerebrovascular accident Assessment & Plan: Exact etiology unclear. He has mild bilateral carotid atherosclerosis but no significant stenosis. This raises a concern for a cardiac embolic event. His echocardiogram did not show any obvious structural heart disease to explain cardiac source of embolism. This raises a concern for paroxysmal atrial fibrillation. I recommend he continue on aspirin, clopidogrel and high-dose statin medication. There is no indication to start him on oral anticoagulation at this time. He should just continue with dual antiplatelet therapy. I placed an implantable loop recorder this morning. He will need to come to my office in 1 week for a wound check. From a cardiac standpoint, the patient can be discharged back to inpatient rehab once his other noncardiac issues are improved. (2) Atherosclerosis of both carotid arteries Assessment & Plan: As above, he had a carotid ultrasound during this admission showing mild bilateral disease but no obstruction. He should continue on as pirin and statin medication. (3) Mixed hyperlipidemia Assessment & Plan: Continue statin medication. He should be on intensive dose statin for at least the next month due to the acute stroke. (4) Primary hypertension Assessment & Plan: Blood pressures are intermittently elevated although he has not this acute stroke so we want to avoid excessive drops in his blood pressure. We may want to consider restarting his losartan today or tomorrow. Given his severe hyponatremia at the time of admission, we may want to avoid restarting hydrochlorothiazide. (5) Short-term memory loss Assessment & Plan: He tells me his primary provider started him on donezepil well over 5 years ago but he is completely oriented and does not appear to have any significant memory loss. I would question the diagnosis of dementia. MOLLY VELAZQUEZ JR, MD Jan 26, 2022 09:25
--- NOTE | 2022-01-26 09:29 | Cardiac Procedure Note ---
Cardiology Procedures Date of Procedure 01/26/2022 IMPLANTABLE LOOP RECORDER INSERTION INDICATION: Acute cerebrovascular accident. PROCEDURE: After informed consent, the left pectoral region was prepped and draped in the usual sterile fashion. 2% lidocaine was then used for local anesthesia in the fourth intercostal space in the left midclavicular line. A lianet was then made in the skin using the insertion kit. I subsequently inserted a Medtronic LINQ II (serial number [id number]) with the insertion tool. The device was interrogated and there was good R wave amplitude. Dermabond was applied to the incision and a sterile dressing was applied. IMPRESSION: 1. Status post implantable loop recorder insertion with a Medtronic LINQ II (serial number [id number]). Certain portions of this document may have been dictated utilizing voice recognition technology. Inherent to this technology, typographical and grammatical errors may exist. As much as I am diligent to identify and correct these mistakes, some errors may remain in the document. MOLLY VELAZQUEZ JR, MD Jan 26, 2022 09:29
--- NOTE | 2022-01-26 10:47 | Physical Therapy Daily Note ---
PT Daily Note-Current Subjective Patient in bed. RN reports patient is "okay" to work with. Family present. Mental Status Patient Orientation: Person Transfers SCALE: Activities may be completed with or without assistive devices. 0-Oejtcpuegw-ozpjqce completes the activity by him/herself with no assistance from a helper. 5-Set-up or Clean-up Assistance-helper sets up or cleans up; patient completes activity. Obion assists only prior to or following the activity. 4-Supervision or Touching Assistance-helper provides verbal cues and/or touching/steadying and/or contact guard assistance as patient completes activity. Assistance may be provided throughout the activity or intermittently. 3-Partial/Moderate Assistance-helper does LESS THAN HALF the effort. Obion lifts, holds or supports trunk or limbs, but provides less than half the effort. 2-Substantial/Maximal Assistance-helper does MORE THAN HALF the effort. Obion lifts or holds trunk or limbs and provides more than half the effort. 5-Fwmxrahep-majquk does ALL the effort. Patient does none of the effort to complete the activity. Or, the assistance of 2 or more helpers is required for the patient to complete the activity. If activity was not attempted, code reason: 7-Patient Refused. 9-Not Applicable-not attempted and the patient did not perform the activity before the current illness, exacerbation or injury. 10-Not Attempted due to Environmental Limitations-(lack of equipment, weather restraints, etc.). 88-Not Attempted due to Medical Conditions or Safety Concerns. Lying to Sitting/Side of Bed(Q: 4 (SBA) Sit to Stand (QC): 4 (CGA) Chair/Wpg-rp-Opyha Xfer(QC): 4 (CGA) Weight Bearing Right Lower Extremity: Right Weight Bearing/Tolerated Left Lower Extremity: Left Full Weight Bearing Gait Training Does the Patient Walk?: Yes Distance: 225' Walk 10 feet (QC): 4 (CGA) Walk 50 ft with 2 Turns(QC): 4 (CGA) Walk 150 ft (QC): 4 (CGA) Gait Assistive Device: FWW VC's for body placement in FWW to not "step through" FWW/step to gait sequence with 3 standing recovery periods due to fatigue Exercises Supine Ex: Ankle pumps, Quad Set, Heel Slides Supine Reps: 10 Seated Therapy Exercises: Ankle pumps, Long arc quads Seated Reps: 15 Assessment Patient requires redirection to remain on task. Patient's family voice frustration with insurance process. Patient is currently at [facility] with all gross motor skills for safety. PT Fpc Goals Fpc Goals PT Mechanical Handyman Goals Time Frame: Feb 04, 2022 Roll Left & Right (QC): 4 Sit to Lying (QC): 4 Lying-Sitting on Side/Bed(QC): 4 Sit to Stand (QC): 4 Chair/Eui-nt-Jbnpz Xfer(QC): 4 Toilet Transfer (QC): 4 Walk 10 feet (QC): 4 Walk 50ft with 2 Turns (QC): 4 Walk 150 ft (QC): 4 PT Plan Treatment/Plan Treatment Plan: Continue Plan of Care Treatment Plan: Bed Mobility, Education, Functional Activity Jamie, Functional Strength, Gait, Safety, Therapeutic Exercise, Transfers Treatment Duration: Feb 04, 2022 Frequency: 6 times per week Estimated Hrs Per Day: .5 hour per day Patient and/or Family Agrees t: Yes Time/GCodes Time In: 1018 Time Out: 1042 Total Billed Treatment Time: 23 Total Billed Treatment 1 visit GT 15 min EX 8 min WANDER OTT PT Jan 26, 2022 10:47
--- NOTE | 2022-01-26 11:42 | Progress Note ---
MIGUEL JUNIOR 01/26/22 1142: Subjective Date Seen by a Provider: Jan 26, 2022 Time Seen by a Provider: 09:33 Subjective/Events-last exam Chief complaint: Hyponatremia History of present illness: This is an 81-year-old white male clinic patient of [facility] in [place] who remains at [facility] to recover from right hip fracture who presents to the ER with nausea and vomiting and abdominal pain found to have hyponatremia of 108. He was placed on normal saline and eICU has been monitoring BMP checks every 4 hours. MRI will be obtained to evaluate a brain mass. Subjective/Events-last exam Patient is doing well today, accompanied by and granddaughter on this visit. Continuing to work with PT. Had an assisted fall yesterday. Hyponatremia is continuing to resolve, Na at 125 today. Review of Systems General: No Chills, No Night Sweats, No Fatigue HEENT: No Head Aches, No Visual Changes Pulmonary: No Dyspnea, No Cough Cardiovascular: No: Chest Pain, Palpitations Gastrointestinal: No: Nausea, Vomiting, Diarrhea Genitourinary: No Dysuria, No Frequency, No Incontinence Musculoskeletal: No: back pain Neurological: No: Numbness, Change in speech, Confusion Objective Exam Last Set of Vital Signs Vital Signs Date Time Temp Pulse Resp B/P (MAP) Pulse Ox O2 Delivery O2 Flow Rate FiO2 01/26/22 08:06 96 Room Air 01/26/22 08:00 84 20 141/91 01/26/22 07:59 37.4 01/23/22 21:52 21 Capillary Refill : Less Than 3 Seconds I&O Intake and Output 01/26/22 00:00 Intake Total 1410 ml Output Total 3350 ml Balance -1940 ml Intake Oral 1410 ml Output Urine Total 3350 ml # Bowel Movements 1 General: Alert, Oriented X3 Lungs: Clear to Auscultation, Normal Air Movement Heart: Regular Rate Skin: Other (Ecchymosis on right posterior arm.) Psych/Mental Status: Mental Status NL, Mood NL Results Lab Laboratory Tests 01/26/22 04:43: White Blood Count 4.6, Red Blood Count 3.98L, Hemoglobin 10.7L, Hematocrit 32L, Mean Corpuscular Volume 79L, Mean Corpuscular Hemoglobin 27, Mean Corpuscular Hemoglobin Concent 34, Red Cell Distribution Width 14.5, Platelet Count 313, Mean Platelet Volume 9.4, Immature Granulocyte % (Auto) 0, Neutrophils (%) (Auto) 67, Lymphocytes (%) (Auto) 20, Monocytes (%) (Auto) 10, Eosinophils (%) (Auto) 2, Basophils (%) (Auto) 0, Neutrophils # (Auto) 3.1, Lymphocytes # (Auto) 0.9L, Monocytes # (Auto) 0.5, Eosinophils # (Auto) 0.1, Basophils # (Auto) 0.0, Immature Granulocyte # (Auto) 0.0, Sodium Level 125*L, Potassium Level 3.7, Chloride Level 96L, Carbon Dioxide Level 18L, Anion Gap 11, Blood Urea Nitrogen 9, Creatinine 0.75, Estimat Glomerular Filtration Rate 90, BUN/Creatinine Ratio 12, Glucose Level 91, Calcium Level 8.8, Corrected Calcium 9.3, Magnesium Level 1.6, Total Bilirubin 0.7, Aspartate Amino Transf (AST/SGOT) 22, Alanine Aminotransferase (ALT/SGPT) 22, Alkaline Phosphatase 101, Total Protein 5.6L, Albumin 3.4 Microbiology 01/23/22 MRSA Screen - Final, Complete MRSA not isolated Assessment/Plan Assessment/Plan Assess & Plan/Chief Complaint Assessment: Hyponatremia due to Hydrochlorothiazide as an adverse event N/V CVA- MRI on 01/24/2022 Weakness Hip fracture hx Dementia Plan: 01/24/2022: Fluid restriction NS BMP Cardiology consult Carotid usg Lipid 01/25/2022: Fluid restriction Stop Normal Saline due to excess urination and adequate oral intake of fluids Transition to 4th [address] hydrochlorothiazide as an allergy 01/26/2022: Continue supportive care and monitoring labs Ready for discharge to [facility] loop recorder placed this am Clinical Quality Measures Admission Status Admission Dx Assessment: Emesis Hyponatremia Hypokalemia Hypochloremia Weakness Parenchymal Mass- Head CT on 01/23 Plan: 01/24/2022 Start with hypertonic saline to address hyponatremia, then to normal saline IVF Potassium Supplement Supportive Care Brain MRI ITZEL BOWLES DO 01/27/22 0630: Subjective Subjective/Events-last exam Patient doing much better Moving down to fourth floor at bedside and everything explained in great detail Loop recorder placed Sodium level 125 [address]charge [facility] tomorrow Review of Systems General: Fatigue, Malaise Musculoskeletal: leg pain Objective Exam General: Alert, Oriented X3 Lungs: Clear to Auscultation Heart: Regular Rate Psych/Mental Status: Mental Status NL Assessment/Plan Assessment/Plan Assess & Plan/Chief Complaint Transfer to fourth floor [facility] Supervisory-Addendum Brief Verification & Attestation Participated in pt care: history, MDM, physical Personally performed: exam, history, MDM, supervision of care Care discussed with: Medical Student Procedures: n/a Results interpretation: Verified all documentation Verification and Attestation of Medical Student E/M Service A medical student performed and documented this service in my presence. I reviewed and verified all information documented by the medical student and made modifications to such information, when appropriate. I personally performed the physical exam and medical decision making. Itzel Bowles, Jan 27, 2022,06:29 MIGUEL JUNIOR Jan 26, 2022 11:42 ITZEL BOWLES DO Jan 27, 2022 06:30
--- NOTE | 2022-01-26 12:54 | Occupational Ther Daily Note ---
OT Current Status-Daily Note Subjective Pt alert, sitting in recliner. Pt agrees to therapy. No c/o pain. Mental Status/Objective Patient Orientation: Person, Place, Time, Situation Attachments: IV ADL-Treatment After gathering supplies, pt able to complete oral care and wash face by self. Nrsg reported that pt required 2 person assist to complete toileting, one to stand and one to cleanse/clothing manipulation. Therapy Code Descriptions/Definitions Functional [place] Measure: 0=Not Assessed/NA 4=Minimal Assistance 1=Total Assistance 5=Supervision or Setup 2=Maximal Assistance 6=Modified [place] 3=Moderate Assistance 7=Complete IndependenceSCALE: Activities may be completed with or without assistive devices. 4-Eyccazcrtf-cdvwzlo completes the activity by him/herself with no assistance from a helper. 5-Set-up or Clean-up Assistance-helper sets up or cleans up; patient completes activity. [place] assists only prior to or following the activity. 4-Supervision or Touching Assistance-helper provides verbal cues and/or touching/steadying and/or contact guard assistance as patient completes activity. Assistance may be provided throughout the activity or intermittently. 3-Partial/Moderate Assistance-helper does LESS THAN HALF the effort. [place] lifts, holds or supports trunk or limbs, but provides less than half the effort. 2-Substantial/Maximal Assistance-helper does MORE THAN HALF the effort. [place] lifts or holds trunk or limbs and provides more than half the effort. 8-Jyettjibv-hixwhp does ALL the effort. Patient does none of the effort to complete the activity. Or, the assistance of 2 or more helpers is required for the patient to complete the activity. If activity was not attempted, code reason: 7-Patient Refused. 9-Not Applicable-not attempted and the patient did not perform the activity before the current illness, exacerbation or injury. 10-Not Attempted due to Environmental Limitations-(lack of equipment, weather restraints, etc.). 88-Not Attempted due to Medical Conditions or Safety Concerns. Other Treatment Pt completed 3 B UE exercises against gravity with recovery breaks between sets. B shldr flex, B shldr abd/add, B shldr horizontal abd/add. After session, pt sitting in recliner with call light/phone in reach. Safety measures in place. OT Prison Goals Prison Goals 1=Demonstrate adherence to instructed precautions during ADL tasks. 2=Patient will verbalize/demonstrate understanding of assistive devices/modifications for ADL. 3=Patient will improve strength/tolerance for activity to enable patient to perform ADL's. OT Education/Plan Problem List/Assessment Assessment: Decreased Activ Tolerance, Decreased UE Strength, Impaired Self- Care Skills Discharge Recommendations Plan/Recommendations: Continue POC Treatment Plan/Plan of Care Patient would benefit from OT for education, treatment and training to promote independence in ADL's, mobility, safety and/or upper extremity function for ADL's. Plan of Care: ADL Retraining, Functional Mobility, Group Exercise/Act as Ind, U E Funct Exercise/Act Treatment Duration: Feb 03, 2022 Frequency: 3 times per week (3-5x/week) Estimated Hrs Per Day: .25 hour per day Agreement: Yes Rehab Potential: Fair Time/GCodes Start Time: 11:10 Stop Time: 11:36 Total Time Billed (hr/min): 26 Billed Treatment Time 1 visit-EX 1 (15 min) ADL 1 (11 min) RUBY JC Jan 26, 2022 12:54
[2022-01-26 13:27] VITALS: BP 134/76
[2022-01-26 15:54] VITALS: BP 142/80
[2022-01-26 19:23] VITALS: BP 132/76
[2022-01-26] MEDS: DONEPEZIL 10 MG (ARICEPT) TAB PO SCH (20:14)
[2022-01-26] MEDS: MONTELUKAST 10 MG (SINGULAIR) TAB PO SCH (20:14)
[2022-01-26] MEDS: ENOXAPARIN 40 MG/0.4 ML (LOVENOX) SYR SC SCH (20:15)
[2022-01-27] VITALS: BP 146/84
[2022-01-27 04:00] VITALS: BP 156/77
[2022-01-27 05:43] LABS: BASOPHILS % (AUTO) 0 % (0-10); EOSINOPHILS # (AUTO) 0.1 10^3/uL (0.0-0.3); EOSINOPHILS % (AUTO) 2 % (0-10); HEMATOCRIT 29 % (40-54); HEMOGLOBIN 9.7 g/dL (13.3-17.7); LYMPHOCYTES # (AUTO) 1.1 10^3/uL (1.0-4.0); LYMPHOCYTES % (AUTO) 24 % (12-44); MEAN CORPUSCULAR HEMOGLOBIN 27 pg (25-34); MEAN CORPUSCULAR HGB CONC 33 g/dL (32-36); MEAN CORPUSCULAR VOLUME 80 fL (80-99); MEAN PLATELET VOLUME 9.5 fL (9.0-12.2); MONOCYTES # (AUTO) 0.4 10^3/uL (0.0-1.0); MONOCYTES % (AUTO) 9 % (0-12); NEUTROPHILS % (AUTO) 64 % (42-75); PLATELET COUNT 292 10^3/uL (130-400); WHITE BLOOD COUNT 4.7 10^3/uL (4.3-11.0)
[2022-01-27 05:54] LABS: ALBUMIN 3.2 GM/DL (3.2-4.5); POTASSIUM 3.5 MMOL/L (3.6-5.0)
[2022-01-27 05:56] LABS: CALCIUM 8.5 MG/DL (8.5-10.1)
[2022-01-27 05:57] LABS: TOTAL PROTEIN 5.1 GM/DL (6.4-8.2)
[2022-01-27 05:59] LABS: BILIRUBIN,TOTAL 0.6 MG/DL (0.1-1.0)
[2022-01-27 06:01] LABS: CREATININE SERUM 0.71 MG/DL (0.60-1.30)
[2022-01-27 06:03] LABS: MAGNESIUM 1.4 MG/DL (1.6-2.4)
[2022-01-27] MEDS: VENlafaxine XR 75 MG (EFFEXOR XR) CAP PO SCH (06:10)
[2022-01-27 07:45] VITALS: BP 141/71
[2022-01-27] MEDS: LACTULOSE SYRUP 10GM/15ML (ENULOSE) 30ML UDC PO SCH ×2 (07:47→20:53)
[2022-01-27] MEDS: ASPIRIN 81 MG CHEW (CHILDREN'S ASA) PO SCH (08:27)
[2022-01-27] MEDS: OMEGA 3 (FISH OIL) 1000 MG CAP PO SCH ×2 (08:27→20:52)
[2022-01-27] MEDS: PANTOPRAZOLE 20 MG TABLET (PROTONIX) PO SCH (08:27)
[2022-01-27] MEDS: FAMOTIDINE 20 MG (PEPCID) TABLET PO SCH ×2 (08:27→20:52)
--- NOTE | 2022-01-27 08:37 | Occupational Ther Daily Note ---
OT Current Status-Daily Note Subjective Pt pleasant, agreeable for treatment. Appearance Pt returned to sitting in recliner, alarm set, all needs within reach. Mental Status/Objective Patient Orientation: Person, Place, Situation Attachments: IV, Telemetry ADL-Treatment Therapy Code Descriptions/Definitions Functional [place] Measure: 0=Not Assessed/NA 4=Minimal Assistance 1=Total Assistance 5=Supervision or Setup 2=Maximal Assistance 6=Modified [place] 3=Moderate Assistance 7=Complete IndependenceSCALE: Activities may be completed with or without assistive devices. 9-Mdjfljfngx-hrmfmxx completes the activity by him/herself with no assistance from a helper. 5-Set-up or Clean-up Assistance-helper sets up or cleans up; patient completes activity. [place] assists only prior to or following the activity. 4-Supervision or Touching Assistance-helper provides verbal cues and/or touching/steadying and/or contact guard assistance as patient completes activity. Assistance may be provided throughout the activity or intermittently. 3-Partial/Moderate Assistance-helper does LESS THAN HALF the effort. [place] lifts, holds or supports trunk or limbs, but provides less than half the effort. 2-Substantial/Maximal Assistance-helper does MORE THAN HALF the effort. [place] lifts or holds trunk or limbs and provides more than half the effort. 1-Sdtwnrarm-pnkdmn does ALL the effort. Patient does none of the effort to co mplete the activity. Or, the assistance of 2 or more helpers is required for the patient to complete the activity. If activity was not attempted, code reason: 7-Patient Refused. 9-Not Applicable-not attempted and the patient did not perform the activity before the current illness, exacerbation or injury. 10-Not Attempted due to Environmental Limitations-(lack of equipment, weather restraints, etc.). 88-Not Attempted due to Medical Conditions or Safety Concerns. Oral Hygiene (QC): 4 Shower/Bathe Self (QC): 3 Upper Body Dressing (QC): 5 Toileting Hygiene (QC): 3 Toilet Transfer (QC): 4 Sit<>stand: CGA. Pt ambulated to/from bathroom with walker and Min A. He stood at sink for oral care and face washing with CGA for safety. While standing, pt appears to be limiting full weightbearing onto RLE. Mild LOB, able to recover independently with good use of ankle strategy. Education on widening PIPE. As fatigue worsens, unsteadiness increases. Partial sponge bath performed seated in recliner. Pt washed upper body without assist. CGA-Min a for standing balance when washing dilip area/buttocks. Slight increase in balance assist needed when reaching posteriorly to wash buttocks, but no LOB. Pt able to bend at waist to reach pants in order to pull back up to waist. Pt initially wanted to change clothing, but no clean pants were available. Education OT Patient Education: Correct positioning, Modified ADL techniques, Progress toward Goal/Update tx plan, Purpose of tx/functional activities, Safety issues, Transfer techniques Teaching Recipient: Patient Teaching Methods: Demonstration, Discussion Response to Teaching: Verbalize Understanding, Return Demonstration, Reinforcement Needed OT Skilled Nursing Goals Skilled Nursing Goals 1=Demonstrate adherence to instructed precautions during ADL tasks. 2=Patient will verbalize/demonstrate understanding of assistive devices/modifications for ADL. 3=Patient will improve strength/tolerance for activity to enable patient to perform ADL's. OT Education/Plan Problem List/Assessment Assessment: Decreased Activ Tolerance, Decreased Safety Aware, Decreased UE Strength, Impaired Funct Balance, Impaired I ADL's, Impaired Self-Care Skills Discharge Recommendations Plan/Recommendations: Continue POC Treatment Plan/Plan of Care Treatment,Training & Education: Yes Patient would benefit from OT for education, treatment and training to promote independence in ADL's, mobility, safety and/or upper extremity function for ADL's. Plan of Care: ADL Retraining, Functional Mobility, Group Exercise/Act as Ind, UE Funct Exercise/Act Treatment Duration: Feb 03, 2022 Frequency: 3 times per week (3-5x/week) Estimated Hrs Per Day: .25 hour per day Agreement: Yes Rehab Potential: Fair Time/GCodes Start Time: 07:50 Stop Time: 08:15 Total Time Billed (hr/min): 25 Billed Treatment Time 1 visit ADL x2 Re Tripathi OT Jan 27, 2022 08:37
[2022-01-27] MEDS: DOCUSATE SODIUM 100 MG (COLACE) CAP PO SCH ×2 (09:37→20:52)
[2022-01-27] MEDS: polyethylene glycoL POWDER 17 GM (MIRALAX) PACK PO SCH ×2 (09:37→20:53)
[2022-01-27] MEDS: SENNA W/DOCUSATE (SENOKOT S) TABLET PO SCH ×2 (09:37→20:53)
[2022-01-27] MEDS: BISACODYL 10 MG SUPP (DULCOLAX) PR SCH (09:38)
[2022-01-27] MEDS ORDERED: SENN1TAB76 PO (10:48)
[2022-01-27] MEDS ORDERED: OXC5T PO (10:48)
[2022-01-27] MEDS ORDERED: ATOR80TA64 PO (10:48)
--- NOTE | 2022-01-27 10:51 | Discharge Inst-Skilled Nursing ---
Discharge Inst-Skilled NF Reconcile Patient Problems Problems Reviewed?: Yes Patient Instructions Patient Problems: CVA s/p loop recorder Hyponatremia due to HCTZ Goal: [place] Consult/Follow Up/Orders Follow Up Appt.: PCP 1 week Skilled NF Admit to: [facility] Certification ([facility]) I certify that [facility] services are required to be given on an inpatient basis because of the above named patient's need for half-way care on a continuing basis for the conditions(s) for which he/she was receiving inpatient hospital services prior to his/her transfer to the [facility]. [facility] Facility Order: Nursing Services, Maintenance Chief-Evaluate & Treat, Physical Therapy-Evaluate & Treat, Speech Language-Evaluate & Treat Oxygen Delivery Method: Room Air Discharge Diet: No Restrictions, Other Diet Daily Activity as Tolerated: Yes Resuscitation Status: Full Code New & Resume Previous Orders New Medications: Atorvastatin Calcium (Lipitor) 80 Mg Tablet 80 MG PO DAILY, #90 TAB 3 Refills Oxycodone Hcl (Oxyir Tablet) 5 Mg Tab 5 MG PO Q4H PRN for PAIN-SEE DOSE INSTRUCTIONS, #10 TAB Sennosides/Docusate Sodium (Stool Softener-Laxative Tablet) 1 Each Tablet 2 EA PO BID, #30 TAB Continued Medications: Acetaminophen (Tylenol Extra Strength) 500 Mg Tablet 500-1000 MG PO Q6H, TAB Aspirin (Aspirin) 81 Mg Tab.chew 81 MG PO DAILY, TAB Donepezil HCl (Donepezil HCl) 10 Mg Tablet 10 MG PO HS, TAB Ergocalciferol (Vitamin D2) (Vitamin D2) 50 Mcg Capsule 50 MCG PO DAILY, CAP Famotidine (Pepcid) 20 Mg Tablet 20 MG PO BID, TAB Montelukast Sodium (Montelukast Sodium) 10 Mg Tablet 10 MG PO HS, TAB [place]-3 Fatty Acids/Fish Oil ([place] 3 1,000 mg Softgel) 1 Each Capsule 1 EACH PO Q12H, CAP Omeprazole (Omeprazole) 20 Mg Capsule.dr 20 MG PO DAILY, CAP Ondansetron (Ondansetron Odt) 8 Mg Tab.rapdis 8 MG PO Q6H PRN for NAUSEA/VOMITING-1ST LINE, TAB Venlafaxine HCl (Venlafaxine HCl ER) 150 Mg Cap.er.24h 150 MG PO DAILY, CAP Vit A/C/E/Zinc/Co (Preservision Areds Softgel) 1 Cap Capsule 1 CAP PO BID, CAP Discontinued Medications: Losartan/Hydrochlorothiazide (Losartan-Hctz 100-25 mg Tab) 1 Each Tablet 1 EACH PO BID, TAB Other Instructions BMP on 01/30/22 Itzel Kelly Jan 27, 2022 10:49 ITZEL KELLY DO Jan 27, 2022 10:51
--- NOTE | 2022-01-27 10:52 | Discharge Summary ---
Diagnosis/Chief Complaint Date of Admission Jan 23, 2022 at 18:41 Date of Discharge Discharge Date: Jan 27, 2022 Reason Hospital Visit Chief complaint: Hyponatremia History of present illness: This is an 81-year-old white male clinic patient of [facility] in [place] who remains at [facility] to recover from right hip fracture who presents to the ER with nausea and vomiting and abdominal pain found to have hyponatremia of 108. He was placed on normal saline and eICU has been monitoring BMP checks every 4 hours. MRI will be obtained to evaluate a brain mass. Discharge Summary Discharge Physical Examination Allergies: Coded Allergies: Penicillins (Verified Allergy, Unknown, 01/23/22) bee venom protein (honey bee) (Verified Allergy, Unknown, 01/23/22) codeine (Verified Allergy, Unknown, 01/23/22) hydrochlorothiazide (Verified Allergy, Unknown, 01/26/22) Hyponatremia Vitals & I&Os Vital Signs Date Time Temp Pulse Resp B/P (MAP) Pulse Ox O2 Delivery O2 Flow Rate FiO2 01/28/22 04:00 37.0 75 18 169/73 (105) 94 NIV CPAP 01/26/22 13:27 21 Hospital Course Labs (last 24 hrs) Laboratory Tests 01/23/22 17:25: White Blood Count 7.7, Red Blood Count 4.48, Hemoglobin 12.0L, Hematocrit 34L, Mean Corpuscular Volume 75L, Mean Corpuscular Hemoglobin 27, Mean Corpuscular Hemoglobin Concent 36, Red Cell Distribution Width 13.3, Platelet Count 405H, Mean Platelet Volume 8.6L, Immature Granulocyte % (Auto) 1, Neutrophils (%) (Auto) 81H, Lymphocytes (%) (Auto) 12, Monocytes (%) (Auto) 6, Eosinophils (%) (Auto) 1, Basophils (%) (Auto) 0, Neutrophils # (Auto) 6.2, Lymphocytes # (Auto) 0.9L, Monocytes # (Auto) 0.5, Eosinophils # (Auto) 0.0, Basophils # (Auto) 0.0, Immature Granulocyte # (Auto) 0.1, Prothrombin Time 14.1, INR Comment 1.1, Sodium Level 108*L, Potassium Level 3.1L, Chloride Level 74L, Carbon Dioxide Level 21, Anion Gap 13, Blood Urea Nitrogen 9, Creatinine 0.80, Estimat Glomerular Filtration Rate 88, BUN/Creatinine Ratio 11, Glucose Level 115H, Calcium Level 8.9, Corrected Calcium 9.1, Magnesium Level 1.3L, Iron Level 107, Total Iron Binding Capacity 350H, Unsaturated Iron Binding Capacity 243, Transferrin % Saturation 31, Ferritin 494.4H, Total Bilirubin 1.2H, Aspartate Amino Transf (AST/SGOT) 24, Alanine Aminotransferase (ALT/SGPT) 19, Alkaline Phosphatase 107, B-Type Natriuretic Peptide 41.0, Total Protein 6.4, Albumin 3.8, Lipase 35, Thyroid Stimulating Hormone (TSH) 1.16 01/23/22 18:50: Urine Color YELLOW, Urine Clarity CLEAR, Urine pH 7.0, Urine Specific [place] 1.015L, Urine Protein NEGATIVE, Urine Glucose (UA) NEGATIVE, Urine Ketones NEGATIVE, Urine Nitrite NEGATIVE, Urine Bilirubin NEGATIVE, Urine Urobilinogen 1.0, Urine Leukocyte Esterase NEGATIVE, Urine RBC (Auto) NEGATIVE, Urine RBC NONE, Urine WBC NONE, Urine Crystals PRESENTH, Urine Amorphous Sediment FEW ROMY PHOSPHATEH, Urine Bacteria NEGATIVE, Urine Casts NONE, Urine Mucus NEGATIVE, Urine Culture Indicated NO, Urine Osmolality 470, Urine Random Sodium 86, Serum Osmolality 229L 01/23/22 21:10: Sodium Level 106*L, Potassium Level 3.3L, Chloride Level 76L, Carbon Dioxide Level 19L, Anion Gap 11, Blood Urea Nitrogen 9, Creatinine 0.76, Estimat Glomerular Filtration Rate 90, BUN/Creatinine Ratio 12, Glucose Level 98, Calcium Level 8.5 01/24/22 01:09: Sodium Level 107*L, Potassium Level 3.2L, Chloride Level 76L, Carbon Dioxide Level 21, Anion Gap 10, Blood Urea Nitrogen 9, Creatinine 0.78, Estimat Glomerular Filtration Rate 89, BUN/Creatinine Ratio 12, Glucose Level 103, Calcium Level 8.5 01/24/22 04:45: White Blood Count 6.3, Red Blood Count 4.07L, Hemoglobin 10.8L, Hematocrit 31L, Mean Corpuscular Volume 75L, Mean Corpuscular Hemoglobin 27, Mean Corpuscular Hemoglobin Concent 35, Red Cell Distribution Width 13.2, Platelet Count 357, Mean Platelet Volume 8.9L, Immature Granulocyte % (Auto) 1, Neutrophils (%) (Auto) 68, Lymphocytes (%) (Auto) 19, Monocytes (%) (Auto) 10, Eosinophils (%) (Auto) 2, Basophils (%) (Auto) 0, Neutrophils # (Auto) 4.3, Lymphocytes # (Auto) 1.2, Monocytes # (Auto) 0.6, Eosinophils # (Auto) 0.1, Basophils # (Auto) 0.0, Immature Granulocyte # (Auto) 0.1, Sodium Level 110*L, Potassium Level 3.3L, Chloride Level 79L, Carbon Dioxide Level 20L, Anion Gap 11, Blood Urea Nitrogen 8, Creatinine 0.76, Estimat Glomerular Filtration Rate 90, BUN/Creatinine Ratio 11, Glucose Level 91, Calcium Level 8.3L, Corrected Calcium 8.8, Phosphorus Level 2.5, Magnesium Level 2.0, Total Bilirubin 1.0, Aspartate Amino Transf (AST/SGOT) 25, Alanine Aminotransferase (ALT/SGPT) 19, Alkaline Phosphatase 107, Total Protein 5.6L, Albumin 3.4 01/24/22 08:41: Sodium Level 112*L, Potassium Level 3.6, Chloride Level 80L, Carbon Dioxide Level 23, Anion Gap 9, Blood Urea Nitrogen 8, Creatinine 0.82, Estimat Glomerular Filtration Rate 88, BUN/Creatinine Ratio 10, Glucose Level 115H, Calcium Level 8.7 01/24/22 12:15: Sodium Level 113*L, Potassium Level 4.1, Chloride Level 82L, Carbon Dioxide Level 20L, Anion Gap 11, Blood Urea Nitrogen 8, Creatinine 0.77, Estimat Glomerular Filtration Rate 89, BUN/Creatinine Ratio 10, Glucose Level 91, Calcium Level 8.7 01/24/22 16:15: Sodium Level 116*L, Potassium Level 3.9, Chloride Level 84L, Carbon Dioxide Level 21, Anion Gap 11, Blood Urea Nitrogen 8, Creatinine 0.81, Estimat Glomerular Filtration Rate 88, BUN/Creatinine Ratio 10, Glucose Level 83, Calcium Level 8.7 01/24/22 20:00: Sodium Level 117*L, Potassium Level 3.4L, Chloride Level 85L, Carbon Dioxide Level 22, Anion Gap 10, Blood Urea Nitrogen 8, Creatinine 0.76, Estimat Glomerular Filtration Rate 90, BUN/Creatinine Ratio 11, Glucose Level 91, Calcium Level 8.5 01/25/22 00:25: Sodium Level 117*L, Potassium Level 4.3, Chloride Level 87L, Carbon Dioxide Level 18L, Anion Gap 12, Blood Urea Nitrogen 7, Creatinine 0.72, Estimat Glomerular Filtration Rate 91, BUN/Creatinine Ratio 10, Glucose Level 82, Calcium Level 8.5 01/25/22 04:25: Triglycerides Level 78, Cholesterol Level 157, LDL Cholesterol Direct 121, VLDL Cholesterol 16, HDL Cholesterol 33L 01/25/22 04:45: Sodium Level 120*L, Potassium Level 4.1, Chloride Level 90L, Carbon Dioxide Level 20L, Anion Gap 10, Blood Urea Nitrogen 6L, Creatinine 0.76, Estimat Glomerular Filtration Rate 90, BUN/Creatinine Ratio 8, Glucose Level 85, Calcium Level 8.8, White Blood Count 5.9, Red Blood Count 4.35, Hemoglobin 11.7L, Hematocrit 34L, Mean Corpuscular Volume 78L, Mean Corpuscular Hemoglobin 27, Mean Corpuscular Hemoglobin Concent 35, Red Cell Distribution Width 13.9, Platelet Count 379, Mean Platelet Volume 8.9L, Immature Granulocyte % (Auto) 1, Neutrophils (%) (Auto) 77H, Lymphocytes (%) (Auto) 13, Monocytes (%) (Auto) 7, Eosinophils (%) (Auto) 1, Basophils (%) (Auto) 1, Neutrophils # (Auto) 4.6, Lymphocytes # (Auto) 0.8L, Monocytes # (Auto) 0.4, Eosinophils # (Auto) 0.1, Basophils # (Auto) 0.0, Immature Granulocyte # (Auto) 0.0, Corrected Calcium 9.0, Phosphorus Level 2.4, Magnesium Level 1.5L, Total Bilirubin 1.0, Aspartate Amino Transf (AST/SGOT) 27, Alanine Aminotransferase (ALT/SGPT) 23, Alkaline Phosphatase 116, Total Protein 6.1L, Albumin 3.7 01/26/22 04:43: White Blood Count 4.6, Red Blood Count 3.98L, Hemoglobin 10.7L, Hematocrit 32L, Mean Corpuscular Volume 79L, Mean Corpuscular Hemoglobin 27, Mean Corpuscular Hemoglobin Concent 34, Red Cell Distribution Width 14.5, Platelet Count 313, Mean Platelet Volume 9.4, Immature Granulocyte % (Auto) 0, Neutrophils (%) (Auto) 67, Lymphocytes (%) (Auto) 20, Monocytes (%) (Auto) 10, Eosinophils (%) (Auto) 2, Basophils (%) (Auto) 0, Neutrophils # (Auto) 3.1, Lymphocytes # (Auto) 0.9L, Monocytes # (Auto) 0.5, Eosinophils # (Auto) 0.1, Basophils # (Auto) 0.0, Immature Granulocyte # (Auto) 0.0, Sodium Level 125*L, Potassium Level 3.7, Ch loride Level 96L, Carbon Dioxide Level 18L, Anion Gap 11, Blood Urea Nitrogen 9, Creatinine 0.75, Estimat Glomerular Filtration Rate 90, BUN/Creatinine Ratio 12, Glucose Level 91, Calcium Level 8.8, Corrected Calcium 9.3, Magnesium Level 1.6, Total Bilirubin 0.7, Aspartate Amino Transf (AST/SGOT) 22, Alanine Aminotransferase (ALT/SGPT) 22, Alkaline Phosphatase 101, Total Protein 5.6L, Albumin 3.4 01/27/22 05:19: White Blood Count 4.7, Red Blood Count 3.63L, Hemoglobin 9.7L, Hematocrit 29L, Mean Corpuscular Volume 80, Mean Corpuscular Hemoglobin 27, Mean Corpuscular Hemoglobin Concent 33, Red Cell Distribution Width 14.6H, Platelet Count 292, Mean Platelet Volume 9.5, Immature Granulocyte % (Auto) 1, Neutrophils (%) (Auto) 64, Lymphocytes (%) (Auto) 24, Monocytes (%) (Auto) 9, Eosinophils (%) (Auto) 2, Basophils (%) (Auto) 0, Neutrophils # (Auto) 3.0, Lymphocytes # (Auto) 1.1, Monocytes # (Auto) 0.4, Eosinophils # (Auto) 0.1, Basophils # (Auto) 0.0, Immature Granulocyte # (Auto) 0.0, Sodium Level 126L, Potassium Level 3.5L, Chloride Level 95L, Carbon Dioxide Level 19L, Anion Gap 12, Blood Urea Nitrogen 9, Creatinine 0.71, Estimat Glomerular Filtration Rate 92, BUN/Creatinine Ratio 13, Glucose Level 91, Calcium Level 8.5, Corrected Calcium 9.1, Magnesium Level 1.4L, Total Bilirubin 0.6, Aspartate Amino Transf (AST/SGOT) 19, Alanine Aminotransferase (ALT/SGPT) 20, Alkaline Phosphatase 91, Total Protein 5.1L, Albumin 3.2 Microbiology 01/23/22 MRSA Screen - Final, Complete MRSA not isolated Pending Labs Microbiology Date/Time Source Procedure Growth Status 01/23/22 20:40 Nasal MRSA Screen - Final MRSA not isolated Complete Laboratory Tests 01/23/22 17:25: White Blood Count 7.7, Red Blood Count 4.48, Hemoglobin 12.0, Hematocrit 34, Mean Corpuscular Volume 75, Mean Corpuscular Hemoglobin 27, Mean Corpuscular Hemoglobin Concent 36, Red Cell Distribution Width 13.3, Platelet Count 405, Mean Platelet Volume 8.6, Immature Granulocyte % (Auto) 1, Neutrophils (%) (Auto) 81, Lymphocytes (%) (Auto) 12, Monocytes (%) (Auto) 6, Eosinophils (%) (Auto) 1, Basophils (%) (Auto) 0, Neutrophils # (Auto) 6.2, Lymphocytes # (Auto) 0.9, Monocytes # (Auto) 0.5, Eosinophils # (Auto) 0.0, Basophils # (Auto) 0.0, Immature Granulocyte # (Auto) 0.1, Prothrombin Time 14.1, INR Comment 1.1, [place] um Level 108, Potassium Level 3.1, Chloride Level 74, Carbon Dioxide Level 21, Anion Gap 13, Blood Urea Nitrogen 9, Creatinine 0.80, Estimat Glomerular Filtration Rate 88, BUN/Creatinine Ratio 11, Glucose Level 115, Calcium Level 8.9, Corrected Calcium 9.1, Magnesium Level 1.3, Iron Level 107, Total Iron Binding Capacity 350, Unsaturated Iron Binding Capacity 243, Transferrin % Sat uration 31, Ferritin 494.4, Total Bilirubin 1.2, Aspartate Amino Transf (AST/SGOT) 24, Alanine Aminotransferase (ALT/SGPT) 19, Alkaline Phosphatase 107, B-Type Natriuretic Peptide 41.0, Total Protein 6.4, Albumin 3.8, Lipase 35, Thyroid Stimulating Hormone (TSH) 1.16 01/23/22 18:50: Urine Color YELLOW, Urine Clarity CLEAR, Urine pH 7.0, Urine Specific [place] 1 .015, Urine Protein NEGATIVE, Urine Glucose (UA) NEGATIVE, Urine Ketones NEGATIVE, Urine Nitrite NEGATIVE, Urine Bilirubin NEGATIVE, Urine Urobilinogen 1.0, Urine Leukocyte Esterase NEGATIVE, Urine RBC (Auto) NEGATIVE, Urine RBC NONE, Urine WBC NONE, Urine Crystals PRESENT, Urine Amorphous Sediment FEW [place]Y PHOSPHATE, Urine Bacteria NEGATIVE, Urine Casts NONE, Urine Mucus NEGATIVE, Urine Culture Indicated NO, Urine Osmolality 470, Urine Random Sodium 86, Serum Osmolality 229 01/23/22 21:10: Sodium Level 106, Potassium Level 3.3, Chloride Level 76, Carbon Dioxide Level 19, Anion Gap 11, Blood Urea Nitrogen 9, Creatinine 0.76, Estimat Glomerular Filtration Rate 90, BUN/Creatinine Ratio 12, Glucose Level 98, Calcium Level 8.5 01/24/22 01:09: Sodium Level 107, Potassium Level 3.2, Chloride Level 76, Carbon Dioxide Level 21, Anion Gap 10, Blood Urea Nitrogen 9, Creatinine 0.78, Estimat Glomerular Filtration Rate 89, BUN/Creatinine Ratio 12, Glucose Level 103, Calcium Level 8.5 01/24/22 04:45: White Blood Count 6.3, Red Blood Count 4.07, Hemoglobin 10.8, Hematocrit 31, Mean Corpuscular Volume 75, Mean Corpuscular Hemoglobin 27, Mean Corpuscular Hemoglobin Concent 35, Red Cell Distribution Width 13.2, Platelet Count 357, Mean Platelet Volume 8.9, Immature Granulocyte % (Auto) 1, Neutrophils (%) (Auto) 68, Lymphocytes (%) (Auto) 19, Monocytes (%) (Auto) 10, Eosinophils (%) (Auto) 2, Basophils (%) (Auto) 0, Neutrophils # (Auto) 4.3, Lymphocytes # (Auto) 1.2, Monocytes # (Auto) 0.6, Eosinophils # (Auto) 0.1, Basophils # (Auto) 0.0, Immature Granulocyte # (Auto) 0.1, Sodium Level 110, Potassium Level 3.3, Chloride Level 79, Carbon Dioxide Level 20, Anion Gap 11, Blood Urea Nitrogen 8, Creatinine 0.76, Estimat Glomerular Filtration Rate 90, BUN/Creatinine Ratio 11, Glucose Level 91, Calcium Level 8.3, Corrected Calcium 8.8, Phosphorus Level 2.5, Magnesium Level 2.0, Total Bilirubin 1.0, Aspartate Amino Transf (AST/SGOT) 25, Alanine Aminotransferase (ALT/SGPT) 19, Alkaline Phosphatase 107, Total Protein 5.6, Albumin 3.4 01/24/22 08:41: Sodium Level 112, Potassium Level 3.6, Chloride Level 80, Carbon Dioxide Level 23, Anion Gap 9, Blood Urea Nitrogen 8, Creatinine 0.82, Estimat Glomerular Filtration Rate 88, BUN/Creatinine Ratio 10, Glucose Level 115, Calcium Level 8.7 01/24/22 12:15: Sodium Level 113, Potassium Level 4.1, Chloride Level 82, Carbon Dioxide Level 20, Anion Gap 11, Blood Urea Nitrogen 8, Creatinine 0.77, Estimat Glomerular Filtration Rate 89, BUN/Creatinine Ratio 10, Glucose Level 91, Calcium Level 8.7 01/24/22 16:15: Sodium Level 116, Potassium Level 3.9, Chloride Level 84, Carbon Dioxide Level 21, Anion Gap 11, Blood Urea Nitrogen 8, Creatinine 0.81, Estimat Glomerular Filtration Rate 88, BUN/Creatinine Ratio 10, Glucose Level 83, Calcium Level 8.7 01/24/22 20:00: Sodium Level 117, Potassium Level 3.4, Chloride Level 85, Carbon Dioxide Level 22, Anion Gap 10, Blood Urea Nitrogen 8, Creatinine 0.76, Estimat Glomerular Filtration Rate 90, BUN/Creatinine Ratio 11, Glucose Level 91, Calcium Level 8.5 01/25/22 00:25: Sodium Level 117, Potassium Level 4.3, Chloride Level 87, Carbon Dioxide Level 18, Anion Gap 12, Blood Urea Nitrogen 7, Creatinine 0.72, Estimat Glomerular Filtration Rate 91, BUN/Creatinine Ratio 10, Glucose Level 82, Calcium Level 8.5 01/25/22 04:25: Triglycerides Level 78, Cholesterol Level 157, LDL Cholesterol Direct 121, VLDL Cholesterol 16, HDL Cholesterol 33 01/25/22 04:45: Sodium Level 120, Potassium Level 4.1, Chloride Level 90, Carbon Dioxide Level 20, Anion Gap 10, Blood Urea Nitrogen 6, Creatinine 0.76, Estimat Glomerular Filtration Rate 90, BUN/Creatinine Ratio 8, Glucose Level 85, Calcium Level 8.8, White Blood Count 5.9, Red Blood Count 4.35, Hemoglobin 11.7, Hematocrit 34, Mean Corpuscular Volume 78, Mean Corpuscular Hemoglobin 27, Mean Corpuscular Hemoglobin Concent 35, Red Cell Distribution Width 13.9, Platelet Count 379, Mean Platelet Volume 8.9, Immature Granulocyte % (Auto) 1, Neutrophils (%) (Auto) 77, Lymphocytes (%) (Auto) 13, Monocytes (%) (Auto) 7, Eosinophils (%) (Auto) 1, Basophils (%) (Auto) 1, Neutrophils # (Auto) 4.6, Lymphocytes # (Auto) 0.8, Monocytes # (Auto) 0.4, Eosinophils # (Auto) 0.1, Basophils # (Auto) 0.0, Immature Granulocyte # (Auto) 0.0, Corrected Calcium 9.0, Phosphorus Level 2.4, Magnesium Level 1.5, Total Bilirubin 1.0, Aspartate Amino Transf (AST/SGOT) 27, Alanine Aminotransferase (ALT/SGPT) 23, Alkaline Phosphatase 116, Total Protein 6.1, Albumin 3.7 01/26/22 04:43: White Blood Count 4.6, Red Blood Count 3.98, Hemoglobin 10.7, Hematocrit 32, Mean Corpuscular Volume 79, Mean Corpuscular Hemoglobin 27, Mean Corpuscular Hemoglobin Concent 34, Red Cell Distribution Width 14.5, Platelet Count 313, Mean Platelet Volume 9.4, Immature Granulocyte % (Auto) 0, Neutrophils (%) (Auto) 67, Lymphocytes (%) (Auto) 20, Monocytes (%) (Auto) 10, Eosinophils (%) (Auto) 2, Basophils (%) (Auto) 0, Neutrophils # (Auto) 3.1, Lymphocytes # (Auto) 0.9, Monocytes # (Auto) 0.5, Eosinophils # (Auto) 0.1, Basophils # (Auto) 0.0, Immature Granulocyte # (Auto) 0.0, Sodium Level 125, Potassium Level 3.7, Chloride Level 96, Carbon Dioxide Level 18, Anion Gap 11, Blood Urea Nitrogen 9, Creatinine 0.75, Estimat Glomerular Filtration Rate 90, BUN/Creatinine Ratio 12, Glucose Level 91, Calcium Level 8.8, Corrected Calcium 9.3, Magnesium Level 1.6, Total Bilirubin 0.7, Aspartate Amino Transf (AST/SGOT) 22, Alanine Aminotransferase (ALT/SGPT) 22, Alkaline Phosphatase 101, Total Protein 5.6, Albumin 3.4 01/27/22 05:19: White Blood Count 4.7, Red Blood Count 3.63, Hemoglobin 9.7, Hematocrit 29, Mean Corpuscular Volume 80, Mean Corpuscular Hemoglobin 27, Mean Corpuscular Hemoglobin Concent 33, Red Cell Distribution Width 14.6, Platelet Count 292, Mean Platelet Volume 9.5, Immature Granulocyte % (Auto) 1, Neutrophils (%) (Auto) 64, Lymphocytes (%) (Auto) 24, Monocytes (%) (Auto) 9, Eosinophils (%) (Auto) 2, Basophils (%) (Auto) 0, Neutrophils # (Auto) 3.0, Lymphocytes # (Auto) 1.1, Monocytes # (Auto) 0.4, Eosinophils # (Auto) 0.1, Basophils # (Auto) 0.0, Immature Granulocyte # (Auto) 0.0, Sodium Level 126, Potassium Level 3.5, Chloride Level 95, Carbon Dioxide Level 19, Anion Gap 12, Blood Urea Nitrogen 9, Creatinine 0.71, Estimat Glomerular Filtration Rate 92, BUN/Creatinine Ratio 13, Glucose Level 91, Calcium Level 8.5, Corrected Calcium 9.1, Magnesium Level 1.4, Total Bilirubin 0.6, Aspartate Amino Transf (AST/SGOT) 19, Alanine Aminotransferase (ALT/SGPT) 20, Alkaline Phosphatase 91, Total Protein 5.1, Albumin 3.2 Discharge Home Medications: Active Scripts Active Stool Softener-Laxative Tablet (Sennosides/Docusate Sodium) 1 Each Tablet 2 Ea PO BID Oxyir Tablet (Oxycodone HCl) 5 Mg Tab 5 Mg PO Q4H PRN Lipitor (Atorvastatin Calcium) 80 Mg Tablet 80 Mg PO DAILY Reported Aspirin 81 Mg Tab.chew 81 Mg PO DAILY Tylenol Extra Strength (Acetaminophen) 500 Mg Tablet 500-1,000 Mg PO Q6H Losartan-Hctz 100-25 mg Tab (Losartan/Hydrochlorothiazide) 1 Each Tablet 1 Each PO BID Preservision Areds Softgel (Vit A/C/E/Zinc/Co) 1 Cap Capsule 1 Cap PO BID Donepezil HCl 10 Mg Tablet 10 Mg PO HS Vitamin D2 (Ergocalciferol (Vitamin D2)) 50 Mcg Capsule 50 Mcg PO DAILY [place] 3 1,000 mg Softgel ([place]-3 Fatty Acids/Fish Oil) 1 Each Capsule 1 Each PO Q12H Omeprazole 20 Mg Capsule.dr 20 Mg PO DAILY Venlafaxine HCl ER (Venlafaxine HCl) 150 Mg Cap.er.24h 150 Mg PO DAILY Montelukast Sodium 10 Mg Tablet 10 Mg PO HS Ondansetron Odt (Ondansetron) 8 Mg Tab.rapdis 8 Mg PO Q6H PRN Pepcid (Famotidine) 20 Mg Tablet 20 Mg PO BID Instructions to patient/family Please see electronic discharge instructions given to patient. Diagnosis/Problems Diagnosis/Problems (1) Hyponatremia (2) CVA (cerebral vascular accident) (3) Hypertension (4) Hip fracture (5) Dementia CARLITOS BOWLES DO Jan 27, 2022 10:52
--- NOTE | 2022-01-27 11:07 | Progress Note ---
MIGUEL JUNIOR 01/27/22 1107: Progress Note This is an 81-year-old white male who presented to the ER on 01/23/2022 with nausea, vomiting, and abdominal pain, found to have severe hyponatremia at 108. He is a clinic patient of a physician in [place] and is completing rehab at [facility] following a right hip fracture. History of COPD, wears O2 as needed. For hyponatrema, he was placed on normal saline with monitoring of BMP. Later IV fluids were later stopped and placed on fluid restriction to further increase serum Na. The patient's records were received showing medications he receives at [facility]. Losartan/Hydrochlorothiazide was recorded to have been started within the past week and Hydrochlorothiazide is likely the cause of the patient's severe hyponatremia. Hydrochlorothiazide was placed as an allergy for this patient to prevent future recurrence of this issue. CXR on 01/[address] abdomen/pelvis on 01/[address] on 01/23 showed a parenchymal mass. This was followed by an MRI on 01/24 which showed a small area of acute infarct. Cardiology was consulted. Loop recorder was placed. Carotid US on 01/25 showed Less than 50% stenosis of bilateral internal carotid arteries. Also found to have hypokalemia and hypochloremia which resolved. Patient was active and walking with PT during his stay. Transitioned to the 4th floor from ICU. patient improved throughout his course with the most recent serum sodium at 126. Patient was started on Atorvastatin on discharge as stroke prophylaxis and was already taking aspirin. He is being transferred back to [facility] for rehabilitation of his hip. ITZEL BOWLES DO 01/28/22 0532: Supervisory-Addendum Brief Verification & Attestation Participated in pt care: history, MDM, physical Personally performed: exam, history, MDM, supervision of care Care discussed with: Medical Student Procedures: n/a Results interpretation: Verified all documentation Verification and Attestation of Medical Student E/M Service A medical student performed and documented this service in my presence. I reviewed and verified all information documented by the medical student and made modifications to such information, when appropriate. I personally performed the physical exam and medical decision making. Itzel Bowles Jan 28, 2022,05:32 MIGUEL JUNIOR Jan 27, 2022 11:07 ITZEL BOWLES DO Jan 28, 2022 05:32
--- NOTE | 2022-01-27 11:11 | Physical Therapy Daily Note ---
PT Daily Note-Current Subjective Pt was sitting in chair upon entering room. Pt stated he was ready to walk today. Appearance Patient in recliner post tx with nurse call, phone, tray, chair alarm on. Mental Status Patient Orientation: Person, Place, Situation Transfers SCALE: Activities may be completed with or without assistive devices. 7-Felowtgkdn-bujkvnv completes the activity by him/herself with no assistance from a helper. 5-Set-up or Clean-up Assistance-helper sets up or cleans up; patient completes activity. [place] assists only prior to or following the activity. 4-Supervision or Touching Assistance-helper provides verbal cues and/or touching/steadying and/or contact guard assistance as patient completes activity. Assistance may be provided throughout the activity or intermittently. 3-Partial/Moderate Assistance-helper does LESS THAN HALF the effort. [place] lifts, holds or supports trunk or limbs, but provides less than half the effort. 2-Substantial/Maximal Assistance-helper does MORE THAN HALF the effort. [place] lifts or holds trunk or limbs and provides more than half the effort. 0-Olndchfch-ryysvu does ALL the effort. Patient does none of the effort to complete the activity. Or, the assistance of 2 or more helpers is required for the patient to complete the activity. If activity was not attempted, code reason: 7-Patient Refused. 9-Not Applicable-not attempted and the patient did not perform the activity before the current illness, exacerbation or injury. 10-Not Attempted due to Environmental Limitations-(lack of equipment, weather restraints, etc.). 88-Not Attempted due to Medical Conditions or Safety Concerns. 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 Wheelchair Training Does the Pt Use a Wheelchair?: No Type of Wheelchair: N/A Treatments Ambulation Assessment Current Status: Good Progress Pt did well walking with FWW and CGA. Pt initially walked with a R step-to gait, but eventually ambulated with a step-through gait. PT [facility] Goals [facility] Goals PT [facility] Goals Time Frame: Feb 04, 2022 Roll Left & Right (QC): 4 Sit to Lying (QC): 4 Lying-Sitting on Side/Bed(QC): 4 Sit to Stand (QC): 4 Chair/Tev-no-Agdwr Xfer(QC): 4 Toilet Transfer (QC): 4 Walk 10 feet (QC): 4 Walk 50ft with 2 Turns (QC): 4 Walk 150 ft (QC): 4 PT Plan Problem List Problem List: Activity Tolerance, Functional Strength, Safety, Balance, Gait, Transfer Treatment/Plan Treatment Plan: Continue Plan of Care Treatment Plan: Bed Mobility, Education, Functional Activity Jamie, Functional Strength, Gait, Safety, Therapeutic Exercise, Transfers Treatment Duration: Feb 04, 2022 Frequency: 6 times per week Estimated Hrs Per Day: .5 hour per day Patient and/or Family Agrees t: Yes Safety Risks/Education Patient Education: Gait Training, Safety Issues Teaching Recipient: Patient Teaching Methods: Discussion Response to Teaching: Verbalize Understanding Time/GCodes Time In: 1011 Time Out: 1023 Total Billed Treatment Time: 12 Total Billed Treatment 1 visit GT 12' TUNDE OCHOA PT Jan 27, 2022 11:11
[2022-01-27 11:20] VITALS: BP 136/65
[2022-01-27 15:50] VITALS: BP 168/80
--- NOTE | 2022-01-27 18:26 | Cardiology Progress Note ---
Progress Note-Cardiology Events since last exam Date Seen by Provider: Jan 27, 2022 Time Seen by Provider: 18:21 Events since last exam I am following him due to cerebrovascular accident. He was supposed to be t ransferred to an inpatient rehab today but at the last minute, his insurance denied the transfer. He denies chest discomfort, dyspnea, palpitations, syncope, or ankle edema. Certain portions of this document may have been dictated utilizing voice recognition technology. Inherent to this technology, typographical and grammatical errors may exist. As much as I am diligent to identify and correct these mistakes, some errors may remain in the document. Vitals Last set of Vitals Signs Vital Signs 01/26/22 01/27/22 13:27 15:50 Temp 36.7 Pulse 81 Resp 18 B/P (MAP) 168/80 (109) Pulse Ox 97 O2 Delivery Room Air FiO2 21 Labs Labs Laboratory Tests 01/27/22 05:19 Exam Vital Signs Vital Signs Date Time Temp Pulse Resp B/P (MAP) Pulse Ox O2 Delivery O2 Flow Rate FiO2 01/27/22 15:50 36.7 81 18 168/80 (109) 97 Room Air 01/26/22 13:27 21 Physical Exam General: Alert. No acute distress. Eye: No xanthelasma. HENT: Normocephalic. Neck: Jugular venous pressure does not appear elevated. Respiratory: Lungs are clear to auscultation. Respirations are non-labored. Breath sounds are equal. Symmetrical chest wall expansion. Cardiovascular: Normal rate. Regular rhythm. No murmur. No gallop. No edema. Gastrointestinal: Soft. Normal bowel sounds. Skin: Warm. Dry. Neurologic: Alert and oriented to person, place, time. Cranial nerves 3-11 grossly intact. Psychiatric: Cooperative. Appropriate mood & affect. Labs Laboratory Tests Test 01/27/22 05:19 Range/Units White Blood Count 4.7 4.3-11.0 10^3/uL Red Blood Count 3.63 L 4.30-5.52 10^6/uL Hemoglobin 9.7 L 13.3-17.7 g/dL Hematocrit 29 L 40-54 % Mean Corpuscular Volume 80 80-99 fL Mean Corpuscular Hemoglobin 27 25-34 pg Mean Corpuscular Hemoglobin Concent 33 32-36 g/dL Red Cell Distribution Width 14.6 H 10.0-14.5 % Platelet Count 292 130-400 10^3/uL Mean Platelet Volume 9.5 9.0-12.2 fL Immature Granulocyte % (Auto) 1 % Neutrophils (%) (Auto) 64 42-75 % Lymphocytes (%) (Auto) 24 12-44 % Monocytes (%) (Auto) 9 0-12 % Eosinophils (%) (Auto) 2 0-10 % Basophils (%) (Auto) 0 0-10 % Neutrophils # (Auto) 3.0 1.8-7.8 10^3/uL Lymphocytes # (Auto) 1.1 1.0-4.0 10^3/uL Monocytes # (Auto) 0.4 0.0-1.0 10^3/uL Eosinophils # (Auto) 0.1 0.0-0.3 10^3/uL Basophils # (Auto) 0.0 0.0-0.1 10^3/uL Immature Granulocyte # (Auto) 0.0 0.0-0.1 10^3/uL Sodium Level 126 L 135-145 MMOL/L Potassium Level 3.5 L 3.6-5.0 MMOL/L Chloride Level 95 L 98-107 MMOL/L Carbon Dioxide Level 19 L 21-32 MMOL/L Anion Gap 12 5-14 MMOL/L Blood Urea Nitrogen 9 7-18 MG/DL Creatinine 0.71 0.60-1.30 MG/DL Estimat Glomerular Filtration Rate 92 BUN/Creatinine Ratio 13 Glucose Level 91 70-105 MG/DL Calcium Level 8.5 8.5-10.1 MG/DL Corrected Calcium 9.1 8.5-10.1 MG/DL Magnesium Level 1.4 L 1.6-2.4 MG/DL Total Bilirubin 0.6 0.1-1.0 MG/DL Aspartate Amino Transf (AST/SGOT) 19 5-34 U/L Alanine Aminotransferase (ALT/SGPT) 20 0-55 U/L Alkaline Phosphatase 91 40-136 U/L Total Protein 5.1 L 6.4-8.2 GM/DL Albumin 3.2 3.2-4.5 GM/DL Diagnosis/Problems Diagnosis/Problems (1) Acute cerebrovascular accident Assessment & Plan: Exact etiology unclear. He has mild bilateral carotid atherosclerosis but no significant stenosis. This raises a concern for a cardiac embolic event. His echocardiogram did not show any obvious structural heart disease to explain cardiac source of embolism. This raises a concern for paroxysmal atrial fibrillation. I recommend he continue on aspirin, clopidogrel and high-dose statin medication. There is no indication to start him on oral anticoagulation at this time. He should just continue with dual antiplatelet therapy. He now has an implantable loop recorder which I will monitor in my office. From a cardiac standpoint, he can be transferred to inpatient rehab at any time. (2) Primary hypertension Assessment & Plan: Blood pressures are intermittently elevated although he has not this acute stroke so we want to avoid excessive drops in his blood pressure. I will restart a low-dose of losartan. Given his severe hyponatremia at the time of admission, we may want to avoid restarting hydrochlorothiazide. (3) Mixed hyperlipidemia Assessment & Plan: Continue statin medication. He should be on intensive dose statin for at least the next month due to the acute stroke. (4) Atherosclerosis of both carotid arteries Assessment & Plan: As above, he had a carotid ultrasound during this admission showing mild bilateral disease but no obstruction. He should continue on aspirin and statin medication. (5) Short-term memory loss Assessment & Plan: He tells me his primary provider started him on donezepil well over 5 years ago but he is completely oriented and does not appear to have any significant memory loss. I would question the diagnosis of dementia. MOLLY VELAZQUEZ JR, MD Jan 27, 2022 18:26
[2022-01-27] MEDS ORDERED: LOSARTAN 25 MG (COZAAR) TAB PO ONE (18:30)
--- NOTE | 2022-01-27 19:12 | Progress Note ---
Subjective Date Seen by a Provider: Jan 27, 2022 Time Seen by a Provider: 10:30 Subjective/Events-last exam Patient doing really well Set for discharge to [facility] has not approved it so will remain here over the weekend Fluid restriction remains Denies any pain Feels like he is doing a lot better Review of Systems General: Fatigue, Malaise Musculoskeletal: leg pain Objective Exam Last Set of Vital Signs Vital Signs Date Time Temp Pulse Resp B/P (MAP) Pulse Ox O2 Delivery O2 Flow Rate FiO2 01/27/22 15:50 36.7 81 18 168/80 (109) 97 Room Air 01/26/22 13:27 21 Capillary Refill : Less Than 3 Seconds I&O Intake and Output 01/27/22 00:00 Intake Total 790 ml Output Total 575 ml Balance 215 ml Intake Oral 790 ml Output Urine Total 575 ml General: Alert, Oriented X3, Cooperative, No Acute Distress Lungs: Clear to Auscultation, Normal Air Movement Heart: Regular Rate Psych/Mental Status: Mental Status NL Results Lab Laboratory Tests 01/27/22 05:19: White Blood Count 4.7, Red Blood Count 3.63L, Hemoglobin 9.7L, Hematocrit 29L, Mean Corpuscular Volume 80, Mean Corpuscular Hemoglobin 27, Mean Corpuscular Hemoglobin Concent 33, Red Cell Distribution Width 14.6H, Platelet Count 292, Mean Platelet Volume 9.5, Immature Granulocyte % (Auto) 1, Neutrophils (%) (Auto) 64, Lymphocytes (%) (Auto) 24, Monocytes (%) (Auto) 9, Eosinophils (%) (Auto) 2, Basophils (%) (Auto) 0, Neutrophils # (Auto) 3.0, Lymphocytes # (Auto) 1.1, Monocytes # (Auto) 0.4, Eosinophils # (Auto) 0.1, Basophils # (Auto) 0.0, Immature Granulocyte # (Auto) 0.0, Sodium Level 126L, Potassium Level 3.5L, Chloride Level 95L, Carbon Dioxide Level 19L, Anion Gap 12, Blood Urea Nitrogen 9, Creatinine 0.71, Estimat Glomerular Filtration Rate 92, BUN/Creatinine Ratio 13, Glucose Level 91, Calcium Level 8.5, Corrected Calcium 9.1, Magnesium Level 1.4L, Total Bilirubin 0.6, Aspartate Amino Transf (AST/SGOT) 19, Alanine Aminotransferase (ALT/SGPT) 20, Alkaline Phosphatase 91, Total Protein 5.1L, Albumin 3.2 Microbiology 01/23/22 MRSA Screen - Final, Complete MRSA not isolated Assessment/Plan Assessment/Plan Assess & Plan/Chief Complaint Assessment: Severe hyponatremia 108 now 126 caused by hydrochlorothiazide now listed as an allergy Recent right hip fracture [place] Hypertension Subacute stroke Status post loop recorder placement Anemia Plan: Statin Aspirin Loop recorder management PT and OT Fluid restriction Diagnosis/Problems Diagnosis/Problems (1) Hyponatremia (2) CVA (cerebral vascular accident) (3) Hypertension (4) Hip fracture (5) Dementia Clinical Quality Measures Admission Status Admission Dx Assessment: Hyponatremia N/V CVA on MRI Weakness Hip fracture hx Dementia Plan: Fluid restriction NS BMP Cardiology consult Carotid usg Lipid CARLITOS BOWLES DO Jan 27, 2022 19:12
[2022-01-27 20:06] VITALS: BP 177/94
[2022-01-27] MEDS: MONTELUKAST 10 MG (SINGULAIR) TAB PO SCH (20:52)
[2022-01-27] MEDS: ENOXAPARIN 40 MG/0.4 ML (LOVENOX) SYR SC SCH (20:52)
[2022-01-27] MEDS: DONEPEZIL 10 MG (ARICEPT) TAB PO SCH (20:52)
[2022-01-28] VITALS: BP 162/91
[2022-01-28 04:00] VITALS: BP 169/73
[2022-01-28 06:14] LABS: BASOPHILS % (AUTO) 0 % (0-10); EOSINOPHILS # (AUTO) 0.2 10^3/uL (0.0-0.3); EOSINOPHILS % (AUTO) 4 % (0-10); HEMATOCRIT 31 % (40-54); HEMOGLOBIN 10.2 g/dL (13.3-17.7); LYMPHOCYTES # (AUTO) 1.2 10^3/uL (1.0-4.0); LYMPHOCYTES % (AUTO) 24 % (12-44); MEAN CORPUSCULAR HEMOGLOBIN 27 pg (25-34); MEAN CORPUSCULAR HGB CONC 33 g/dL (32-36); MEAN CORPUSCULAR VOLUME 81 fL (80-99); MEAN PLATELET VOLUME 9.8 fL (9.0-12.2); MONOCYTES # (AUTO) 0.5 10^3/uL (0.0-1.0); MONOCYTES % (AUTO) 10 % (0-12); NEUTROPHILS # (AUTO) 3.1 10^3/uL (1.8-7.8); NEUTROPHILS % (AUTO) 62 % (42-75); PLATELET COUNT 295 10^3/uL (130-400)
[2022-01-28] MEDS: VENlafaxine XR 75 MG (EFFEXOR XR) CAP PO SCH (06:14)
--- NOTE | 2022-01-28 06:14 | Progress Note - Hospitalist ---
Subjective HPI/CC On Admission Date Seen by Provider: Jan 28, 2022 Time Seen by Provider: 10:30 Subjective/Events-last exam Patient doing well No major concerns Sodium level 128 Increasing fluid intake for him to be able to drink Bowels are moving Awaiting insurance approval [facility] Review of Systems General: Fatigue, Malaise Musculoskeletal: leg pain Objective Exam Vital Signs Vital Signs Date Time Temp Pulse Resp B/P (MAP) Pulse Ox O2 Delivery O2 Flow Rate FiO2 01/29/22 04:29 37.0 76 18 145/82 (103) 92 NIV CPAP 01/26/22 13:27 21 Capillary Refill : Less Than 3 Seconds General Appearance: No Apparent Distress, WD/WN, Chronically ill Respiratory: Lungs Clear, Normal Breath Sounds Cardiovascular: Regular Rate, Rhythm Neurologic/Psychiatric: Alert, Oriented x3, No Motor/Sensory Deficits, Normal Mood/Affect Results/Procedures Lab Patient resulted labs reviewed. Assessment/Plan Assessment and Plan Assess & Plan/Chief Complaint Assessment: Severe hyponatremia of 108 now 128 Subacute CVA status post loop recorder cryptogenic at this time Hypertension Recent hip fracture Dementia Plan: Fluid restriction Monitor closely Critical Care Critically Ill Patient Diagnosis/Problems Diagnosis/Problems (1) Hyponatremia (2) CVA (cerebral vascular accident) (3) Hypertension (4) Hip fracture (5) Dementia Clinical Quality Measures Admission Status Admission Dx Assessment: Hyponatremia N/V CVA on MRI Weakness Hip fracture hx Dementia Plan: Fluid restriction NS BMP Cardiology consult Carotid usg Lipid CARLITOS BOWLES DO Jan 28, 2022 06:14
[2022-01-28 06:25] LABS: ALBUMIN 3.2 GM/DL (3.2-4.5)
[2022-01-28 06:26] LABS: POTASSIUM 3.5 MMOL/L (3.6-5.0)
[2022-01-28 06:27] LABS: CALCIUM 8.7 MG/DL (8.5-10.1)
[2022-01-28 06:28] LABS: TOTAL PROTEIN 5.3 GM/DL (6.4-8.2)
[2022-01-28 06:30] LABS: BILIRUBIN,TOTAL 0.7 MG/DL (0.1-1.0)
[2022-01-28 06:32] LABS: CREATININE SERUM 0.7 MG/DL (0.60-1.30)
[2022-01-28 06:34] LABS: MAGNESIUM 1.5 MG/DL (1.6-2.4)
[2022-01-28 07:47] VITALS: BP 145/78
[2022-01-28] MEDS: BISACODYL 10 MG SUPP (DULCOLAX) PR SCH (07:52)
[2022-01-28] MEDS: polyethylene glycoL POWDER 17 GM (MIRALAX) PACK PO SCH ×2 (07:53→19:58)
[2022-01-28] MEDS: SENNA W/DOCUSATE (SENOKOT S) TABLET PO SCH ×2 (07:53→19:58)
[2022-01-28] MEDS: DOCUSATE SODIUM 100 MG (COLACE) CAP PO SCH ×2 (07:53→19:58)
[2022-01-28] MEDS: OMEGA 3 (FISH OIL) 1000 MG CAP PO SCH ×2 (08:43→20:35)
[2022-01-28] MEDS: PANTOPRAZOLE 20 MG TABLET (PROTONIX) PO SCH (08:43)
[2022-01-28] MEDS: LOSARTAN 25 MG (COZAAR) TAB PO SCH (08:43)
[2022-01-28] MEDS: FAMOTIDINE 20 MG (PEPCID) TABLET PO SCH ×2 (08:43→20:35)
[2022-01-28] MEDS: ASPIRIN 81 MG CHEW (CHILDREN'S ASA) PO SCH (08:43)
[2022-01-28] MEDS: LACTULOSE SYRUP 10GM/15ML (ENULOSE) 30ML UDC PO SCH ×2 (08:44→19:58)
[2022-01-28 11:23] VITALS: BP 138/77
--- NOTE | 2022-01-28 11:23 | Physical Therapy Daily Note ---
PT Daily Note-Current Subjective Pt. in bed eating breakfast, agrees to therapy. No complaints of pain. Mental Status Patient Orientation: Person, Place, Time, Situation Transfers SCALE: Activities may be completed with or without assistive devices. 4-Zgowepczlp-hnxelev completes the activity by him/herself with no assistance from a helper. 5-Set-up or Clean-up Assistance-helper sets up or cleans up; patient completes activity. [place] assists only prior to or following the activity. 4-Supervision or Touching Assistance-helper provides verbal cues and/or touching/steadying and/or contact guard assistance as patient completes activity. Assistance may be provided throughout the activity or intermittently. 3-Partial/Moderate Assistance-helper does LESS THAN HALF the effort. [place] lifts, holds or supports trunk or limbs, but provides less than half the effort. 2-Substantial/Maximal Assistance-helper does MORE THAN HALF the effort. [place] lifts or holds trunk or limbs and provides more than half the effort. 4-Qsvsyidie-kknckw does ALL the effort. Patient does none of the effort to complete the activity. Or, the assistance of 2 or more helpers is required for the patient to complete the activity. If activity was not attempted, code reason: 7-Patient Refused. 9-Not Applicable-not attempted and the patient did not perform the activity before the current illness, exacerbation or injury. 10-Not Attempted due to Environmental Limitations-(lack of equipment, weather restraints, etc.). 88-Not Attempted due to Medical Conditions or Safety Concerns. Lying to Sitting/Side of Bed(Q: 6 Sit to Stand (QC): 4 Chair/Cfw-mt-Quqdk Xfer(QC): 4 Weight Bearing Right Lower Extremity: Right Weight Bearing/Tolerated Left Lower Extremity: Left Full Weight Bearing Gait Training Does the Patient Walk?: Yes Distance: 350 ft Walk 150 ft (QC): 4 Gait Persons Needed: 1 Gait Assistive Device: FWW antalgic gait on R, step to pattern Treatments gait training Assessment Current Status: Good Progress Pt. had 1 episode of slight LOB needed therapist assist upon initial standing, otherwise demonstrated good gait balance with FWW. He has slow, antalgic gait on R. Pt. returned to room, up in chair post session with call light and all needs met. PT [employer] [facility] Goals [facility] Goals PT [employer] Goals Time Frame: Feb 04, 2022 Roll Left & Right (QC): 4 Sit to Lying (QC): 4 Lying-Sitting on Side/Bed(QC): 4 Sit to Stand (QC): 4 Chair/Uai-hh-Jvojo Xfer(QC): 4 Toilet Transfer (QC): 4 Walk 10 feet (QC): 4 Walk 50ft with 2 Turns (QC): 4 Walk 150 ft (QC): 4 PT Plan Treatment/Plan Treatment Plan: Continue Plan of Care Treatment Plan: Bed Mobility, Education, Functional Activity Jamie, Functional Strength, Gait, Safety, Therapeutic Exercise, Transfers Treatment Duration: Feb 04, 2022 Frequency: 6 times per week Estimated Hrs Per Day: .5 hour per day Patient and/or Family Agrees t: Yes Time/GCodes Time In: 0800 Time Out: 08 Total Billed Treatment Time: 30 Total Billed Treatment 1, GT 30' CORINA PLASCENCIA PT Jan 28, 2022 11:23
--- NOTE | 2022-01-28 14:23 | Cardiology Progress Note ---
Progress Note-Cardiology Events since last exam Date Seen by Provider: Jan 28, 2022 Time Seen by Provider: 14:18 Events since last exam I am following him due to his cerebrovascular accident. He denies any neuro logic symptoms. He is waiting to be transferred to an inpatient rehab. He hopes to go back to where he was at [facility] following his hip fracture. He denies chest pain, dyspnea at rest, palpitations, syncope, or ankle edema. Certain portions of this document may have been dictated utilizing voice recognition technology. Inherent to this technology, typographical and grammatical errors may exist. As much as I am diligent to identify and correct these mistakes, some errors may remain in the document. Vitals Last set of Vitals Signs Vital Signs 01/26/22 01/28/22 13:27 11:23 Temp 36.6 Pulse 74 Resp 20 B/P (MAP) 138/77 (97) Pulse Ox 94 O2 Delivery Room Air FiO2 21 Labs Labs Laboratory Tests 01/28/22 05:18 Exam Vital Signs Vital Signs Date Time Temp Pulse Resp B/P (MAP) Pulse Ox O2 Delivery O2 Flow Rate FiO2 01/28/22 11:23 36.6 74 20 138/77 (97) 94 Room Air 01/26/22 13:27 21 Physical Exam General: Alert. No acute distress. Eye: No xanthelasma. HENT: Normocephalic. Neck: Jugular venous pressure does not appear elevated. Respiratory: Lungs are clear to auscultation. Respirations are non-labored. Breath sounds are equal. Symmetrical chest wall expansion. Cardiovascular: Normal rate. Regular rhythm. No murmur. No gallop. No edema. Gastrointestinal: Soft. Normal bowel sounds. Skin: Warm. Dry. Neurologic: Alert and oriented to person, place, time. Cranial nerves 3-11 grossly intact. Psychiatric: Cooperative. Appropriate mood & affect. Labs Laboratory Tests Test 01/28/22 05:18 Range/Units White Blood Count 5.0 4.3-11.0 10^3/uL Red Blood Count 3.81 L 4.30-5.52 10^6/uL Hemoglobin 10.2 L 13.3-17.7 g/dL Hematocrit 31 L 40-54 % Mean Corpuscular Volume 81 80-99 fL Mean Corpuscular Hemoglobin 27 25-34 pg Mean Corpuscular Hemoglobin Concent 33 32-36 g/dL Red Cell Distribution Width 14.6 H 10.0-14.5 % Platelet Count 295 130-400 10^3/uL Mean Platelet Volume 9.8 9.0-12.2 fL Immature Granulocyte % (Auto) 0 % Neutrophils (%) (Auto) 62 42-75 % Lymphocytes (%) (Auto) 24 12-44 % Monocytes (%) (Auto) 10 0-12 % Eosinophils (%) (Auto) 4 0-10 % Basophils (%) (Auto) 0 0-10 % Neutrophils # (Auto) 3.1 1.8-7.8 10^3/uL Lymphocytes # (Auto) 1.2 1.0-4.0 10^3/uL Monocytes # (Auto) 0.5 0.0-1.0 10^3/uL Eosinophils # (Auto) 0.2 0.0-0.3 10^3/uL Basophils # (Auto) 0.0 0.0-0.1 10^3/uL Immature Granulocyte # (Auto) 0.0 0.0-0.1 10^3/uL Sodium Level 128 L 135-145 MMOL/L Potassium Level 3.5 L 3.6-5.0 MMOL/L Chloride Level 96 L 98-107 MMOL/L Carbon Dioxide Level 20 L 21-32 MMOL/L Anion Gap 12 5-14 MMOL/L Blood Urea Nitrogen 6 L 7-18 MG/DL Creatinine 0.70 0.60-1.30 MG/DL Estimat Glomerular Filtration Rate 92 BUN/Creatinine Ratio 9 Glucose Level 85 70-105 MG/DL Calcium Level 8.7 8.5-10.1 MG/DL Corrected Calcium 9.3 8.5-10.1 MG/DL Magnesium Level 1.5 L 1.6-2.4 MG/DL Total Bilirubin 0.7 0.1-1.0 MG/DL Aspartate Amino Transf (AST/SGOT) 22 5-34 U/L Alanine Aminotransferase (ALT/SGPT) 16 0-55 U/L Alkaline Phosphatase 94 40-136 U/L Total Protein 5.3 L 6.4-8.2 GM/DL Albumin 3.2 3.2-4.5 GM/DL Diagnosis/Problems Diagnosis/Problems (1) Acute cerebrovascular accident Assessment & Plan: Exact etiology unclear. He has mild bilateral carotid atherosclerosis but no significant stenosis. This raises a concern for a cardiac embolic event. His echocardiogram did not show any obvious structural heart disease to explain cardiac source of embolism. This raises a concern for paroxysmal atrial fibrillation. I recommend he continue on aspirin and high- dose statin medication. Clopidogrel has been discontinued. There is no indication to start him on oral anticoagulation at this time. He now has an implantable loop recorder which I will monitor in my office. From a cardiac standpoint, he can be transferred to inpatient rehab at any time. (2) Primary hypertension Assessment & Plan: Blood pressures are starting to improve since restarting losartan on 01/27. Given his severe hyponatremia at the time of admission, we may want to avoid restarting hydrochlorothiazide. If his blood pressure does not come under control, I will consider increasing the losartan. (3) Mixed hyperlipidemia Assessment & Plan: Continue statin medication. He should be on intensive dose statin for at least the next month due to the acute stroke. (4) Atherosclerosis of both carotid arteries Assessment & Plan: He had a carotid ultrasound during this admission showing mild bilateral disease but no obstruction. He should continue on aspirin and statin medication. (5) Short-term memory loss Assessment & Plan: He tells me his primary provider started him on donezepil well over 5 years ago but he is completely oriented and does not appear to have any significant memory loss. I would question the diagnosis of dementia. MOLLY VELAZQUEZ JR, MD Jan 28, 2022 14:23
[2022-01-28 15:54] VITALS: BP 136/77
[2022-01-28 20:00] VITALS: BP 127/70
[2022-01-28] MEDS: ENOXAPARIN 40 MG/0.4 ML (LOVENOX) SYR SC SCH (20:35)
[2022-01-28] MEDS: MONTELUKAST 10 MG (SINGULAIR) TAB PO SCH (20:35)
[2022-01-28] MEDS: DONEPEZIL 10 MG (ARICEPT) TAB PO SCH (20:35)
[2022-01-29 00:35] VITALS: BP 153/78
[2022-01-29 04:29] VITALS: BP 145/82
[2022-01-29 06:00] LABS: BASOPHILS % (AUTO) 0 % (0-10); EOSINOPHILS # (AUTO) 0.2 10^3/uL (0.0-0.3); EOSINOPHILS % (AUTO) 3 % (0-10); HEMATOCRIT 32 % (40-54); HEMOGLOBIN 10.4 g/dL (13.3-17.7); LYMPHOCYTES # (AUTO) 1.1 10^3/uL (1.0-4.0); LYMPHOCYTES % (AUTO) 18 % (12-44); MEAN CORPUSCULAR HEMOGLOBIN 27 pg (25-34); MEAN CORPUSCULAR HGB CONC 33 g/dL (32-36); MEAN CORPUSCULAR VOLUME 81 fL (80-99); MEAN PLATELET VOLUME 9.3 fL (9.0-12.2); MONOCYTES # (AUTO) 0.6 10^3/uL (0.0-1.0); MONOCYTES % (AUTO) 10 % (0-12); NEUTROPHILS # (AUTO) 4.1 10^3/uL (1.8-7.8); NEUTROPHILS % (AUTO) 69 % (42-75); PLATELET COUNT 295 10^3/uL (130-400)
[2022-01-29 06:13] LABS: ALBUMIN 3.3 GM/DL (3.2-4.5); POTASSIUM 3.8 MMOL/L (3.6-5.0)
[2022-01-29 06:15] LABS: CALCIUM 8.9 MG/DL (8.5-10.1)
[2022-01-29 06:16] LABS: TOTAL PROTEIN 5.5 GM/DL (6.4-8.2)
[2022-01-29 06:18] LABS: BILIRUBIN,TOTAL 0.7 MG/DL (0.1-1.0)
[2022-01-29 06:19] LABS: CREATININE SERUM 0.76 MG/DL (0.60-1.30)
[2022-01-29 06:22] LABS: MAGNESIUM 1.5 MG/DL (1.6-2.4)
[2022-01-29] MEDS: VENlafaxine XR 75 MG (EFFEXOR XR) CAP PO SCH (06:33)
--- NOTE | 2022-01-29 06:57 | Progress Note - Hospitalist ---
Subjective HPI/CC On Admission Date Seen by Provider: Jan 29, 2022 Time Seen by Provider: 12:30 Subjective/Events-last exam Patient doing really well Sodium level 127 so we will start salt tablets No pain is reported Bowels are moving well Review of Systems General: Fatigue, Malaise Musculoskeletal: leg pain Objective Exam Vital Signs Vital Signs Date Time Temp Pulse Resp B/P (MAP) Pulse Ox O2 Delivery O2 Flow Rate FiO2 01/30/22 04:10 37.2 78 18 155/76 (102) 95 NIV CPAP 01/26/22 13:27 21 Capillary Refill : Less Than 3 Seconds General Appearance: No Apparent Distress, WD/WN, Chronically ill Respiratory: Lungs Clear, Normal Breath Sounds Cardiovascular: Regular Rate, Rhythm Neurologic/Psychiatric: Alert, Oriented x3, No Motor/Sensory Deficits, Normal Mood/Affect Results/Procedures Lab Laboratory Tests 01/29/22 05:47 Patient resulted labs reviewed. Assessment/Plan Assessment and Plan Assess & Plan/Chief Complaint Assessment: Severe hyponatremia of 108 now 127 Subacute CVA status post loop recorder cryptogenic at this time Hypertension Recent hip fracture Dementia Plan: Fluid restriction Monitor closely 01/29/2022: Pain control Start salt tablets Critical Care Critically Ill Patient Diagnosis/Problems Diagnosis/Problems (1) Hyponatremia (2) CVA (cerebral vascular accident) (3) Hypertension (4) Hip fracture (5) Dementia Clinical Quality Measures Admission Status Admission Dx Assessment: Hyponatremia N/V CVA on MRI Weakness Hip fracture hx Dementia Plan: Fluid restriction NS BMP Cardiology consult Carotid usg Lipid CARLITOS BOWLES DO Jan 29, 2022 06:57
[2022-01-29 07:30] VITALS: BP 148/88
[2022-01-29] MEDS: OMEGA 3 (FISH OIL) 1000 MG CAP PO SCH ×2 (08:49→21:07)
[2022-01-29] MEDS: SENNA W/DOCUSATE (SENOKOT S) TABLET PO SCH ×2 (08:49→21:42)
[2022-01-29] MEDS: LOSARTAN 25 MG (COZAAR) TAB PO SCH (08:49)
[2022-01-29] MEDS: PANTOPRAZOLE 20 MG TABLET (PROTONIX) PO SCH (08:49)
[2022-01-29] MEDS: DOCUSATE SODIUM 100 MG (COLACE) CAP PO SCH ×2 (08:49→21:42)
[2022-01-29] MEDS: polyethylene glycoL POWDER 17 GM (MIRALAX) PACK PO SCH ×2 (08:49→21:42)
[2022-01-29] MEDS: ASPIRIN 81 MG CHEW (CHILDREN'S ASA) PO SCH (08:49)
[2022-01-29] MEDS: BISACODYL 10 MG SUPP (DULCOLAX) PR SCH (08:50)
[2022-01-29] MEDS: LACTULOSE SYRUP 10GM/15ML (ENULOSE) 30ML UDC PO SCH ×2 (08:50→21:42)
[2022-01-29] MEDS: FAMOTIDINE 20 MG (PEPCID) TABLET PO SCH ×2 (08:50→21:07)
[2022-01-29] MEDS: SODIUM CHLORIDE 1 GM TABLET PO SCH ×2 (09:00→21:08)
--- NOTE | 2022-01-29 10:06 | Progress Note ---
Standard Progress Note Progress Notes/Assess & Plan Date Seen by a Provider: Jan 29, 2022 Time Seen by a Provider: 10:05 Progress/Assessment & Plan I did not see him today. The plan is for him to transfer back to [facility] tomorrow for ongoing rehabilitation after his previous hip surgery that occurred prior to this admission. He is scheduled to see me in the office next week for wound check. I told the nurse she can remove the dressing from the loop recorder insertion and just put a Band-Aid. Please call if you have other questions or concerns. MOLLY VELAZQUEZ JR, MD Jan 29, 2022 10:06
[2022-01-29 11:34] VITALS: BP 137/75
[2022-01-29 15:40] VITALS: BP_SYST 146; BP_SYST 153; BP_DIAS 78; BP_DIAS 80
[2022-01-29 19:45] VITALS: BP 144/81
[2022-01-29] MEDS: DONEPEZIL 10 MG (ARICEPT) TAB PO SCH (21:08)
[2022-01-29] MEDS: ENOXAPARIN 40 MG/0.4 ML (LOVENOX) SYR SC SCH (21:08)
[2022-01-29] MEDS: MONTELUKAST 10 MG (SINGULAIR) TAB PO SCH (21:08)
[2022-01-30 00:25] VITALS: BP 141/86
[2022-01-30 04:10] VITALS: BP 155/76
[2022-01-30 06:07] LABS: BASOPHILS % (AUTO) 1 % (0-10); EOSINOPHILS # (AUTO) 0.2 10^3/uL (0.0-0.3); EOSINOPHILS % (AUTO) 3 % (0-10); HEMATOCRIT 32 % (40-54); HEMOGLOBIN 10.4 g/dL (13.3-17.7); LYMPHOCYTES # (AUTO) 1.2 10^3/uL (1.0-4.0); LYMPHOCYTES % (AUTO) 22 % (12-44); MEAN CORPUSCULAR HEMOGLOBIN 27 pg (25-34); MEAN CORPUSCULAR HGB CONC 32 g/dL (32-36); MEAN CORPUSCULAR VOLUME 83 fL (80-99); MEAN PLATELET VOLUME 9.5 fL (9.0-12.2); MONOCYTES # (AUTO) 0.6 10^3/uL (0.0-1.0); MONOCYTES % (AUTO) 10 % (0-12); NEUTROPHILS # (AUTO) 3.6 10^3/uL (1.8-7.8); NEUTROPHILS % (AUTO) 64 % (42-75); PLATELET COUNT 292 10^3/uL (130-400); WHITE BLOOD COUNT 5.6 10^3/uL (4.3-11.0)
[2022-01-30 06:24] LABS: ALBUMIN 3.4 GM/DL (3.2-4.5); POTASSIUM 3.9 MMOL/L (3.6-5.0)
[2022-01-30 06:26] LABS: TOTAL PROTEIN 5.6 GM/DL (6.4-8.2)
[2022-01-30 06:28] LABS: BILIRUBIN,TOTAL 0.7 MG/DL (0.1-1.0)
[2022-01-30] MEDS: VENlafaxine XR 75 MG (EFFEXOR XR) CAP PO SCH (06:28)
[2022-01-30 06:30] LABS: CREATININE SERUM 0.78 MG/DL (0.60-1.30)
[2022-01-30 06:33] LABS: MAGNESIUM 1.7 MG/DL (1.6-2.4)
[2022-01-30] MEDS ORDERED: AMLO5TAB4 PO (07:09)
[2022-01-30] MEDS ORDERED: NF-NACL1GT PO (07:09)
--- NOTE | 2022-01-30 07:10 | Discharge Summary ---
Discharge Summary Hospital Course Was the Problem List Reviewed?: Yes Problems/Dx: (1) Acute cerebrovascular accident (2) Primary hypertension (3) Mixed hyperlipidemia (4) Atherosclerosis of both carotid arteries (5) Short-term memory loss Hospital Course Date of Admission: Jan 23, 2022 at 18:41 Admission Diagnosis : Family Physician/Provider: Bruno Richardson MD Date of Discharge: 01/30/22 Discharge Diagnosis: Hyponatremia severe 108 due to hydrochlorothiazide and component of SIADH, subacute CVA not a TPA candidate, hypertension, status post loop recorder Hospital Course: Pt had an uneventful 8 day hospital course, most of it waiting on insurance approval to go back to [facility]. He was at [facility] for right hip fracture repair debility. He was placed on normal saline IV fluid, monitored sodium level closely. He underwent salt tablet initiation along with fluid restriction. Sub acute CVA noted but overall he was stable for discharge and went back to [facility]. Labs and Pending Lab Test: Laboratory Tests 01/30/22 05:38: White Blood Count 5.6, Red Blood Count 3.88L, Hemoglobin 10.4L, Hematocrit 32L, Mean Corpuscular Volume 83, Mean Corpuscular Hemoglobin 27, Mean Corpuscular Hemoglobin Concent 32, Red Cell Distribution Width 14.8H, Platelet Count 292, Mean Platelet Volume 9.5, Immature Granulocyte % (Auto) 0, Neutrophils (%) (A uto) 64, Lymphocytes (%) (Auto) 22, Monocytes (%) (Auto) 10, Eosinophils (%) (Auto) 3, Basophils (%) (Auto) 1, Neutrophils # (Auto) 3.6, Lymphocytes # (Auto) 1.2, Monocytes # (Auto) 0.6, Eosinophils # (Auto) 0.2, Basophils # (Auto) 0.0, Immature Granulocyte # (Auto) 0.0, Sodium Level 129L, Potassium Level 3.9, Chloride Level 98, Carbon Dioxide Level 21, Anion Gap 10, Blood Urea Nitrogen 10, Creatinine 0.78, Estimat Glomerular Filtration Rate 89, BUN/Creatinine Ratio 13, Glucose Level 92, Calcium Level 9.0, Corrected Calcium 9.5, Magnesium Level 1.7, Total Bilirubin 0.7, Aspartate Amino Transf (AST/SGOT) 18, Alanine Aminotransferase (ALT/SGPT) 19, Alkaline Phosphatase 101, Total Protein 5.6L, Albumin 3.4 Microbiology 01/23/22 MRSA Screen - Final, Complete MRSA not isolated Home Meds Active Norvasc (Amlodipine Besylate) 5 Mg Tablet 5 Mg PO DAILY Sodium Chloride 1 Gm Tab 1 Gm PO BID Stool Softener-Laxative Tablet (Sennosides/Docusate Sodium) 1 Each Tablet 2 Ea PO BID Oxyir Tablet (Oxycodone HCl) 5 Mg Tab 5 Mg PO Q4H PRN Lipitor (Atorvastatin Calcium) 80 Mg Tablet 80 Mg PO DAILY Reported Aspirin 81 Mg Tab.chew 81 Mg PO DAILY Tylenol Extra Strength (Acetaminophen) 500 Mg Tablet 500-1,000 Mg PO Q6H Losartan-Hctz 100-25 mg Tab (Losartan/Hydrochlorothiazide) 1 Each Tablet 1 Each PO BID Preservision Areds Softgel (Vit A/C/E/Zinc/Co) 1 Cap Capsule 1 Cap PO BID Donepezil HCl 10 Mg Tablet 10 Mg PO HS Vitamin D2 (Ergocalciferol (Vitamin D2)) 50 Mcg Capsule 50 Mcg PO DAILY [place] 3 1,000 mg Softgel ([place]-3 Fatty Acids/Fish Oil) 1 Each Capsule 1 Each PO Q12H Omeprazole 20 Mg Capsule.dr 20 Mg PO DAILY Venlafaxine HCl ER (Venlafaxine HCl) 150 Mg Cap.er.24h 150 Mg PO DAILY Montelukast Sodium 10 Mg Tablet 10 Mg PO HS Ondansetron Odt (Ondansetron) 8 Mg Tab.rapdis 8 Mg PO Q6H PRN Pepcid (Famotidine) 20 Mg Tablet 20 Mg PO BID Assessment/Pt Instructions PCP in 1 week Discharge Planning: <30 minutes discharge planning Discharge Instructions Discharge Diet: No Restrictions, Other Diet Activity as Tolerated: Yes Discharge Physical Examination Vital Signs Vital Signs Date Time Temp Pulse Resp B/P (MAP) Pulse Ox O2 Delivery O2 Flow Rate FiO2 01/30/22 04:10 37.2 78 18 155/76 (102) 95 NIV CPAP 01/26/22 13:27 21 General Appearance: No Apparent Distress, WD/WN, Chronically ill Allergies: Coded Allergies: Penicillins (Verified Allergy, Unknown, 01/23/22) bee venom protein (honey bee) (Verified Allergy, Unknown, 01/23/22) codeine (Verified Allergy, Unknown, 01/23/22) hydrochlorothiazide (Verified Allergy, Unknown, 01/26/22) Hyponatremia Discharge Summary Date of Admission Jan 23, 2022 at 18:41 Date of Discharge Discharge Date: Jan 30, 2022 Discharge Diagnosis Assessment: Severe hyponatremia of 108 now 127 Subacute CVA status post loop recorder cryptogenic at this time Hypertension Recent hip fracture Dementia Plan: Fluid restriction Monitor closely 01/29/2022: Pain control Start salt tablets (1) Acute cerebrovascular accident Assessment & Plan: Exact etiology unclear. He has mild bilateral carotid atherosclerosis but no significant stenosis. This raises a concern for a cardiac embolic event. His echocardiogram did not show any obvious structural heart disease to explain cardiac source of embolism. This raises a concern for paroxysmal atrial fibrillation. I recommend he continue on aspirin and high- dose statin medication. Clopidogrel has been discontinued. There is no indication to start him on oral anticoagulation at this time. He now has an implantable loop recorder which I will monitor in my office. From a cardiac standpoint, he can be transferred to inpatient rehab at any time. (2) Primary hypertension Assessment & Plan: Blood pressures are starting to improve since restarting losartan on 01/27. Given his severe hyponatremia at the time of admission, we may want to avoid restarting hydrochlorothiazide. If his blood pressure does not come under control, I will consider increasing the losartan. (3) Mixed hyperlipidemia Assessment & Plan: Continue statin medication. He should be on intensive dose statin for at least the next month due to the acute stroke. (4) Atherosclerosis of both carotid arteries Assessment & Plan: He had a carotid ultrasound during this admission showing mild bilateral disease but no obstruction. He should continue on aspirin and statin medication. (5) Short-term memory loss Assessment & Plan: He tells me his primary provider started him on donezepil well over 5 years ago but he is completely oriented and does not appear to have any significant memory loss. I would question the diagnosis of dementia. CARLITOS BOWLES DO Jan 30, 2022 07:10
[2022-01-30 08:00] VITALS: BP 131/78
[2022-01-30] MEDS ORDERED: amLODIPine 5 MG (NORVASC) TAB PO SCH (09:00)
--- NOTE | 2022-01-30 10:01 | Cardiology Progress Note ---
Progress Note-Cardiology Events since last exam Date Seen by Provider: Jan 30, 2022 Time Seen by Provider: 10:00 Events since last exam I am following him due to cerebrovascular accident. The plan is to transfer him back to [facility] to continue with inpatient rehab following his previous hip fracture. He denies chest discomfort, dyspnea at rest, palpitations, syncope, or ankle edema. Certain portions of this document may have been dictated utilizing voice recognition technology. Inherent to this technology, typographical and grammatical errors may exist. As much as I am diligent to identify and correct these mistakes, some errors may remain in the document. Vitals Last set of Vitals Signs Vital Signs 01/26/22 01/30/22 01/30/22 13:27 08:00 09:00 Temp 36.5 Pulse 88 Resp 20 B/P (MAP) 131/78 (95) Pulse Ox 91 O2 Delivery Room Air FiO2 21 Labs Labs Laboratory Tests 01/30/22 05:38 Exam Vital Signs Vital Signs Date Time Temp Pulse Resp B/P (MAP) Pulse Ox O2 Delivery O2 Flow Rate FiO2 01/30/22 09:00 Room Air 01/30/22 08:00 36.5 88 20 131/78 (95) 91 01/26/22 13:27 21 Physical Exam General: Alert. No acute distress. He is hard of hearing. Eye: No xanthelasma. HENT: Normocephalic. Neck: Jugular venous pressure does not appear elevated. Respiratory: Lungs are clear to auscultation. Respirations are non-labored. Breath sounds are equal. Symmetrical chest wall expansion. Cardiovascular: Normal rate. Regular rhythm. No murmur. No gallop. No edema. Gastrointestinal: Soft. Normal bowel sounds. Skin: Warm. Dry. I removed the dressing from the loop recorder insertion site. The wound is dry and without erythema. Neurologic: Alert and oriented to person, place, time. Cranial nerves 3-11 grossly intact. Psychiatric: Cooperative. Appropriate mood & affect. Labs Laboratory Tests Test 01/30/22 05:38 Range/Units White Blood Count 5.6 4.3-11.0 10^3/uL Red Blood Count 3.88 L 4.30-5.52 10^6/uL Hemoglobin 10.4 L 13.3-17.7 g/dL Hematocrit 32 L 40-54 % Mean Corpuscular Volume 83 80-99 fL Mean Corpuscular Hemoglobin 27 25-34 pg Mean Corpuscular Hemoglobin Concent 32 32-36 g/dL Red Cell Distribution Width 14.8 H 10.0-14.5 % Platelet Count 292 130-400 10^3/uL Mean Platelet Volume 9.5 9.0-12.2 fL Immature Granulocyte % (Auto) 0 % Neutrophils (%) (Auto) 64 42-75 % Lymphocytes (%) (Auto) 22 12-44 % Monocytes (%) (Auto) 10 0-12 % Eosinophils (%) (Auto) 3 0-10 % Basophils (%) (Auto) 1 0-10 % Neutrophils # (Auto) 3.6 1.8-7.8 10^3/uL Lymphocytes # (Auto) 1.2 1.0-4.0 10^3/uL Monocytes # (Auto) 0.6 0.0-1.0 10^3/uL Eosinophils # (Auto) 0.2 0.0-0.3 10^3/uL Basophils # (Auto) 0.0 0.0-0.1 10^3/uL Immature Granulocyte # (Auto) 0.0 0.0-0.1 10^3/uL Sodium Level 129 L 135-145 MMOL/L Potassium Level 3.9 3.6-5.0 MMOL/L Chloride Level 98 98-107 MMOL/L Carbon Dioxide Level 21 21-32 MMOL/L Anion Gap 10 5-14 MMOL/L Blood Urea Nitrogen 10 7-18 MG/DL Creatinine 0.78 0.60-1.30 MG/DL Estimat Glomerular Filtration Rate 89 BUN/Creatinine Ratio 13 Glucose Level 92 70-105 MG/DL Calcium Level 9.0 8.5-10.1 MG/DL Corrected Calcium 9.5 8.5-10.1 MG/DL Magnesium Level 1.7 1.6-2.4 MG/DL Total Bilirubin 0.7 0.1-1.0 MG/DL Aspartate Amino Transf (AST/SGOT) 18 5-34 U/L Alanine Aminotransferase (ALT/SGPT) 19 0-55 U/L Alkaline Phosphatase 101 40-136 U/L Total Protein 5.6 L 6.4-8.2 GM/DL Albumin 3.4 3.2-4.5 GM/DL Diagnosis/Problems Diagnosis/Problems (1) Acute cerebrovascular accident Assessment & Plan: Exact etiology unclear. He has mild bilateral carotid atherosclerosis but no significant stenosis. This raises a concern for a cardiac embolic event. His echocardiogram did not show any obvious structural heart disease to explain cardiac source of embolism. This raises a concern for paroxysmal atrial fibrillation. I recommend he continue on aspirin and high- dose statin medication. Clopidogrel has been discontinued. There is no indication to start him on oral anticoagulation at this time. He now has an implantable loop recorder which I will monitor in my office. From a cardiac standpoint, he can be transferred to inpatient rehab at any time. (2) Primary hypertension Assessment & Plan: Blood pressures are starting to improve since restarting losartan on 01/27. Given his severe hyponatremia at the time of admission, we may want to avoid restarting hydrochlorothiazide. If his blood pressure does not come under control, I will consider increasing the losartan. The hospital provider has now started him on amlodipine. (3) Mixed hyperlipidemia Assessment & Plan: Continue statin medication. He should be on intensive dose statin for at least the next month due to the acute stroke. (4) Atherosclerosis of both carotid arteries Assessment & Plan: He had a carotid ultrasound during this admission showing mild bilateral disease but no obstruction. He should continue on aspirin and statin medication. (5) Short-term memory loss Assessment & Plan: He tells me his primary provider started him on donezepil well over 5 years ago but he is completely oriented and does not appear to have any significant memory loss. I would question the diagnosis of dementia. MOLLY VELAZQUEZ JR, MD Jan 30, 2022 10:01
[2022-01-30] MEDS: FAMOTIDINE 20 MG (PEPCID) TABLET PO SCH (10:02)
[2022-01-30] MEDS: LOSARTAN 25 MG (COZAAR) TAB PO SCH (10:02)
[2022-01-30] MEDS: DOCUSATE SODIUM 100 MG (COLACE) CAP PO SCH (10:03)
[2022-01-30] MEDS: OMEGA 3 (FISH OIL) 1000 MG CAP PO SCH (10:03)
[2022-01-30] MEDS: SENNA W/DOCUSATE (SENOKOT S) TABLET PO SCH (10:03)
[2022-01-30] MEDS: polyethylene glycoL POWDER 17 GM (MIRALAX) PACK PO SCH (10:03)
[2022-01-30] MEDS: LACTULOSE SYRUP 10GM/15ML (ENULOSE) 30ML UDC PO SCH (10:03)
[2022-01-30] MEDS: ASPIRIN 81 MG CHEW (CHILDREN'S ASA) PO SCH (10:03)
[2022-01-30] MEDS: PANTOPRAZOLE 20 MG TABLET (PROTONIX) PO SCH (10:03)
[2022-01-30] MEDS: SODIUM CHLORIDE 1 GM TABLET PO SCH (10:04)
[2022-01-30] MEDS: BISACODYL 10 MG SUPP (DULCOLAX) PR SCH (10:06)
== END 2022-01-30 13:30 | DRG 981 ==
LOC: EDUNIT# 17:03 → ER 17:07 → ICU 18:41 → 4TH 01-26 12:55
PROVIDERS: ADMIT Internal Medicine; ATTEND Internal Medicine
PROC: 8E0ZXY6 Isolation (ICD-10-PCS; 2022-01-23)
PROC: 0JH632Z Insertion of Monitoring Device into Chest Subcutaneous Tissue and Fascia, Percutaneous Approach (ICD-10-PCS; principal; 2022-01-26)
DX: E22.2 Syndrome of inappropriate secretion of antidiuretic hormone (principal); I63.9 Cerebral infarction, unspecified; E87.6 Hypokalemia; E87.8 Other disorders of electrolyte and fluid balance, not elsewhere classified; T50.2X5A Adverse effect of carbonic-anhydrase inhibitors, benzothiadiazides and other diuretics, initial encounter; I10 Essential (primary) hypertension; E78.00 Pure hypercholesterolemia, unspecified; E78.2 Mixed hyperlipidemia; J44.9 Chronic obstructive pulmonary disease, unspecified; S72.001D Fracture of unspecified part of neck of right femur, subsequent encounter for closed fracture with routine healing; D64.9 Anemia, unspecified; F03.90 Unspecified dementia, unspecified severity, without behavioral disturbance, psychotic disturbance, mood disturbance, and anxiety; K21.9 Gastro-esophageal reflux disease without esophagitis; I65.23 Occlusion and stenosis of bilateral carotid arteries; H91.90 Unspecified hearing loss, unspecified ear; Z87.891 Personal history of nicotine dependence; Z79.82 Long term (current) use of aspirin; Z88.5 Allergy status to narcotic agent; Z88.0 Allergy status to penicillin; Z91.030 Bee allergy status
CPT/HCPCS: 33285; 36415; 70450; 70553; 71045; 74176; 80048; 80053; 80061; 81000; 82728; 83540; 83550; 83690; 83735; 83880; 83930; 83935; 84100; 84300; 84443; 85025; 85610; 87081; 93005; 93306; 93880; 96374; 96375